=== PATIENT | male | born 1955 | race Caucasian/White ===

== ENCOUNTER → 2016-10-01 | Outpatient (CLI) | payer BC ==
[~2016-10-01] MED LIST: LOSA50TA6 PO; MELO7.5T5 PO; RIFA150C15 PO; SULF800T23 PO
[2016-10-01 13:28] LABS: BLOOD UREA NITROGEN 13 mg/dl (7-18); BUN/CREATININE RATIO 12.3 (10-20); CALCIUM 9.1 mg/dl (8.5-10.1); CARBON DIOXIDE 30 mmol/L (21-32); CHLORIDE 108 mmol/L (98-107); GLUCOSE 105 mg/dl (70-99); POTASSIUM 4.3 mmol/L (3.5-5.1); SODIUM 142 mmol/L (136-145)
[2016-10-01 13:29] LABS: RHEUMATOID FACTOR < 10.0 U/mL (0-15)
== END | disposition home or self-care (01) ==
LOC: C.LABMFLN 07:41
PROVIDERS: ATTEND Family Medicine
DX: N53.8 Other male sexual dysfunction (principal); G62.9 Polyneuropathy, unspecified; I10 Essential (primary) hypertension; M25.50 Pain in unspecified joint

== ENCOUNTER → 2016-10-20 | Outpatient (CLI) | payer BC ==
[~2016-10-20] VITALS: Ht 177.8 cm; Wt 95.5 kg
[2016-10-20 11:48] VITALS: BP 122/81; PULSE 66; Ht 177.8 cm; Wt 95.5 kg
== END | disposition home or self-care (01) ==
LOC: C.NEUR 11:24
PROVIDERS: ATTEND Family Medicine
DX: G62.9 Polyneuropathy, unspecified (principal); N53.19 Other ejaculatory dysfunction; N53.8 Other male sexual dysfunction; I10 Essential (primary) hypertension; M25.50 Pain in unspecified joint

== ENCOUNTER → 2016-12-27 | Outpatient (CLI) | payer BC | END | disposition home or self-care (01) | LOC: C.LABMFLN 10:41 | PROVIDERS: ATTEND Physician Assistant | DX: L03.811 Cellulitis of head [any part, except face] (principal) ==

== ENCOUNTER → 2017-01-04 | Outpatient (CLI) | payer BC ==
[~2017-01-04] MED LIST changes: -RIFA150C15 PO
== END | disposition home or self-care (01) ==
LOC: C.LABMFLN 08:46
PROVIDERS: ATTEND Family Medicine
DX: L03.811 Cellulitis of head [any part, except face] (principal)

== ENCOUNTER 2017-01-08 15:41 | Emergency (ER) | payer BC ==
[~2017-01-08] VITALS: Ht 177.8 cm; Wt 92.6 kg
[2017-01-08 15:44] VITALS: Ht 177.8 cm; Wt 92.6 kg
--- NOTE | 2017-01-08 16:15 | EMERGENCY ROOM VISIT NOTE ---
History First contact with patient: 15:49 Chief Complaint: WOUND RECHECK Stated Complaint: PACKING REPLACEMENT Nursing Triage Summary: Pt states he has MRSA in a posterior neck wound. States he is seen at the wound care clinic but the packing came out and he just needs that replaced. History of Present Illness The patient is a 61 year old male who presents to the Emergency Room via private vehicle with complaints of "packing replacement". The patient states that he follows with the wound care center for MRSA infections. Most recently, on the posterior aspect of his neck he had an abscess drained this past Tuesday. This was performed at the [facility] wound care center. He states that unfortunately the packing actually became removed therefore he is here today for repacking. He notes minimal pain, and has been taking Bactrim for the infection. He denies any fevers, chills and his tetanus is up-to-date. Review of Systems A complete 6-point Review of Systems was discussed with the patient, with pertinent positives and negatives listed in the History of Present Illness. All remaining Review of Systems questions can be considered negative unless otherwise specified. Past Medical/Surgical History MRSA infection. High blood pressure, skin problems Family History Diabetes, heart disease, high blood pressure, cancer. Social History Smoking Status: Never Smoker Marital Status: single Occupation Status: employed Current/Historical Medications Scheduled Losartan Potassium (Cozaar), 1 TAB PO DAILY Meloxicam (Mobic), 15 MG PO DAILY Sulfa/Trimethoprim (Bactrim Ds 800MG/160MG), 1 TAB PO BID Allergies Uncoded Allergies: blood pressure med (Adverse Reaction, Mild, cough, 01/07/17) Physical Exam Vital Signs Date Time Temp Pulse Resp B/P (MAP) Pulse Ox O2 Delivery O2 Flow Rate FiO2 01/08/17 15:44 36.7 85 16 118/73 95 Room Air Physical Exam VITAL SIGNS - Vital signs and nursing notes were reviewed. Patient is afebrile , normotensive, non-tachycardic and saturating well on room air 95%. GENERAL -61-year-old male appearing his stated age who is in no acute distress. Communicates well with provider and answers questions appropriately. SKIN - Without rashes. There is a healing infection on the posterior aspect with a linear incision of the transverse plane that is 1 cm in length. No pus drainage. Medical Decision & Procedures Medical Decision Patient was seen and evaluated as above. He is here for repacking of the wound that actually became unpacked. He is to follow-up with the wound care center this coming Tuesday. He requests repacking of the wound. After cleansing the region with Betadine, sterilely draping the region I irrigated the wound with normal saline, dried the region that packed with sterile packing gauze. Patient tolerated this well. This was secured in place with an adherent bandage. I initially had the area covered with Telfa and adherent gauze however it seemed to fall off the region. He was educated upon worrisome symptoms which to return, had questions prior to discharge, and was discharged home in good condition and is to follow-up on Tuesday with the wound care center. He is to return if worsening. In evaluation treatment this patient following differential diagnoses were entertained: Encounter for repacking of an abscess, among others. Impression Primary Impression: packing of incision Departure Information Dispostion Home / Self-Care Condition GOOD Referrals Anirudh Díaz M.D. (PCP) Patient Instructions My [facility] Additional Instructions You were seen in the emergency Department for packing of your previously drained abscess. Please watch for signs of worsening infection to include redness, swelling, drainage or any fevers or chills. If these are to develop please return immediately. Please continue your previously prescribed antibiotics. Please keep your follow-up appointment on Tuesday with the wound care center. Thank you for your time and have a great weekend!
[2017-01-08 16:26] VITALS: BP 115/71; PULSE 85; TEMP 36.7; O2SAT 97
[2017-01-14] MEDS ORDERED: RIFA150C15 PO (07:47)
== END 2017-01-08 16:28 | disposition home or self-care (01) ==
LOC: C.EDB 15:42 → C.EDD 16:28
DX: Z48.00 Encounter for change or removal of nonsurgical wound dressing (principal); A49.02 Methicillin resistant Staphylococcus aureus infection, unspecified site; I10 Essential (primary) hypertension; Z83.3 Family history of diabetes mellitus; Z80.9 Family history of malignant neoplasm, unspecified; Z82.49 Family history of ischemic heart disease and other diseases of the circulatory system; Z79.899 Other long term (current) drug therapy

== ENCOUNTER → 2017-02-03 | Outpatient (CLI) | payer BC ==
[~2017-02-03] VITALS: Ht 177.8 cm; Wt 90.7 kg
[~2017-02-03] MED LIST changes: +RIFA150C15 PO
[2017-02-03 10:36] VITALS: BP 120/75; PULSE 76; Ht 177.8 cm; Wt 90.7 kg
== END | disposition home or self-care (01) ==
LOC: C.NEUR 10:00
PROVIDERS: ATTEND Internal Medicine Pulmonary Disease
DX: G47.33 Obstructive sleep apnea (adult) (pediatric) (principal)

== ENCOUNTER → 2017-10-13 | Outpatient (CLI) | payer BC ==
[~2017-10-13] VITALS: Ht 177.8 cm; Wt 94.3 kg
[2017-10-13 13:41] VITALS: BP 119/88; PULSE 69; Ht 177.8 cm; Wt 94.3 kg
== END | disposition home or self-care (01) ==
LOC: C.NEUR 13:00
PROVIDERS: ATTEND Internal Medicine Pulmonary Disease
DX: G47.33 Obstructive sleep apnea (adult) (pediatric) (principal)

== ENCOUNTER 2019-05-20 23:56 | Observation (INO) ==
[2019-05-21] MEDS ORDERED: CHOLESTYRAMINE LIGHT 4 GM PKT PO STA (00:11)
[2019-05-21] MEDS: SODIUM CHLORIDE 0.9% 1000ML 1,000 ML IV SCH ×2 (00:37→01:16)
[2019-05-21 00:46] LABS: Basophils # (auto) 0.01 K/uL (0-0.2); Basophils % (auto) 0.2 %; Eosinophils # (auto) 0.02 K/uL (0-0.5); Eosinophils % (auto) 0.4 %; Hematocrit (blood only) 43.6 % (42-52); Hemoglobin 15.5 g/dL (14.0-18.0); Immature Granulocytes # (auto) 0.07 K/uL (0.00-0.02); Immature Granulocytes % (auto) 1.4 %; Lymphocytes # (auto) 1.07 K/uL (1.2-3.4); Lymphocytes % (auto) 20.8 %; Mean Corpuscular Hemoglobin 31.4 pg (25-34); Mean Corpuscular Hgb Conc 35.6 g/dL (32-36); Mean Corpuscular Volume 88.3 fL (80-100); Mean Platelet Volume 9.8 fL (7.4-10.4); Monocytes % (auto) 21.4 %; Neutrophils # (auto) 2.87 K/uL (1.4-6.5); Neutrophils % (auto) 55.8 %; Platelet Count 174 K/uL (130-400); RDW Standard Deviation 45.6 fL (36.4-46.3); Red Blood Count 4.94 M/uL (4.7-6.1); White Blood Count 5.14 K/uL (4.8-10.8)
[2019-05-21 01:09] LABS: Albumin Level 2.6 gm/dl (3.4-5.0); BUN Creatinine Ratio 20.3 (10-20); Calcium 8.4 mg/dl (8.5-10.1); Creatinine Clr Calc Pharmacy 61.2 ml/min; Est GFR (African American) 69.4; Est GFR (Non-African American) 59.9; Potassium 3.4 mmol/L (3.5-5.1)
[2019-05-21 01:11] LABS: Albumin Globulin Ratio 0.7 (0.9-2); Bilirubin,Total 0.4 mg/dl (0.2-1); Globulin 3.5 gm/dl (2.5-4.0); Total Protein 6.1 gm/dl (6.4-8.2)
[2019-05-21 04:17] LABS: Appearance Urine Clear (Clear); Bacteria Urine Automated Negative (Negative); Bilirubin Urine Negative (Negative); Blood Urine 2+ (Negative); Color Urine Yellow; Glucose Urine UA Negative (Negative); Ketones Urine 1+ (Negative); Leukocyte Esterase Urine Negative (Negative); Nitrite Urine Negative (Negative); Protein Urine 1+ (Negative); Specific Gravity Urine 1.027 (1.000-1.030); Urobilinogen Urine Negative (Negative); pH Urine 5.5 (4.5-7.5)
[2019-05-21] MEDS ORDERED: ACETAMINOPHEN 325 MG TAB PO PRN (04:56)
[2019-05-21] MEDS ORDERED: ONDANSETRON INJ 2 MG/ML 2 ML VIAL IV PRN (04:56)
--- NOTE | 2019-05-21 05:03 | Emergency Department Note ---
Entered by Elizabeth Griffith acting as a scribe for History of Present Illness General Chief complaint: Diarrhea Stated complaint: EXTREME DIARRHEA Time Seen by Provider: 05/21/19 00:06 Source: patient History of Present Illness Onset (ago): day(s) 3 Location: abdomen Pain Consistency: + other (worsening) Maximum Pain Intensity: 6 Quality: + other (diarrhea) Associated symptoms: + other (positive abdominal pain) The patient is a 64 year old male who presents to the Emergency Room with complaints of worsening diarrhea that began 3 days prior to arrival. The patient states that he has had abdominal pain during this time. The patient states that he did not eat anything out of the ordinary recently. The patient states that he has never had this before. The patient states that he was seen in the ED 2 days ago for these symptoms. He states that he has been taking the medications he was given in the ED since this time. The patient states that he gave a stool sample at this time. Home Medications Home Medications Medication Instructions Recorded Confirmed Type celecoxib 200 mg capsule 200 mg PO QAM #30 cap 02/19/19 05/21/19 Rx losartan 50 mg tablet 50 mg PO QAM #90 tab 03/21/19 05/21/19 Rx sildenafil 100 mg tablet 100 mg PO DAILY PRN #10 tab 04/12/19 05/21/19 Rx loperamide [Imodium A-D] 2 mg PO Q3H PRN 05/20/19 05/21/19 History aspirin 81 mg tablet,delayed 81 mg PO DAILY #90 tab 05/25/19 Rx release Allergies Allergy/AdvReac Type Severity Reaction Status Date / Time lisinopril AdvReac Mild cough Verified 05/21/19 00:42 Past Med/Surg History Medical History Acid reflux Hypertension Osteoarthritis Sleep apnea cpap Surgical History History of appendectomy History of cataract surgery LEFT History of colonoscopy History of tonsillectomy History of tooth extraction Family History Brother Family history of diabetes mellitus Hypertension Lymphoma Father Family history of diabetes mellitus Hypertension Mother Brain tumor Family/Other Cardiac disorder Grandfather Stroke Myocardial infarction Uncle Stroke Uncle Stroke Grandfather Myocardial infarction Social History Preferred Language: Omani Communication Ability: Effective Mac Developer Required: No Beliefs That Will Affect Care: None Current Living Situation: Alone Feels Safe at Home: No Is there a partner from a previous relationship who is making you feel unsafe now?: No Smoking Status: Never smoker Second Hand Exposure: No ; Hx Alcohol Use: No Hx Substance Use: No Review of Systems See HPI for pertinent positives & negatives. and A total of 10 systems reviewed and were otherwise negative Physical Exam Vital Signs Vital Signs - 24 hr 05/21/19 00:01 05/21/19 00:43 05/21/19 01:38 Temperature 36.4 C L Temperature Source Oral Sepsis Recent Fever Within 48 Hours No Sepsis Action Taken by Nursing No Action Required Pulse Rate 82 75 Pulse Rate [Finger] 75 75 Pulse Rhythm Regular Pulse Rhythm [Finger] Regular Regular Pulse Strength [Finger] Normal Normal Respiratory Rate 18 21 22 Respiratory Effort / Characteristics Non-Labored Spontaneous Non-Labored Spontaneous Non-Labored Spontaneous Respiratory Depth Normal Normal Normal Respiratory Pattern Regular Regular Regular Blood Pressure 151/89 H Blood Pressure [Left Arm] 131/76 143/76 H Blood Pressure Mean 109 Blood Pressure Mean [Left Arm] 94 98 Blood Pressure Position Sitting Blood Pressure Position [Left Arm] Lying Pulse Oximetry 99 97 96 Oxygen Delivery Method Room Air Room Air Room Air 05/21/19 03:04 Temperature Temperature Source Sepsis Recent Fever Within 48 Hours Sepsis Action Taken by Nursing Pulse Rate Pulse Rate [Finger] 86 Pulse Rhythm Pulse Rhythm [Finger] Regular Pulse Strength [Finger] Normal Respiratory Rate 24 Respiratory Effort / Characteristics Non-Labored Spontaneous Respiratory Depth Normal Respiratory Pattern Regular Blood Pressure Blood Pressure [Left Arm] 130/70 Blood Pressure Mean Blood Pressure Mean [Left Arm] 90 Blood Pressure Position Blood Pressure Position [Left Arm] Lying Pulse Oximetry 98 Oxygen Delivery Method Room Air GENERAL: Awake, alert, well-appearing, in no acute distress HENT: Normocephalic, atraumatic. Oropharynx unremarkable. EYES: Normal conjunctiva. Sclera non-icteric. NECK: Supple. No nuchal rigidity. FROM. No JVD. RESPIRATORY: Clear to auscultation. CARDIAC: Regular rate, normal rhythm. Extremities warm and well perfused. Pulses equal. ABDOMEN: Soft, non-distended. No tenderness to palpation. No rebound or guarding. No masses. RECTAL: Deferred. MUSCULOSKELETAL: Chest examination reveals no tenderness. The back is symmetrical on inspection without obvious abnormality. There is no CVA tenderness to palpation. No joint edema. LOWER EXTREMITIES: Calves are equal size bilaterally and non-tender. No edema. No discoloration. NEURO: Normal sensorium. No sensory or motor deficits noted. SKIN: No rash or jaundice noted. Course 0008: Past medical records reviewed. The patient was evaluated in room B6. A complete history and physical exam was performed. 0159: I checked on and updated the patient. 0233: [facility] Hospitalist was paged for further evaluation of the patient. 0256: [facility] for further evaluation. Administered Medications Discontinued Medications Acetaminophen (Tylenol) 650 mg PO Q4H PRN PRN Reason: mild pain or fever Stop: 06/20/19 04:55 Last Admin: 05/21/19 05:38 Dose: 650 mg Documented by: [id number] Celecoxib (Celebrex) 200 mg PO QAM BENOIT Stop: 06/20/19 08:59 Last Admin: 05/21/19 09:47 Dose: 200 mg Documented by: [id number] Cholestyramine Resin (Questran) 4 gm PO NOW STA Stop: 05/21/19 00:12 Last Admin: 05/21/19 00:36 Dose: 4 gm Documented by: [id number] Enoxaparin Sodium (Lovenox) 40 mg SQ Q24H BENOIT Stop: 06/20/19 08:59 Last Admin: 05/21/19 09:47 Dose: 40 mg Documented by: [id number] Famotidine (Pepcid) 20 mg PO BID BENOIT Stop: 06/20/19 08:59 Last Admin: 05/22/19 07:48 Dose: 20 mg Documented by: [id number] Admin: 05/21/19 20:02 Dose: 20 mg Documented by: [id number] Admin: 05/21/19 09:46 Dose: 20 mg Documented by: [id number] Sodium Chloride (Nss 1000ml) 1,000 mls @ 999 mls/hr IV .Q1H1M BENOIT Stop: 05/21/19 02:15 Last Infusion: 05/21/19 02:28 Dose: 0 mls/hr Documented by: [id number] Admin: 05/21/19 01:16 Dose: 999 mls/hr Documented by: [id number] Infusion: 05/21/19 01:16 Dose: 999 mls/hr Documented by: [id number] Admin: 05/21/19 00:37 Dose: 999 mls/hr Documented by: [id number] Potassium Chloride/Sodium Chloride (1/2 Nss + 20meq Kcl 1000ml) 20 meq in 1,000 mls @ 125 mls/hr IV .Q8H BENOIT Stop: 06/20/19 04:59 Last Infusion: 05/21/19 18:40 Dose: 0 mls/hr Documented by: [id number] Infusion: 05/21/19 18:40 Dose: 0 mls/hr Documented by: [id number] Admin: 05/21/19 14:01 Dose: 125 mls/hr Documented by: [id number] Infusion: 05/21/19 13:58 Dose: 125 mls/hr Documented by: [id number] Admin: 05/21/19 05:58 Dose: 125 mls/hr Documented by: [id number] Loperamide HCl (Imodium) 2 mg PO Q4H PRN PRN Reason: Diarrhea Stop: 06/20/19 17:41 Last Admin: 05/22/19 07:47 Dose: 2 mg Documented by: [id number] Losartan Potassium (Cozaar) 50 mg PO [facility] Stop: 06/20/19 08:59 Last Admin: 05/21/19 09:47 Dose: 50 mg Documented by: [id number] Losartan Potassium (Cozaar) [facility] [place] [facility] [place] Stop: 06/21/19 08:59 Last Admin: 05/22/19 07:48 Dose: 50 mg Documented by: [id number] Ondansetron HCl (Zofran) 4 mg IV Q6H PRN PRN Reason: nausea or vomiting Stop: 06/20/19 04:55 Last Admin: 05/21/19 05:38 Dose: 4 mg Documented by: [id number] Medical Decision Making Differential Diagnosis Differential: Viral, bacterial, parasitic, iatrogenic, C-Diff, malabsorption, irritable bowel disease, IBS, ischemic bowel, amongst other pathologies entertained. Medical Records Attestation: I reviewed the patient's medical records. Home Medications Current Medication List: was personally reviewed by me Laboratory Data Attestation: I reviewed the patient's lab results. Result diagrams: 05/22/19 05:49 05/22/19 05:49 Lab Results 05/21/19 05/21/19 05/21/19 Range/Units 00:16 00:16 00:56 WBC 5.14 (4.8-10.8) K/uL RBC 4.94 (4.7-6.1) M/uL Hgb 15.5 (14.0-18.0) g/dL Hct 43.6 (42-52) % MCV 88.3 (80-100) fL MCH 31.4 (25-34) pg MCHC 35.6 (32-36) g/dL RDW Std Deviation 45.6 (36.4-46.3) fL RDW Coeff of Ciro 14.0 (11.5-14.5) % Plt Count 174 (130-400) K/uL MPV 9.8 (7.4-10.4) fL Immature Gran % (Auto) 1.4 % Neut % (Auto) 55.8 % Lymph % (Auto) 20.8 % Wise % (Auto) 21.4 % Eos % (Auto) 0.4 % Baso % (Auto) 0.2 % Immature Gran # (Auto) 0.07 H (0.00-0.02) K/uL Neut # (Auto) 2.87 (1.4-6.5) K/uL Lymph # (Auto) 1.07 L (1.2-3.4) K/uL Wise # (Auto) 1.10 H (0.11-0.59) K/uL Eos # (Auto) 0.02 (0-0.5) K/uL Baso # (Auto) 0.01 (0-0.2) K/uL Sodium 140 (136-145) mmol/L Potassium 3.4 L (3.5-5.1) mmol/L Chloride 106 (98-107) mmol/L Carbon Dioxide 27 (21-32) mmol/L Anion Gap 7.0 (3-11) BUN 26 H (7-18) mg/dl Creatinine 1.26 (0.6-1.4) mg/dl Est Cr Clr Drug Dosing 61.2 ml/min Est GFR ( Amer) 69.4 Est GFR (Non-Af Amer) 59.9 BUN/Creatinine Ratio 20.3 H (10-20) Glucose 120 H (70-99) mg/dl Calcium 8.4 L (8.5-10.1) mg/dl Total Bilirubin 0.4 (0.2-1) mg/dl AST 24 (15-37) U/L ALT 26 (12-78) U/L Alkaline Phosphatase 45 (45-117) U/L Total Protein 6.1 L (6.4-8.2) gm/dl Albumin 2.6 L (3.4-5.0) gm/dl Globulin 3.5 (2.5-4.0) gm/dl Albumin/Globulin Ratio 0.7 L (0.9-2) Lipase 90 (73-393) U/L Stool Source Stl C. diff Tox B Gene (Neg) Stl Yersinia Inter OfSt Stl Yersinia Cult Final Stool Ova & Parasites Stool O & P Source Parasite Trichrome Stool Comments Giardia Antigen (NOT DETECTED) Norovirus RNA (PCR) NOT DETECTED Bacterial ID Micro Prelim Report 05/21/19 05/21/19 05/21/19 Range/Units 00:56 00:56 00:56 WBC (4.8-10.8) K/uL RBC (4.7-6.1) M/uL Hgb (14.0-18.0) g/dL Hct (42-52) % MCV (80-100) fL MCH (25-34) pg MCHC (32-36) g/dL RDW Std Deviation (36.4-46.3) fL RDW Coeff of Ciro (11.5-14.5) % Plt Count (130-400) K/uL MPV (7.4-10.4) fL Immature Gran % (Auto) % Neut % (Auto) % Lymph % (Auto) % Wise % (Auto) % Eos % (Auto) % Baso % (Auto) % Immature Gran # (Auto) (0.00-0.02) K/uL Neut # (Auto) (1.4-6.5) K/uL Lymph # (Auto) (1.2-3.4) K/uL Wise # (Auto) (0.11-0.59) K/uL Eos # (Auto) (0-0.5) K/uL Baso # (Auto) (0-0.2) K/uL Sodium (136-145) mmol/L Potassium (3.5-5.1) mmol/L Chloride (98-107) mmol/L Carbon Dioxide (21-32) mmol/L Anion Gap (3-11) BUN (7-18) mg/dl Creatinine (0.6-1.4) mg/dl Est Cr Clr Drug Dosing ml/min Est GFR ( Amer) Est GFR (Non-Af Amer) BUN/Creatinine Ratio (10-20) Glucose (70-99) mg/dl Calcium (8.5-10.1) mg/dl Total Bilirubin (0.2-1) mg/dl AST (15-37) U/L ALT (12-78) U/L Alkaline Phosphatase (45-117) U/L Total Protein (6.4-8.2) gm/dl Albumin (3.4-5.0) gm/dl Globulin (2.5-4.0) gm/dl Albumin/Globulin Ratio (0.9-2) Lipase (73-393) U/L Stool Source OTHER-STOOL Stl C. diff Tox B Gene Negative Cdiff Gene (Neg) Stl Yersinia Inter OfSt DNR Stl Yersinia Cult Final SEE NOTE Stool Ova & Parasites SEE NOTE Stool O & P Source OTHER-STOOL Parasite Trichrome SEE NOTE Stool Comments DNR DNR Giardia Antigen NOT DETECTED (NOT DETECTED) Norovirus RNA (PCR) Bacterial ID DNR Micro Prelim Report DNR Blood Pressure Blood Pressure Findings: Elevated blood pressure Blood Pressure Disposition: further management by hospitalist MDM Narrative This is a 64-year-old male who presents emergency department complaining of diarrhea. This is the patient's third visit in 3 days to the emergency department concerning his diarrhea. He did go 5 times while here in the emergency department. Based on the patient's previous stool cultures which are not growing anything out he was started on cholestyramine. I did discuss the case with the hospitalist service who did agree to admit the patient. Patient was in agreement with the treatment plan. Impression & Plan Hypertension, Diarrhea Discharge Plan Visit Data *Final* Discharge Date/Time: 05/21/19 04:12 Chief Complaint: Diarrhea Stated Complaint: EXTREME DIARRHEA ED Provider: Coy Benz Discharge Problem: Hypertension, Diarrhea Patient Disposition: Admitted As Inpatient Discharge Instructions Interventions: ED Discharge Assessment Last Done: 05/21/19 04:12 Discharge Problem: Hypertension Qualifiers: Hypertension type: unspecified Qualified Code(s): I10 - Essential (primary) hypertension Diarrhea Qualifiers: Diarrhea type: unspecified type Qualified Code(s): R19.7 - Diarrhea, unspecified The scribe's documentation has been prepared under my direction and personally reviewed by me in its entirety. I confirm that the note above accurately reflects all work, treatment, procedures, and medical decision making performed by me.
--- NOTE | 2019-05-21 05:24 | History & Physical Report ---
Date of Service May 21, 2019 Assessment & Plan (1) Diarrhea: OBS GMF IVF antiemetic Cholestyramine dose given in the ED Clear liquid diet GI consult (2) Colitis: I suspect this is viral cause, but have to consider bacterial and autoimmune. (3) Hypertension: Continue Losartan. History of Present Illness 64 y/o male presented to the ED with persistent, severe non-bloody diarrhea of 3 days duration. This is associated with diffuse abdominal pain. This is the third time he has been to the ED with these symptoms. Ed physician noted that the patient a 5 stools during time in the ED. He has had no travel outside the area. No drinking stream water or well water. Primary Care Provider: Capo Ashford DO Allergies Allergy/AdvReac Type Severity Reaction Status Date / Time lisinopril AdvReac Mild cough Verified 05/21/19 00:42 Home Medications Home Medications Medication Instructions Recorded Confirmed Type celecoxib 200 mg capsule 200 mg PO QAM #30 cap 02/19/19 05/21/19 Rx losartan 50 mg tablet 50 mg PO QAM #90 tab 03/21/19 05/21/19 Rx sildenafil 100 mg tablet 100 mg PO DAILY PRN #10 tab 04/12/19 05/21/19 Rx dicyclomine 20 mg PO TID PRN 3 Days #9 tab 05/20/19 05/21/19 Rx ibuprofen [Advil] 200 mg PO Q6H PRN 05/20/19 05/21/19 History loperamide [Imodium A-D] 2 mg PO Q3H PRN 05/20/19 05/21/19 History ondansetron HCl [Zofran] 4 mg PO TID PRN 5 Days #15 tab 05/20/19 05/21/19 Rx Past Med/Surg History Medical History Acid reflux Hypertension Osteoarthritis Sleep apnea cpap Surgical History History of appendectomy History of cataract surgery LEFT History of colonoscopy History of tonsillectomy History of tooth extraction Family History Brother Family history of diabetes mellitus Hypertension Lymphoma Father Family history of diabetes mellitus Hypertension Mother Brain tumor Family/Other Cardiac disorder Grandfather Stroke Myocardial infarction Uncle Stroke Uncle Stroke Grandfather Myocardial infarction Social History Preferred Language: Greenlandic Communication Ability: Effective Cutter Hot Knife Required: No Beliefs That Will Affect Care: None Current Living Situation: Alone Feels Safe at Home: Yes Smoking Status: Never smoker Second Hand Exposure: No ; Hx Alcohol Use: Yes Hx Substance Use: No Review of Systems Review of Systems: Constitutional- no fever; no weight loss Eyes- no acute visual changes ENT- no sinus drainage; no pharyngitis Pulmonary- no cough, no wheezing, no shortness of breath Cardiac- no chest pain, no palpitations, no orthopnea, no dependent edema GI- + nausea, + anorexia, see HPI - no dysuria, no hematuria Musculoskeletal- no arthralgias, no myalgias Derm- no rashes, no new skin lesions, no changing skin lesions Hematologic- no unusual bruising, no unusual bleeding Lymphatics- no adenopathy Endocrine- no polyuria or polydipsia; no heat or cold intolerance Neuro- no headaches, no focal neurologic symptoms Psych- no anxiety, no depression Physical Exam Physical Exam: General- adult male, NAD Head- atraumatic Eyes- PERRL, EOMI, anicteric ENT- oropharynx clear Neck- supple, no JVD, no adenopathy, no thyromegaly. Lungs- CTA b/l no R/R/W. Heart- regular rhythm; no murmur, no gallop, no rub appreciated Abdomen- normal bowel sounds, soft, nontender. Extremities- no pretibial edema, no calf tenderness; peripheral pulses intact Neuro- alert, oriented x 3; PERRL, EOMI; sewer contractor II-XII grossly intact, non-focal Skin- warm & dry Results & Data Vital Signs (Past 12 Hours) Vital Signs Temp Pulse Pulse Resp BP BP Pulse Ox 05/21/19 03:04 86 24 130/70 98 05/21/19 01:38 75 22 143/76 H 96 05/21/19 00:43 75 75 21 131/76 97 05/21/19 00:01 36.4 C L 82 18 151/89 H 99 Laboratory Results Laboratory Results WBC 5.14 K/uL (4.8-10.8) 05/21/19 00:16 RBC 4.94 M/uL (4.7-6.1) 05/21/19 00:16 Hgb 15.5 g/dL (14.0-18.0) 05/21/19 00:16 Hct 43.6 % (42-52) 05/21/19 00:16 MCV 88.3 fL (80-100) 05/21/19 00:16 MCH 31.4 pg (25-34) 05/21/19 00:16 MCHC 35.6 g/dL (32-36) 05/21/19 00:16 RDW Std Deviation 45.6 fL (36.4-46.3) 05/21/19 00:16 RDW Coeff of Ciro 14.0 % (11.5-14.5) 05/21/19 00:16 Plt Count 174 K/uL (130-400) 05/21/19 00:16 MPV 9.8 fL (7.4-10.4) 05/21/19 00:16 Immature Gran % (Auto) 1.4 % 05/21/19 00:16 Neut % (Auto) 55.8 % 05/21/19 00:16 Lymph % (Auto) 20.8 % 05/21/19 00:16 [place] % (Auto) 21.4 % 05/21/19 00:16 Eos % (Auto) 0.4 % 05/21/19 00:16 Baso % (Auto) 0.2 % 05/21/19 00:16 Immature Gran # (Auto) 0.07 K/uL (0.00-0.02) H 05/21/19 00:16 Neut # (Auto) 2.87 K/uL (1.4-6.5) 05/21/19 00:16 Lymph # (Auto) 1.07 K/uL (1.2-3.4) L 05/21/19 00:16 [place] # (Auto) 1.10 K/uL (0.11-0.59) H 05/21/19 00:16 Eos # (Auto) 0.02 K/uL (0-0.5) 05/21/19 00:16 Baso # (Auto) 0.01 K/uL (0-0.2) 05/21/19 00:16 Sodium 140 mmol/L (136-145) 05/21/19 00:16 Potassium 3.4 mmol/L (3.5-5.1) L 05/21/19 00:16 Chloride 106 mmol/L (98-107) 05/21/19 00:16 Carbon Dioxide 27 mmol/L (21-32) 05/21/19 00:16 Anion Gap 7.0 (3-11) 05/21/19 00:16 BUN 26 mg/dl (7-18) H 05/21/19 00:16 Creatinine 1.26 mg/dl (0.6-1.4) 05/21/19 00:16 Est Cr Clr Drug Dosing 61.2 ml/min 05/21/19 00:16 Est GFR ( Amer) 69.4 05/21/19 00:16 Est GFR (Non-Af Amer) 59.9 05/21/19 00:16 BUN/Creatinine Ratio 20.3 (10-20) H 05/21/19 00:16 Glucose 120 mg/dl (70-99) H 05/21/19 00:16 Calcium 8.4 mg/dl (8.5-10.1) L 05/21/19 00:16 Total Bilirubin 0.4 mg/dl (0.2-1) 05/21/19 00:16 AST 24 U/L (15-37) 05/21/19 00:16 ALT 26 U/L (12-78) 05/21/19 00:16 Alkaline Phosphatase 45 U/L (45-117) 05/21/19 00:16 Total Protein 6.1 gm/dl (6.4-8.2) L 05/21/19 00:16 Albumin 2.6 gm/dl (3.4-5.0) L 05/21/19 00:16 Globulin 3.5 gm/dl (2.5-4.0) 05/21/19 00:16 Albumin/Globulin Ratio 0.7 (0.9-2) L 05/21/19 00:16 Lipase 90 U/L (73-393) 05/21/19 00:16 Urine Color Yellow 05/21/19 04:00 Urine Appearance Clear (Clear) 05/21/19 04:00 Urine pH 5.5 (4.5-7.5) 05/21/19 04:00 Ur Specific [place] 1.027 (1.000-1.030) 05/21/19 04:00 Urine Protein 1+ (Negative) H 05/21/19 04:00 Urine Glucose (UA) Negative (Negative) 05/21/19 04:00 Urine Ketones 1+ (Negative) H 05/21/19 04:00 Urine Blood 2+ (Negative) H 05/21/19 04:00 Urine Nitrite Negative (Negative) 05/21/19 04:00 Urine Bilirubin Negative (Negative) 05/21/19 04:00 Urine Urobilinogen Negative (Negative) 05/21/19 04:00 Ur Leukocyte Esterase Negative (Negative) 05/21/19 04:00 Urine WBC (Auto) 1-5 /hpf (0-5) 05/21/19 04:00 Urine RBC (Auto) 10-30 /hpf (0-4) H 05/21/19 04:00 U Hyaline Cast (Auto) 1-5 /lpf (0-5) 05/21/19 04:00 U Epithel Cells (Auto) 10-20 /lpf (0-5) H 05/21/19 04:00 Urine Bacteria (Auto) Negative (Negative) 05/21/19 04:00 Stl C. diff Tox B Gene Negative Cdiff Gene (Neg) 05/21/19 00:56 Diagnostic Findings [place], [place] [phone] CT Scan Report Patient: DAVID ANAND EAdmit Date: 05/20/19 MR#: [id number] Acct ID:[id number]: Date: [address] [facility] Zip: [place] [address] Age: 64Location: ED Sex: M Room/Bed: Att Phy:Diagnosis: DIARRHEA, ABDOMINAL PAIN [place] Phy: Capo Ashford, DOService Date: 05/20/19 Fam Phy:Interpreting Phy: Deep Del Cid MD Admit Phy: Ordering Phy: Nato Swan M.D. cc: ~ CT abd pelvis IV con only CLINICAL HISTORY: 64 years-old Male presenting with nausea, vomiting, diarrhea, abdominal pain. TECHNIQUE: Multidetector CT of the abdomen and pelvis was performed after the administration of intravenous contrast. IV contrast: 93 mL of Optiray 320. One or more dose lowering techniques were used consistent with the principles of ALARA (as low as reasonably achievable), including automatic exposure control, mA or kV adjustment to individual patient size, and/or use of iterative reconstruction. COMPARISON: None. CT DOSE (mGy.cm): The estimated cumulative dose is 440.73 mGy.cm. FINDINGS: Maintenance Truck Driver topogram: Unremarkable. Lung bases: Normal heart size. No pericardial or pleural effusion. Minimal dependent changes likely atelectasis. Liver: Normal morphology. Subcentimeter well-defined hypodense lesion in the right hepatic lobe likely hepatic cyst. Patent hepatic vasculature. Biliary: No intrahepatic or extrahepatic biliary ductal dilatation. Normal gallbladder. Pancreas: Normal. Spleen: Normal. Adrenal glands: Normal. Kidneys and ureters: Few cysts. Otherwise normal renal parenchyma. No nephroli thiasis or hydronephrosis. Ureters nondistended. Bladder: Circumferential bladder wall thickening. Pelvic organs: Prostate enlargement likely secondary to benign prostatic hyperplasia. Bowel: Extensive wall thickening of the colon extending from the rectum proximally to the ascending colon and cecum. The appendix is not visualized. No bowel obstruction. Peritoneal cavity: Trace free fluid in the pelvis likely reactive. No free intraperitoneal gas. No pneumatosis. Lymph nodes: No enlarged lymph nodes in the abdomen or pelvis. Vasculature: Atherosclerosis of the normal caliber abdominal aorta. IVC patent. Abdominal wall: Small fat-containing left inguinal hernia. Musculoskeletal: Degenerative changes of the spine. IMPRESSION: 1. Evidence of pancolitis, which is mild to moderate and most likely infectious or inflammatory in etiology. 2. Chronic bladder outlet obstruction secondary to prostatomegaly. Electronically signed by: Deep Del Cid M.D. 05/20/2019 10:48 AM Dictated: 05/20/19 1043 Transcribed: 05/20/19 1043 Code Status & VTE Plan VTE Prophylaxis Plan VTE Prophylaxis will be ordered: Yes PG Care Time/CCT Total # of Minutes Spent Total Time Spent: 45 Total Time Spent with Patient: Total time spent is greater than 50% in coordination of care (as documented) at patient's floor/unit and/or counseling patient: (1) Diarrhea Diarrhea type: presumed infectious Qualified Code(s): R19.7 - Diarrhea, unspecified (2) Hypertension Hypertension type: unspecified Qualified Code(s): I10 - Essential (primary) hypertension
[2019-05-21] MEDS: SODIUM CHLOR 0.45% + 20MEQ KCL 20 MEQ/1,000 ML BAG IV SCH ×2 (05:58→14:01)
[2019-05-21] MEDS ORDERED: ENOXAPARIN INJ 40 MG/0.4 ML SYR SQ SCH (09:00)
[2019-05-21] MEDS ORDERED: CeleBREX 200 MG CAP PO SCH (09:00)
[2019-05-21] MEDS ORDERED: LOSARTAN POTASSIUM 50 MG TAB PO SCH (09:00)
[2019-05-21] MEDS: FAMOTIDINE 20 MG TAB PO SCH ×2 (09:46→20:02)
--- NOTE | 2019-05-21 14:36 | Gastrointestinal Consultation ---
Date of Consultation May 21, 2019 Assessment & Plan (1) Diarrhea: blood in stools, pancolitis on CT Suspect infectious etiology given pancolitis and abrupt onset. Crohns of UC less likely given abrupt onset and ischemic less likely given pancolitis. Stools for Cdiff neg, cx pending. Continue supportive care and if resolves then colo as outpt in 6 weeks. If cxs neg and does not improve of worsens then flex sig as inpt. At the moment seems to be improving. History of Present Illness Reason for Consultation: diarrrhea, pancolitis Requesting Physician: Dr Hitesh Munroe Attending Physician: Raymond Curtis MD History of Present Illness CC diarrhea HPI Pt while at a conference few days ago had abrupt onset of nausea and sweats/chills. Several hours later he developed diarrhea every 10 minutes associated with blood in the stools. He went to the ER 3 time and on third visit was admitted. CT a/p 05/20/19 showed liver cyst, bladder wall thickening, enlarged prostate., wall thickening from rectum to cecum. He has lower abd cramping. Today stools only every hour which is an improvement. Noted on review of [facility] records that he had a screening colonsocoopy 03/[address] Rollins which showed diverticulosis. His mother had crohns disease. He has not similar symptoms to these in the past. Allergies Allergy/AdvReac Type Severity Reaction Status Date / Time lisinopril AdvReac Mild cough Verified 05/21/19 00:42 Home Medications Home Medications Medication Instructions Recorded Confirmed Type celecoxib 200 mg capsule 200 mg PO QAM #30 cap 02/19/19 05/21/19 Rx losartan 50 mg tablet 50 mg PO QAM #90 tab 03/21/19 05/21/19 Rx sildenafil 100 mg tablet 100 mg PO DAILY PRN #10 tab 04/12/19 05/21/19 Rx dicyclomine 20 mg PO TID PRN 3 Days #9 tab 05/20/19 05/21/19 Rx ibuprofen [Advil] 200 mg PO Q6H PRN 05/20/19 05/21/19 History loperamide [Imodium A-D] 2 mg PO Q3H PRN 05/20/19 05/21/19 History ondansetron HCl [Zofran] 4 mg PO TID PRN 5 Days #15 tab 05/20/19 05/21/19 Rx Patient History Medical History Acid reflux Hypertension Osteoarthritis Sleep apnea cpap Surgical History History of appendectomy History of cataract surgery LEFT History of colonoscopy History of tonsillectomy History of tooth extraction Family History Brother Family history of diabetes mellitus Hypertension Lymphoma Father Family history of diabetes mellitus Hypertension Mother Brain tumor Family/Other Cardiac disorder Grandfather Stroke Myocardial infarction Uncle Stroke Uncle Stroke Grandfather Myocardial infarction Social History Preferred Language: Syriac Communication Ability: Effective Medical Transport Specialist Required: No Beliefs That Will Affect Care: None Current Living Situation: Alone Feels Safe at Home: No Is there a partner from a previous relationship who is making you feel unsafe now?: No Smoking Status: Never smoker Second Hand Exposure: No ; Hx Alcohol Use: No Hx Substance Use: No Review of Systems Review of Systems: All systems reviewed & are unremarkable except as noted in HPI & below Physical Exam Constitutional: WD/WN, vitals as above Eyes: PERRL, conjunctivae normal, anicteric sclerae ENMT: external ear and nose normal, oropharynx normal Neck: normal visual inspection and trachea midline Respiratory: normal respiratory effort, lungs clear to auscultation Cardiovascular: RRR, no murmur, no edema Gastrointestinal (Abdomen): normal bowel sounds, soft, nontender, no hepatosplenomegaly Musculoskeletal: no cyanosis or clubbing, extremities motor strength 5/5 Skin: normal turgor Neurologic: patellar DTR's 2+ bilat, sensation intact Psychiatric: A+Ox3, euthymic affect Results & Data Vital Signs (Past 12 Hours) Vital Signs Temp Pulse Resp BP Pulse Ox 05/21/19 07:13 37.0 C 72 18 134/82 97 05/21/19 05:00 36.8 C 78 18 141/84 H 98 05/21/19 03:04 86 24 130/70 98 (1) Diarrhea Diarrhea type: presumed infectious Qualified Code(s): R19.7 - Diarrhea, unspecified
--- NOTE | 2019-05-21 15:35 | Hospitalist Progress Note ---
Date of Service May 21, 2019 Assessment & Plan (1) Colitis: Pancolitis. Suspected viral. Appreciate gastroenterology review. Unusual history of his mother being diagnosed with Crohn's in her mid 60s but this remains much less likely. Appears to be improving although patient lives alone therefore we will keep overnight under observation with likely discharge tomorrow morning, since he is still not having adequate oral intake. Discontinue IV fluids at this time. (2) Diarrhea: Stool culture on this admission pending at this time. However culture taken on May 19 negative for Shiga toxin, Salmonella, Shigella or Campylobacter. Negative C. difficile on this admission. Giardia, norovirus, ova and parasites, Yersinia outstanding this time. Continue on clear liquid diet. Encourage p.o. intake. Imodium as needed Discontinue Celebrex due to bloody stool. (3) Hypertension: Continue Losartan. (4) Hematuria: PT/INR, PTT with a.m. labs PSA normal in December 2018 Recommend follow-up UA with micro in 4 to 6 weeks. (5) Fecal occult blood test positive: PT/INR, PTT with a.m. labs. Suspect due to pancolitis above. Follow-up colonoscopy recommended in 6 weeks. (6) DVT prophylaxis: Will discontinue Lovenox due to good mobility with bloody stools and microscopic hematuria. Subjective Confirmed history with the patient as per H&P. Review of Systems Review of Systems: All systems reviewed & are unremarkable except as noted in HPI & below Physical Exam Constitutional: WD/WN, vitals as above Eyes: PERRL, conjunctivae normal, anicteric sclerae Respiratory: normal respiratory effort, lungs clear to auscultation Cardiovascular: RRR, no murmur, no edema Gastrointestinal (Abdomen): Inspection/Auscultation: abdomen normal to inspection and + hyperactive bowel sounds Percussion/Palpation: + abdomen tender (generalized but worse in lower abdomen) and abdomen soft; no guarding and abdomen not rigid Musculoskeletal: no cyanosis or clubbing, extremities motor strength 5/5 Skin: no rashes, warm and dry Neurologic: moves all extremities and awake; no focal motor deficits and not confused Psychiatric: A+Ox3, euthymic affect Results & Data Vital Signs (Past 12 Hours) Vital Signs Temp Pulse Resp BP Pulse Ox 05/21/19 07:13 98.6 F 72 18 134/82 97 05/21/19 05:00 98.2 F 78 18 141/84 H 98 PG Care Time/CCT Total # of Minutes Spent Total Time Spent with Patient: Total time spent is greater than 50% in coordination of care (as documented) at patient's floor/unit and/or counseling patient: (1) Hematuria Hematuria type: asymptomatic microscopic Qualified Code(s): R31.21 - Asymptomatic microscopic hematuria (2) Diarrhea Diarrhea type: presumed infectious Qualified Code(s): R19.7 - Diarrhea, unspecified (3) Hypertension Hypertension type: unspecified Qualified Code(s): I10 - Essential (primary) hypertension
[2019-05-21] MEDS ORDERED: LOPERAMIDE HCL 2 MG CAP PO PRN (17:42)
[2019-05-22 06:03] LABS: Hematocrit (blood only) 42.7 % (42-52); Hemoglobin 15.3 g/dL (14.0-18.0); Mean Corpuscular Hemoglobin 31.6 pg (25-34); Mean Corpuscular Hgb Conc 35.8 g/dL (32-36); Mean Corpuscular Volume 88.2 fL (80-100); Mean Platelet Volume 9.3 fL (7.4-10.4); Platelet Count 169 K/uL (130-400); RDW Coefficient of Variation 14.2 % (11.5-14.5); RDW Standard Deviation 46.5 fL (36.4-46.3); Red Blood Count 4.84 M/uL (4.7-6.1); White Blood Count 5.41 K/uL (4.8-10.8)
[2019-05-22 06:41] LABS: Partial Thromboplastin Ratio 1.1; Partial Thromboplastin Time 28.8 Seconds (21.0-31.0); Prothrombin Time 10.6 Seconds (9.0-12.0)
[2019-05-22 06:48] LABS: Albumin Globulin Ratio 0.7 (0.9-2); Albumin Level 2.4 gm/dl (3.4-5.0); BUN Creatinine Ratio 14.5 (10-20); Bilirubin,Total 0.4 mg/dl (0.2-1); Calcium 8.7 mg/dl (8.5-10.1); Creatinine Clr Calc Pharmacy 82.9 ml/min; Est GFR (African American) 90.7; Est GFR (Non-African American) 78.2; Globulin 3.6 gm/dl (2.5-4.0)
[2019-05-22 07:00] LABS: ALC (manual) 2.16 K/uL (1.2-3.4); ANC (manual) 2.45 K/uL (1.4-6.5); Lymphocytes # (manual) 1.27 K/uL (1.2-3.4); Lymphocytes % (manual) 23.5 %; Monocytes % (manual) 14.8 %; Neutrophils # (manual) 2.45 K/uL (1.4-6.5); Neutrophils % (manual) 45.2 %; Reactive Lymphocytes # (manual) 0.89 K/uL; Reactive Lymphocytes % (manual) 16.5 %; Toxic Granulation 1+
--- NOTE | 2019-05-22 07:39 | Discharge Summary ---
Date of Service May 22, 2019 Discharge Data Allergies Allergy/AdvReac Type Severity Reaction Status Date / Time lisinopril AdvReac Mild cough Verified 05/21/19 00:42 Consultations 05/21/19 02:04 ED Decision to Admit Stat 05/21/19 04:56 Consult Gastroenterology Routine Hospital Course (1) Colitis: Pancolitis. Suspected viral. Appreciate gastroenterology review. Unusual history of his mother being diagnosed with Crohn's in her mid 60s but this remains much less likely. Appears to be improving although patient lives alone therefore we will keep overnight under observation with likely discharge tomorrow morning, since he is still not having adequate oral intake. Discontinue IV fluids at this time. (2) Diarrhea: Stool culture on this admission pending at this time. However culture taken on May 19 negative for Shiga toxin, Salmonella, Shigella or Campylobacter. Negative C. difficile on this admission. Giardia, norovirus, ova and parasites, Yersinia outstanding this time. Continue on clear liquid diet. Encourage p.o. intake. Imodium as needed Discontinue Celebrex due to bloody stool. (3) Hypertension: Continue Losartan. (4) Hematuria: PT/INR, PTT with a.m. labs PSA normal in December 2018 Recommend follow-up UA with micro in 4 to 6 weeks. (5) Fecal occult blood test positive: PT/INR, PTT with a.m. labs. Suspect due to pancolitis above. Follow-up colonoscopy recommended in 6 weeks. (6) DVT prophylaxis: Will discontinue Lovenox due to good mobility with bloody stools and microscopic hematuria. Discharge Plan Discharge Items Patient Disposition: Home - Self-Care Reason For Visit: PERSISTENT DIARRHEA Discharge Diagnosis: Infectious colitis Blood in stool Microscopic hematuria (blood in urine) Activity: Resume your previous activity Non-emergency contact: Primary Care Provider Call non-emergency contact if: you have any medication questions and your symptoms worsen Follow-up/Referrals: Capo Ashford, DO [Primary Care Provider] - 05/28/19 9:15 am (Please, follow up with Dr. Capo Ashford on TuesdayMay 28 at 9:15 am. *If you need to change this appointment, call the office at [phone].) Mc Naik [Physician] - (Colonoscopy in 6 weeks) Diet: Full liquid Ambulatory Orders: Urine rflx Microscopic (Routine) Timeframe: 4 Weeks Location: Determined by Patient Ordered By: Raymond Cleary Attending Provider Instructions: You were observed overnight at [facility] due to persistent diarrhea. Initial stool cultures (taken on May 19) and c. diff stool tests were negative for bacterial infection. Other tests for Yersinia, giardia, parasites and ova are pending at the time of discharge. Please follow up with your PCP regarding the results of these. You were diagnosed with infectious colitis (inflammation of your colon) which appears to be improving. Please continue to take loperamide as needed to help with the diarrhea and dicyclomine for abdominal cramping. Recommend advancing your diet every 24 hours from full liquid, to soft diet, to full diet as tolerated. Due to blood in stool recommend holding ibuprofen and Celebrex until follow up with your PCP. You were also reviewed by gastroenterology and recommend colonoscopy in approximately 6 weeks (please call the above number to arrange or follow up with PCP for referral if required). You also were incidentally noted to have red blood cells in your urine. I would recommend repeating this in approximately 4-6 weeks to check for resolution. Pending Studies at Discharge: Yes (Stool ova + parasites, Yersina, Giardia) Stand-Alone Forms: My [facility], Smoking Cessation Medications and DC Order Prescriptions: Continued celecoxib 200 mg capsule 200 mg PO QAM Qty: 30 RF: 5 losartan 50 mg tablet 50 mg PO QAM Qty: 90 RF: 1 sildenafil 100 mg tablet 100 mg PO DAILY PRN (Reason: sexual activity) Qty: 10 RF: 0 loperamide [Imodium A-D] 2 mg Tablet 2 mg PO Q3H PRN (Reason: Diarrhea) RF: 0 ondansetron HCl [Zofran] 4 mg tablet 4 mg PO TID PRN (Reason: nausea and vomiting) 5 Days Qty: 15 RF: 0 dicyclomine 20 mg tablet 20 mg PO TID PRN (Reason: abdominal pain) 3 Days Qty: 9 RF: 0 Discontinued ibuprofen [Advil] 200 mg Tablet 200 mg PO Q6H PRN (Reason: Pain) RF: 0 Admission Data Admit Date/Time: 05/21/19 03:41 Attending Provider: Raymond Curtis Admit Provider: Hitesh Munroe Primary Care Provider: Capo Ashford Other Providers: Hitesh Munroe ; Darien Rollins
[2019-05-22] MEDS: FAMOTIDINE 20 MG TAB PO SCH (07:48)
[2019-05-22] MEDS ORDERED: LOSARTAN POTASSIUM 50 MG TAB PO SCH (09:00)
[2019-05-24 13:50] LABS: Comment DNR; Organism #1 DNR; Source OTHER-STOOL
[2019-05-24 15:09] LABS: Giardia EIA NOT DETECTED (NOT DETECTED)
== END 2019-05-22 13:08 | disposition home or self-care (01) ==
LOC: 2W 23:56 → ED 23:56 → SUATTDRO 05-21 03:41 → 2W 05-21 04:12

== ENCOUNTER 2020-10-10 10:41 | Observation (INO) ==
--- NOTE | 2020-10-10 11:14 | Emergency Department Note ---
Impression & Plan Near syncope, HTN (hypertension), High serum chloride ED Provider Note NAME: DAVID ANAND AGE: 65 SEX: M : 1955 ARRIVES VIA: Walk-In INFORMANT: Patient ED PROVIDER(S): Terrell Herrmann DO CHIEF COMPLAINT: Near syncope HPI: Patient is a 65-year-old male who presents to the ER for near syncopal event. He was seen here yesterday and discharged following an unremarkable work-up including a CT angio of the chest as well as a negative CT head. He was working out and became lightheaded pale and weak. He notes he could not stand up. He could only hold on and was eventually assisted. He did not pass out. Today he went to work as he was feeling better. He was sitting in his chair with the same symptoms that occurred but not as bad. He denies any headache or change in vision. No chest pain or shortness of breath. No nausea, vomiting, or diarrhea. No dysuria, urgency, or frequency. No other exacerbating or remitting factors. He does have a history of hypertension and COPD. ROS: See above HPI for pertinent positives & negatives. A total of 10 systems reviewed and were otherwise negative. PAST MEDICAL HISTORY:See Below PAST SURGICAL HISTORY:See Below FAMILY HISTORY:See Below SOCIAL HISTORY:See Below HOME MEDICATIONS:See Below ALLERGIES:See Below VITALS:See Below PHYSICAL EXAMINATION: GENERAL: Sitting up in bed, alert, well appearing, well nourished, no distress, non-toxic EYE EXAM: normal conjunctiva. PERRL and EOM's intact. OROPHARYNX: no exudate, no erythema, lips, buccal mucosa, and tongue normal and mucous membranes are moist NECK: supple, no nuchal rigidity, no adenopathy, non-tender LUNGS: Clear to auscultation. Normal chest wall mechanics HEART: no murmurs, S1 normal and S2 normal ABDOMEN: abdomen soft, non-tender, normo-active bowel sounds, no masses, no rebound or guarding. BACK: Back is symmetrical on inspection and there is no deformity, no midline tenderness, no CVA tenderness. SKIN: no rashes and no bruising UPPER EXTREMITIES: upper extremities are grossly normal. LOWER EXTREMITIES: No pitting edema. NEURO EXAM: Normal sensorium, cranial nerves II-XII intact, normal speech, no weakness of arms, no weakness of legs. No drift. Finger to nose intact. Gross sensation intact. Reyg-wa-pogx intact. Rapid alternating movements of upper extremities intact. MEDICAL DECISION MAKING: Patient is a 65-year-old male who presents the ER for near syncopal episode yesterday. He had a CT head and CT angio of the chest which were unremarkable. He was eventually discharged. He presents today for the same symptoms. These were discussed with cardiology at the time and they were recommended close follow-up as an outpatient. He notes that these symptoms generally start with unsteadiness and otherwise has a difficulty describing them but notes that he becomes generally pale lightheaded and diffusely weak. IV was established blood work was obtained. Labs show no significant leukocytosis or anemia. BMP with a slightly elevated chloride. LFTs bilirubin troponin and lipase were negative. Covid was negative. Chest x-ray was unremarkable and EKG was nondiagnostic. Patient was updated bedside. He was given a dose of Antivert and discussed with hospitalist due to instructions to return to the hospital for worsening symptoms or recurrence. Triage Nursing notes reviewed. Limited review of prior medical records performed Vital Signs: reviewed and remarkable for no significant abnormalities Differential diagnosis: Differential diagnoses includes but is not limited to gastritis, peptic ulcer disease, GERD, gallbladder disease, pancreatitis, small bowel obstruction, acute coronary syndrome, pericarditis, ischemic bowel, irritable bowel disease, irritable bowel syndrome, appendicitis, diverticulitis, malignancy, hernia, urinary tract infection, torsion, /ectopic (if female), perforation, trauma, infectious. ER treatment provided: See below Diagnostics interpreted by me: ECG: Sinus bradycardia rate of 50 Normal axis First-degree AV block No PVCs QTC 408 Cardiac Monitoring: An order was placed for continuous cardiac monitoring. The monitor shows a rate of 65 with sinus rhythm. Laboratory studies: As stated above and show below. Imaging studies: Portable AP upright 1 view the chest shows no focal infiltrate or pneumothorax Consultation(s): Discussed with the hospitalist for further evaluation Procedures: none Critical Care: None Past Med/Surg History Medical History (Updated 10/10/20 @ 15:47 by Terrell Herrmann DO) Acid reflux Hypertension Infection, Shigella Sleep apnea cpap Surgical History History of appendectomy History of cataract surgery LEFT History of colonoscopy History of tonsillectomy History of tooth extraction S/P rotator cuff repair Family History Brother Family history of diabetes mellitus Hypertension Lymphoma Father Family history of diabetes mellitus Hypertension Mother Brain tumor Family/Other Cardiac disorder Grandfather (Paternal) Stroke Myocardial infarction Uncle Stroke Grandfather (Maternal) Myocardial infarction Denies family history of Ovarian cancer Prostate cancer Breast cancer Colorectal cancer Social History Smoking Status: Never smoker Second Hand Exposure: No; Hx Alcohol Use: No Hx Substance Use: No Preferred Language: Slovenian Communication Ability: Effective Javascript Software Engineer Required: No Beliefs That Will Affect Care: None marital status: Single Current Living Situation: Alone Feels Safe at Home: Yes Assistive Devices: None Allergies Allergies Allergy/AdvReac Type Severity Reaction Status Date / Time lisinopril AdvReac Mild cough Verified 10/10/20 12:13 Home Meds Home Medications Medication Instructions Recorded Confirmed aspirin [Adult Aspirin Regimen] 81 mg PO QAM 10/09/20 10/10/20 Previous Rx's Medication Instructions Recorded sildenafil 100 mg tablet 100 mg PO DAILY PRN #10 tab 02/13/20 CPAP Machine #1 ea 04/10/20 celecoxib 200 mg capsule 200 mg PO QAM #90 cap 06/27/20 losartan 50 mg tablet 50 mg PO QAM #90 tab 08/28/20 Results & Data (ED) Vital Signs Vital Signs - 24 hr 10/10/20 10:44 10/10/20 11:21 10/10/20 13:00 Temperature 36.7 C Temperature Source Temporal Artery Scan Pulse Rate 63 Pulse Rate [Right Finger] 68 59 L Pulse Rhythm Regular Pulse Rhythm [Right Finger] Regular Regular Pulse Strength Normal Pulse Strength [Right Finger] Normal Normal Respiratory Rate 18 20 18 Respiratory Effort / Characteristics Non-Labored Spontaneous Non-Labored Spontaneous Non-Labored Spontaneous Respiratory Depth Normal Normal Normal Respiratory Pattern Regular Regular Blood Pressure 180/87 H Blood Pressure [Right Arm] 160/89 H 137/79 Blood Pressure Mean 118 Blood Pressure Mean [Right Arm] 112 98 Blood Pressure Position Sitting Blood Pressure Position [Right Arm] Lying Semi-fowlers Pulse Oximetry 99 97 94 Oxygen Delivery Method Room Air Room Air Room Air Sepsis Recent Fever Within 48 Hours No Sepsis New/Unexplained Change in Mental Status N/A Sepsis Action Taken by Nursing No Action Required 10/10/20 15:00 Temperature Temperature Source Pulse Rate Pulse Rate [Right Finger] 67 Pulse Rhythm Pulse Rhythm [Right Finger] Regular Pulse Strength Pulse Strength [Right Finger] Normal Respiratory Rate 16 Respiratory Effort / Characteristics Non-Labored Respiratory Depth Normal Respiratory Pattern Blood Pressure Blood Pressure [Right Arm] 152/87 H Blood Pressure Mean Blood Pressure Mean [Right Arm] 108 Blood Pressure Position Blood Pressure Position [Right Arm] Pulse Oximetry 90 Oxygen Delivery Method Room Air Sepsis Recent Fever Within 48 Hours Sepsis New/Unexplained Change in Mental Status Sepsis Action Taken by Nursing Laboratory Data Result diagrams: 10/10/20 11:22 10/10/20 11:22 Lab Results 10/10/20 10/10/20 10/10/20 Range/Units 11:22 11:22 13:31 WBC 7.40 (4.8-10.8) K/uL RBC 5.01 (4.7-6.1) M/uL Hgb 15.8 (14.0-18.0) g/dL Hct 44.0 (42-52) % MCV 87.8 (80-100) fL MCH 31.5 (25-34) pg MCHC 35.9 (32-36) g/dL RDW Std Deviation 43.5 (36.4-46.3) fL RDW Coeff of Ciro 13.5 (11.5-14.5) % Plt Count 208 (130-400) K/uL MPV 9.4 (7.4-10.4) fL Immature Gran % (Auto) 0.3 % Neut % (Auto) 58.7 % Lymph % (Auto) 29.3 % [place] % (Auto) 9.6 % Eos % (Auto) 1.8 % Baso % (Auto) 0.3 % Neut # (Auto) 4.35 (1.4-6.5) K/uL Lymph # (Auto) 2.17 (1.2-3.4) K/uL [place] # (Auto) 0.71 H (0.11-0.59) K/uL Eos # (Auto) 0.13 (0-0.5) K/uL Baso # (Auto) 0.02 (0-0.2) K/uL Immature Gran # (Auto) 0.02 (0.00-0.02) K/uL Sodium 137 (136-145) mmol/L Potassium 4.3 (3.5-5.1) mmol/L Chloride 108 H (98-107) mmol/L Carbon Dioxide 29 (21-32) mmol/L Anion Gap 1.0 L (3-11) BUN 17 (7-18) mg/dl Creatinine 1.14 (0.6-1.4) mg/dl Est Cr Clr Drug Dosing 77.7 ml/min Est GFR ( Amer) 77.8 Est GFR (Non-Af Amer) 67.1 BUN/Creatinine Ratio 14.6 (10-20) Glucose 97 (70-99) mg/dl Calcium 8.8 (8.5-10.1) mg/dl Total Bilirubin 0.3 (0.2-1) mg/dl AST 19 (15-37) U/L ALT 30 (12-78) U/L Alkaline Phosphatase 67 (45-117) U/L Troponin I < 0.015 (0-0.045) ng/ml Total Protein 6.8 (6.4-8.2) gm/dl Albumin 3.5 (3.4-5.0) gm/dl Globulin 3.3 (2.5-4.0) gm/dl Albumin/Globulin Ratio 1.1 (0.9-2) Lipase 132 (73-393) U/L COVID-19 Eval [address] CovFluRsv at [facility] SARS-CoV-2 (PCR) (Negative) Influenza Type A (PCR) (Neg) Influenza Type B (PCR) (Neg) RSV (RT-PCR) (Neg) 10/10/20 Range/Units 13:31 WBC (4.8-10.8) K/uL RBC (4.7-6.1) M/uL Hgb (14.0-18.0) g/dL Hct (42-52) % MCV (80-100) fL MCH (25-34) pg MCHC (32-36) g/dL RDW Std Deviation (36.4-46.3) fL RDW Coeff of Ciro (11.5-14.5) % Plt Count (130-400) K/uL MPV (7.4-10.4) fL Immature Gran % (Auto) % Neut % (Auto) % Lymph % (Auto) % [place] % (Auto) % Eos % (Auto) % Baso % (Auto) % Neut # (Auto) (1.4-6.5) K/uL Lymph # (Auto) (1.2-3.4) K/uL [place] # (Auto) (0.11-0.59) K/uL Eos # (Auto) (0-0.5) K/uL Baso # (Auto) (0-0.2) K/uL Immature Gran # (Auto) (0.00-0.02) K/uL Sodium (136-145) mmol/L Potassium (3.5-5.1) mmol/L Chloride (98-107) mmol/L Carbon Dioxide (21-32) mmol/L Anion Gap (3-11) BUN (7-18) mg/dl Creatinine (0.6-1.4) mg/dl Est Cr Clr Drug Dosing ml/min Est GFR ( Amer) Est GFR (Non-Af Amer) BUN/Creatinine Ratio (10-20) Glucose (70-99) mg/dl Calcium (8.5-10.1) mg/dl Total Bilirubin (0.2-1) mg/dl AST (15-37) U/L ALT (12-78) U/L Alkaline Phosphatase (45-117) U/L Troponin I (0-0.045) ng/ml Total Protein (6.4-8.2) gm/dl Albumin (3.4-5.0) gm/dl Globulin (2.5-4.0) gm/dl Albumin/Globulin Ratio (0.9-2) Lipase (73-393) U/L COVID-19 Eval Order SARS-CoV-2 (PCR) NEGATIVE (Negative) Influenza Type A (PCR) Negative (Neg) Influenza Type B (PCR) Negative (Neg) RSV (RT-PCR) Negative (Neg) Administered Medications Discontinued Medications Meclizine HCl (Meclizine Hcl 25 Mg Tab) 25 mg PO NOW STA Stop: 10/10/20 13:20 Last Admin: 10/10/20 13:27 Dose: 25 mg Documented by: [id number] Imaging Data Radiologist's Impression: Chest X-Ray 10/10/20 11:10 XR chest 1V portable CLINICAL HISTORY: Atypical chest pain COMPARISON STUDY: CT scan dated 10/09/2020 FINDINGS: The cardiac and mediastinal contours are normal. There is no evidence of focal pulmonary consolidation. There is no evidence of failure. No pleural effusions are visualized.[ IMPRESSION: No active disease in the chest. ACT 112: Negative or not required by law. Electronically signed by: Basil Arizmendi M.D. 10/10/2020 11:39 AM Discharge Plan Visit Data Chief Complaint: Syncope Stated Complaint: FEELS LIKE HE IS GOING TO PASS OUT ED Provider: Terrell Herrmann Discharge Problem: Near syncope, HTN (hypertension), High serum chloride Patient Disposition: Admitted As Inpatient Forms Stand Alone Forms: [facility] Prescriptions Prescriptions: No Action sildenafil 100 mg tablet 100 mg PO DAILY PRN (Reason: sexual activity) Qty: 10 RF: 5 celecoxib 200 mg capsule 200 mg PO QAM Qty: 90 RF: 1 losartan 50 mg tablet 50 mg PO QAM Qty: 90 RF: 1 (DME) CPAP Machine Misc See Rx Instructions .ROUTE .MEDSUPPLY Qty: 1 RF: 0 aspirin [Adult Aspirin Regimen] 81 mg tablet,delayed release (DR/EC) 81 mg PO QAM RF: 0 Referrals Referrals: Capo Ashford DO [Primary Care Provider] - Discharge Problem: HTN (hypertension) Qualifiers: Hypertension type: unspecified Qualified Code(s): I10 - Essential (primary) hypertension
[2020-10-10 11:36] LABS: Basophils # (auto) 0.02 K/uL (0-0.2); Basophils % (auto) 0.3 %; Eosinophils # (auto) 0.13 K/uL (0-0.5); Eosinophils % (auto) 1.8 %; Hemoglobin 15.8 g/dL (14.0-18.0); Immature Granulocytes # (auto) 0.02 K/uL (0.00-0.02); Immature Granulocytes % (auto) 0.3 %; Lymphocytes # (auto) 2.17 K/uL (1.2-3.4); Lymphocytes % (auto) 29.3 %; Mean Corpuscular Hemoglobin 31.5 pg (25-34); Mean Corpuscular Hgb Conc 35.9 g/dL (32-36); Mean Corpuscular Volume 87.8 fL (80-100); Mean Platelet Volume 9.4 fL (7.4-10.4); Monocytes # (auto) 0.71 K/uL (0.11-0.59); Monocytes % (auto) 9.6 %; Neutrophils # (auto) 4.35 K/uL (1.4-6.5); Neutrophils % (auto) 58.7 %; Platelet Count 208 K/uL (130-400); RDW Coefficient of Variation 13.5 % (11.5-14.5); RDW Standard Deviation 43.5 fL (36.4-46.3); Red Blood Count 5.01 M/uL (4.7-6.1)
--- NOTE | 2020-10-10 11:40 | XRay Report ---
XR chest 1V portable CLINICAL HISTORY: Atypical chest pain COMPARISON STUDY: CT scan dated 10/09/2020 FINDINGS: The cardiac and mediastinal contours are normal. There is no evidence of focal pulmonary co nsolidation. There is no evidence of failure. No pleural effusions are visualized.[ IMPRESSION: No active disease in the chest. ACT 112: Negative or not required by law. Electronically signed by: Basil Arizmendi M.D. 10/10/2020 11:39 AM
[2020-10-10 11:56] LABS: Alanine Aminotransferase 30 U/L (12-78); Albumin Level 3.5 gm/dl (3.4-5.0); Aspartate Aminotransferase 19 U/L (15-37); BUN Creatinine Ratio 14.6 (10-20); Blood Urea Nitrogen 17 mg/dl (7-18); Calcium 8.8 mg/dl (8.5-10.1); Carbon Dioxide 29 mmol/L (21-32); Chloride 108 mmol/L (98-107); Creatinine Clr Calc Pharmacy 77.7 ml/min; Est GFR (African American) 77.8; Est GFR (Non-African American) 67.1; Glucose 97 mg/dl (70-99); Lipase 132 U/L (73-393); Potassium 4.3 mmol/L (3.5-5.1); Sodium 137 mmol/L (136-145)
[2020-10-10 12:01] LABS: Albumin Globulin Ratio 1.1 (0.9-2); Alkaline Phosphatase 67 U/L (45-117); Bilirubin,Total 0.3 mg/dl (0.2-1); Globulin 3.3 gm/dl (2.5-4.0); Total Protein 6.8 gm/dl (6.4-8.2); Troponin I < 0.015 ng/ml (0-0.045)
[2020-10-10] MEDS ORDERED: MECLIZINE HCL 25 MG TAB PO STA (13:19)
[2020-10-10 14:26] LABS: Influenza A virus by PCR Negative (Neg); Influenza B virus by PCR Negative (Neg); RSV by PCR Negative (Neg); SARS CoV2 RNA(COVID-19) InHosp NEGATIVE (Negative)
--- NOTE | 2020-10-10 15:09 | History & Physical Report ---
Date of Service October 10, 2020 Assessment & Plan (1) Near syncope: Second ER visit in 2 days with nearly identical symptoms Patient with heart rate of 62 No prior history of heart disease, migraines, neural issues Electrolytes within normal ranges, No leukocytosis, Afebrile No acute illness or recent sick contacts Second Covid vaccination with Pfizer yesterday at 1600 Check urine with reflex culture as needed CTA negative yesterday CT head negative Check orthostatic pressures every shift Check MRI of brain without contrast Check echocardiogram Monitor on telemetry (2) Hypertension: Continue losartan 50 mg p.o. daily Patient allergy to lisinopril with cough Currently systolic blood pressure is 140. Would not treat this on the inpatient setting secondary to near syncope Follow on telemetry to make sure there is no hypotensive events or arrhythmias (3) Obstructive sleep apnea of adult: Continue CPAP at 11 cm of water HS and as desired by patient Patient can bring his own CPAP machine and if he desires Follows with Dr. Sullivan in the outpatient clinic (4) Acid reflux: No complaints of epigastric pain or discomfort Patient is not on an H2 rebecca or PPI at home We will prescribe as needed Maalox No indication for PPI or H2 rebecca while inpatient (5) DVT prophylaxis: Monitor patient on telemetry and ambulate as tolerated Heparin 5000 units SQ every 12 hours Please refer to Dr. Curtis's addendum for further recommendations and corrections History of Present Illness Primary Care Provider: Capo Ashford DO Attending: Dr. Curtis This is a 65-year-old male that presented to the emergency department yesterday for evaluation for weakness and near syncope. At that time he felt as though he was going to collapse and had to sit down. He describes a sensation of being woozy as though he was moving while trying to stay balanced. He was at the gym at that time and was doing cable pulls when he began to feel weak. He looked in the mirror and said that he looked pale. He denies any symptoms of the room moving which be associated with vertigo. He was offered work-up from a cardiac standpoint yesterday and requested that he do that as an outpatient. He was discharged from the emergency department and at 4:00 yesterday afternoon had a second Covid vaccination. He tolerated that well. He slept well and got up this morning went about his usual routine without difficulty. He went to work as usual and midmorning he noted that he had the same sensation of wooziness and lightheadedness as he did yesterday. Due to similar feelings he reported back to the emergency department for further evaluation. Blood pressure is stable at 140 systolically. Heart rate is in the 60s. He denies any chest pain or tightness. He has no difficulty with breathing. He denies any fever, chills, sweats, rigors. He had no night sweats last night. He had no nausea or vomiting. No diarrhea. No abdominal pain. No back pain. He denies any acute change in vision. He has no blurred vision. He has no diplopia. He denies any headache. He does describe an aura where he felt as though his head was strange just before he felt like he was going to faint. He has no history of migraines. He had no color changes in his vision. He describes no rings or halos. He is a non-smoker. He does not consume alcohol. He uses no illicit substances. Aside from the near syncope, he has no acute complaints at this time. Patient is not and has no children. Decision-maker is his brother. He does request level I full resuscitation but does not want to be on prolonged life support. Allergies Allergy/AdvReac Type Severity Reaction Status Date / Time lisinopril AdvReac Mild cough Verified 10/10/20 12:13 Home Medications Medication Instructions Recorded Confirmed Type sildenafil 100 mg tablet 100 mg PO DAILY PRN #10 tab 02/13/20 10/10/20 Rx CPAP Machine #1 ea 04/10/20 07/30/20 Rx celecoxib 200 mg capsule 200 mg PO QAM #90 cap 06/27/20 10/10/20 Rx losartan 50 mg tablet 50 mg PO QAM #90 tab 08/28/20 10/10/20 Rx aspirin [Adult Aspirin Regimen] 81 mg PO QAM 10/09/20 10/10/20 History Past Med/Surg History Medical History (Updated 10/10/20 @ 15:47 by Terrell Herrmann DO) Acid reflux Hypertension Infection, Shigella Sleep apnea cpap Surgical History History of appendectomy History of cataract surgery LEFT History of colonoscopy History of tonsillectomy History of tooth extraction S/P rotator cuff repair Family History Brother Family history of diabetes mellitus Hypertension Lymphoma Father Family history of diabetes mellitus Hypertension Mother Brain tumor Family/Other Cardiac disorder Grandfather (Paternal) Stroke Myocardial infarction Uncle Stroke Grandfather (Maternal) Myocardial infarction Denies family history of Ovarian cancer Prostate cancer Breast cancer Colorectal cancer Social History Smoking Status: Never smoker Second Hand Exposure: No; Hx Alcohol Use: No Hx Substance Use: No Preferred Language: Welsh Communication Ability: Effective Tooth Clerk Required: No Beliefs That Will Affect Care: None marital status: Single Current Living Situation: Alone Feels Safe at Home: Yes Safety Concerns: Feels Safe At This Time Assistive Devices: None Immunizations: Second Covid vaccination on 10/09/2020 at 1600 Review of Systems Review of Systems: All systems reviewed & are unremarkable except as noted in HPI & below Physical Exam Physical Exam: GENERAL : No acute distress. Patient appears well-developed and well-nourished. EYES: No icterus, gaze conjugate. Pupils equal round and reactive to light. NOSE: No evidence of epistaxis MOUTH: No lesions or candidiasis. No deviation of tongue. Mucosa moist. NECK: Supple LUNGS: CTA B/L, no wheezes, rales or rhonchi HEART: Regular, rate controlled ABDOMEN: Soft, NT, ND, BS Present EXTREMITIES: No LE edema, pedal pulses intact NEURO: A&OX3. No pronator drift. Strength equal and appropriate upper and lower extremities 4/4. No slurred speech. No facial droop. Tongue is midline. Gaze is conjugate. No slurred speech. No aphasia. Gait and Romberg are deferred Results & Data Results & Data ([facility]) Vital Signs (Past 12 Hours) Vital Signs Temp Pulse Pulse Resp BP BP Pulse Ox 10/10/20 13:00 59 L 18 137/79 94 10/10/20 11:21 68 20 160/89 H 97 10/10/20 10:44 36.7 C 63 18 180/87 H 99 Laboratory Results 10/10/20 11:22 10/10/20 11:22 10/10/20 11:22 Troponin I < 0.[address] CT DOSE: 614.27 mGy.cm HISTORY: near syncope TECHNIQUE: Multiaxial CT images of the head were performed without the use of intravenous contrast. Automated exposure control was utilized for this study. A dose lowering technique was utilized adhering to the principles of ALARA. Comparison: None. Findings: The paranasal sinuses and mastoid air cells are clear. The calvarium and skull base are intact. The ventricles and sulci are within normal limits. There is no mass, hematoma, midline shift, or acute infarct. Patchy subcutaneous areas of increased density within the occipital scalp may represent an age- indeterminate scalp contusion. Impression: No acute intracranial abnormality. Age-indeterminate posterior scalp injury. ACT 112: Negative or not required by law. Electronically signed by: Grayson Rene M.D. 10/09/2020 7:23 AM Code Status & VTE Plan Code Status Full resuscitation: Level I VTE Prophylaxis Plan VTE Prophylaxis will be ordered: Yes Supervising Physician Co-Signing Physician Notes I personally saw and examined the patient. I verified all linares points and agree with JAVIER Livingston with the following exceptions and/or additions: 65 year old male admission for dizziness. History consistent with presyncope rather than vertigo with lightheadedness and near syncopal event. No previous occurrence before yesterday. O/E alert and oriented times, HS1+2, no murmurs, chest CTAB, abdomen soft nontender A/P Presyncope - no need for MRI brain, monitor for arrhythmia on telemetry especially with any recurrence of his symptoms (consider outpatient cardiac event monitor if does not reoccur while here), agree with echocardiogram, orthostatics prior to discharge, labs do not suggest acutely dehydrated. Continue on his usual antihypertensives. Previous notes, imaging, EKG, labs reviewed. PG Care Time/CCT Total # of Minutes Spent Total Time Spent with Patient: Total time spent is greater than 50% in coordination of care (as documented) at patient's floor/unit and/or counseling patient: 45 minutes Coding Level of Care Code 79314 Initial Inpt Care Lvl 3 Diagnoses Near syncope R55 Hypertension I10 Hypertension type: unspecified Obstructive sleep apnea of adult G47.33 Acid reflux K21.9 DVT prophylaxis Z29.9 Time Spent (min) 45 (1) Hypertension Hypertension type: unspecified Qualified Code(s): I10 - Essential (primary) hypertension
--- NOTE | 2020-10-10 16:17 | Electrocardiogram Report ---
Test Reason : Blood Pressure : / mmHG Vent. Rate : 058 BPM Atrial Rate : 058 BPM P-R Int : 214 ms QRS Dur : 116 ms QT Int : 416 ms P-R-T Axes : 030 244 018 degrees QTc Int : 408 ms Sinus bradycardia with 1st degree A-V block Right superior axis deviation Abnormal ECG When compared with ECG of 09-OCT-2020 04:56, No significant change was found Confirmed by Anthony Potter ([id number]) on 10/10/2020 4:16:33 PM Referred By: REFERRED SELF Confirmed By:Anthony Potter
[2020-10-10] MEDS ORDERED: ONDANSETRON INJ 2 MG/ML 2 ML VIAL IV PRN (16:40)
[2020-10-10] MEDS ORDERED: ACETAMINOPHEN 325 MG TAB PO PRN (16:40)
[2020-10-10] MEDS ORDERED: ALUMINUM/MAGNESIUM SUSP 30 ML UDC PO PRN (16:40)
[2020-10-10] MEDS ORDERED: NITROGLYCERIN SL 0.4 MG/TAB TAB SL PRN (16:40)
[2020-10-10] MEDS ORDERED: NON-FORMULARY MEDICATION (Sildenafil 100 mg tablet) PO PRN (16:40)
[2020-10-10] MEDS ORDERED: POLYETHYLENE (MIRALAX) 17 GM PACK PO PRN (16:40)
[2020-10-10] MEDS ORDERED: MAGNESIUM HYDROXIDE SUSP 30 ML UDC PO PRN (16:40)
[2020-10-10] MEDS: SODIUM CHLORIDE 0.9% 1000ML 1,000 ML IV SCH (17:43)
[2020-10-10] MEDS: HEPARIN SOD 5,000 UNIT/0.5 ML VIAL SQ SCH (20:29)
[2020-10-10 21:14] LABS: Appearance Urine Clear (Clear); Bilirubin Urine Negative (Negative); Blood Urine Negative (Negative); Color Urine Yellow; Glucose Urine UA Negative (Negative); Ketones Urine Negative (Negative); Leukocyte Esterase Urine Negative (Negative); Nitrite Urine Negative (Negative); Protein Urine Negative (Negative); Specific Gravity Urine 1.009 (1.000-1.030); Urobilinogen Urine Negative (Negative)
[2020-10-11] MEDS: SODIUM CHLORIDE 0.9% 1000ML 1,000 ML IV SCH (05:42)
[2020-10-11 07:15] LABS: Basophils # (auto) 0.02 K/uL (0-0.2); Basophils % (auto) 0.3 %; Eosinophils # (auto) 0.18 K/uL (0-0.5); Eosinophils % (auto) 2.9 %; Hematocrit (blood only) 43.6 % (42-52); Hemoglobin 15.6 g/dL (14.0-18.0); Immature Granulocytes # (auto) 0.02 K/uL (0.00-0.02); Immature Granulocytes % (auto) 0.3 %; Lymphocytes # (auto) 1.86 K/uL (1.2-3.4); Lymphocytes % (auto) 29.5 %; Mean Corpuscular Hemoglobin 31.6 pg (25-34); Mean Corpuscular Hgb Conc 35.8 g/dL (32-36); Mean Corpuscular Volume 88.4 fL (80-100); Mean Platelet Volume 9.2 fL (7.4-10.4); Monocytes # (auto) 0.56 K/uL (0.11-0.59); Monocytes % (auto) 8.9 %; Neutrophils # (auto) 3.67 K/uL (1.4-6.5); Neutrophils % (auto) 58.1 %; Platelet Count 196 K/uL (130-400); RDW Coefficient of Variation 13.6 % (11.5-14.5); RDW Standard Deviation 44.3 fL (36.4-46.3); Red Blood Count 4.93 M/uL (4.7-6.1); White Blood Count 6.31 K/uL (4.8-10.8)
[2020-10-11 07:43] LABS: BUN Creatinine Ratio 15.2 (10-20); Calcium 8.7 mg/dl (8.5-10.1); Creatinine Clr Calc Pharmacy 77.8 ml/min; Est GFR (African American) 79.5; Est GFR (Non-African American) 68.6; Potassium 4.2 mmol/L (3.5-5.1)
[2020-10-11] MEDS: HEPARIN SOD 5,000 UNIT/0.5 ML VIAL SQ SCH (07:51)
--- NOTE | 2020-10-11 08:50 | Electrocardiogram Report ---
Test Reason : Blood Pressure : / mmHG Vent. Rate : 055 BPM Atrial Rate : 055 BPM P-R Int : 216 ms QRS Dur : 110 ms QT Int : 430 ms P-R-T Axes : 053 256 041 degrees QTc Int : 411 ms Sinus bradycardia with 1st degree A-V block Right superior axis deviation Pulmonary disease pattern Incomplete right bundle branch block Abnormal ECG When compared with ECG of 10-OCT-2020 11:32, No significant change Confirmed by Elio Verdugo ([id number]) on 10/11/2020 8:50:19 AM Referred By: REFERRED SELF Confirmed By:Elio Verdugo
[2020-10-11] MEDS ORDERED: ASPIRIN 81 MG ECTAB PO SCH (09:00)
[2020-10-11] MEDS ORDERED: LOSARTAN POTASSIUM 50 MG TAB PO SCH (09:00)
[2020-10-11] MEDS ORDERED: CeleBREX 200 MG CAP PO SCH (09:00)
--- NOTE | 2020-10-11 10:31 | Ultrasound Report ---
ULTRASOUND OF THE CAROTID ARTERIES CLINICAL HISTORY: syncope COMPARISON STUDY: None. TECHNIQUE: Real-time, grayscale, and color Doppler sonography of the carotid arteries was performed. Imaging reviewed in the transverse and longitudinal planes. NASCET criteria was utilized for stenosis calcification. FINDINGS: There is also moderate atherosclerotic plaque present . The peak systolic velocity within the right internal carotid artery is 102 cm/sec. The systolic velocity ratio of right internal to common carotid artery is 1.1. The peak systolic velocity within the left internal carotid artery is 103 cm/sec. The systolic velocity ratio left internal to common carotid artery is 20. Antegrade flow is seen in the vertebral arteries. The external carotid arteries are patent. Blood pressure in the right arm measured 149 mm/Hg. Blood pressure in the left arm measured 132 mm/H g. IMPRESSION: No evidence of hemodynamically significant carotid stenosis. ACT 112: Negative or not required by law. Electronically signed by: Basil Arizmendi M.D. 10/11/2020 10:30 AM
--- NOTE | 2020-10-11 10:35 | XCELERA ---
[id number]
[2020-10-11] MEDS ORDERED: OPTIRAY 320 125ml IV ONE (15:31)
--- NOTE | 2020-10-11 15:53 | CT Scan Report ---
CT ANGIOGRAPHY OF THE CHEST WITHOUT AND WITH IV CONTRAST CLINICAL HISTORY: recent near-syncope during exercise; r/o dissection CHEST PAIN COMPARISON STUDY: 10/09/2020 TECHNIQUE: Unenhanced images were obtained through the thorax. Following the IV administration of 117 mL of Optiray-320, CT of the angiography thorax was performed from the thoracic inlet to the lung ba ses. MIP images were acquired Images are reviewed in the axial, sagittal, and coronal planes. IV cont rast was administered without complication. A dose lowering technique was utilized adhering to the p rinciples of ALARA. CT DOSE: 1167.12 mGy.cm FINDINGS: Thyroid: Imaged portions of the thyroid gland are normal in appearance. Thoracic aorta: There is no evidence of acute thoracic aortic hematoma. There is no evidence of thora cic aortic dissection or aneurysm. Pulmonary vasculature: The pulmonary trunk is normal in caliber. There are no central filling defects identified to suggest pulmonary embolus. Note that this examination was not protocoled for the evalu ation of pulmonary emboli. HEART: The heart is normal in size and configuration, without pericardial effusion. Lungs and pleural spaces: There are no pleural effusions. There is dependent atelectasis. There is mi ld lower lobe bronchial wall thickening. Mediastinum: There is no evidence of pathologic mediastinal lymphadenopathy. Daria: There is no evidence of pathologic hilar lymphadenopathy. Axilla: There is no evidence of pathologic axillary adenopathy. Upper abdomen: There is a 19 mm left renal cyst Skeletal structures: There are no lytic or blastic osseous lesions. IMPRESSION: 1. No evidence of thoracic aortic aneurysm or dissection 2. No evidence of acute pulmonary embolism 3. Dependent atelectasis 4. Mild lower lobe bronchial wall thickening, similar to the prior study ACT 112: Negative or not required by law. Electronically signed by: Basil Arizmendi M.D. 10/11/2020 3:51 PM
--- NOTE | 2020-10-11 16:46 | Discharge Summary ---
Date of Service date of admission - October 10, 2020 date of discharge - October 11, 2020 Admission HPI Per Admitting Provider Attending: Dr. Curtis This is a 65-year-old male that presented to the emergency department yesterday for evaluation for weakness and near syncope. At that time he felt as though he was going to collapse and had to sit down. He describes a sensation of being woozy as though he was moving while trying to stay balanced. He was at the gym at that time and was doing cable pulls when he began to feel weak. He looked in the mirror and said that he looked pale. He denies any symptoms of the room moving which be associated with vertigo. He was offered work-up from a cardiac standpoint yesterday and requested that he do that as an outpatient. He was discharged from the emergency department and at 4:00 yesterday afternoon had a second Covid vaccination. He tolerated that well. He slept well and got up this morning went about his usual routine without difficulty. He went to work as usual and midmorning he noted that he had the same sensation of wooziness and lightheadedness as he did yesterday. Due to similar feelings he reported back to the emergency department for further evaluation. Blood pressure is stable at 140 systolically. Heart rate is in the 60s. He denies any chest pain or tightness. He has no difficulty with breathing. He denies any fever, chills, sweats, rigors. He had no night sweats last night. He had no nausea or vomiting. No diarrhea. No abdominal pain. No back pain. He denies any acute change in vision. He has no blurred vision. He has no diplopia. He denies any headache. He does describe an aura where he felt as though his head was strange just before he felt like he was going to faint. He has no history of migraines. He had no color changes in his vision. He describes no rings or halos. He is a non-smoker. He does not consume alcohol. He uses no illicit substances. Aside from the near syncope, he has no acute complaints at this time. Patient is not and has no children. Decision-maker is his brother. He does request level I full resuscitation but does not want to be on prolonged life support. Principal Diagnosis Near-syncope Discharge Exam Constitutional well developed and well nourished; no acute distress and no altered mental status ENMT external ear and nose normal, oropharynx normal Respiratory normal respiratory effort, lungs clear to auscultation Cardiovascular Rate/Rhythm: regular rate and regular rhythm Heart Sounds: normal S1 and normal S2; no murmur Vessels: posterior tibial pulses present, dorsalis pedis pulses present and radial pulses present; no JVD Extremities: no edema Gastrointestinal (Abdomen) normal bowel sounds, soft, nontender, no hepatosplenomegaly Musculoskeletal no cyanosis or clubbing, extremities motor strength 5/5 Neurologic moves all extremities; no focal motor deficits Psychiatric A+Ox3, euthymic affect Discharge Data Allergies Allergy/AdvReac Type Severity Reaction Status Date / Time lisinopril AdvReac Mild cough Verified 10/14/20 09:24 Ordered Studies 10/11/20 08:33 US carotid doppler BI Routine - no internal carotid artery stenosis. Antegrade flow in the vertebrals. 10/11/20 14:52 CT angio chest dissec wo/w con Urgent - IMPRESSION: 1. No evidence of thoracic aortic aneurysm or dissection 2. No evidence of acute pulmonary embolism 3. Dependent atelectasis 4. Mild lower lobe bronchial wall thickening, similar to the prior study Echocardiogram - * EF 55-60% * mild LVH * grade 1 diastolic dysfunction * normal valve function * normal wall motion Hospital Course (1) Near syncope: No evidence of ACS - troponins negative x 3. Telemetry was normal during his brief stay. Echocardiogram was normal. Carotid duplex study was normal. CTA chest dissection protocol NEGATIVE for PE or dissection. Labs unremarkable. Orthostatic BPs were normal. Vitals were otherwise stable/normal during his stay. It is possible that the cause of his near-syncope was neurocardiogenic in etiology (vasovagal physiology). I cannot fully exclude underlying arrhythmia as the cause of his events, however. He has scheduled follow-up with Dr Ras Delgadillo, [facility], on 10/13/2020 and additional testing can be discussed at that time. Patient was discharged home in stable condition and asked to avoid strenuous activities until he sees Dr Delgadillo. (2) Hypertension: Controlled during the visit with losartan. (3) Obstructive sleep apnea of adult: Continue CPAP [id number] as previous. (4) Acid reflux: Total Time Total Time Spent Total Time Spent (In Minutes): 40 Total Time Includes: Examination of the Patient, Discharge Planning, Medication Reconciliation and Communication With Other Providers Discharge Plan Discharge Items Patient Disposition: Home - Self-Care Reason For Visit: NEAR SYNCOPE Discharge Diagnosis: Near-Syncope (feeling severely faint / almost passing out). Heart attack, blood clots in the lungs, abnormal heart rhythm, carotid artery stenosis (plaque build-up in the arteries of the neck), aortic dissection and aneurysm - all ruled out. Blood work normal. EKGs normal. Suspect "vasovagal" episodes - additional testing may be needed, however. Please follow-up with Dr Ras Delgadillo in the cardiology office as scheduled. Activity: As commented below Activity Comment: light activites this weekend; please skip the gym Lifting: No more than 10 pounds Sexual Activity: Wait until after follow-up appointment Exercise/Sports: Wait until after follow-up appointment Exercise Comment: Avoid use of viagra until cleared by cardiology Driving/Machine Use: Resume 1 day after discharge Non-emergency contact: Primary Care Provider and Behavioral Medical Director Call non-emergency contact if: you have any medication questions and your symptoms worsen Follow-up/Referrals: Capo Ashford DO [Primary Care Provider] - Rome Delgadillo MD [Physician] - (see Dr Delgadillo as scheduled ) Diet: Heart Healthy Addtl Attending Provider Instructions: Mr Clarke, You were seen for 2 episodes of feeling dizzy/lightheaded/faint. One of the episodes was during a work-out at the gym. You underwent extensive testing as noted above in "discharge diagnoses." Dissection of the aorta, blood clots of the lungs, congestive heart failure, and heart attack were all ruled out. We also did not see any abnormal heart rhythm during your stay. Your symptoms may have been due to a "vagovagal" episode which is one of the most common causes of feeling faint or actually passing out. Please follow-up with Dr Ras Delgadillo, [facility], this coming week as scheduled for this issue. Light activities are permissible until seen by Dr Delgadillo. Please avoid the gym and heavy exercise work-outs until cleared by Dr Delgadillo. Return to [facility] if - * you have recurrent episodes of passing out or feel like you may pass out * you have chest pain * any other concerns Pending Studies at Discharge: No Stand-Alone Forms: My [facility] [employer] (FIG), Smoking Cessation Medications and DC Order Prescriptions: Continued celecoxib 200 mg capsule 200 mg PO QAM Qty: 90 RF: 1 losartan 50 mg tablet 50 mg PO QAM Qty: 90 RF: 1 (DME) CPAP Machine Misc See Rx Instructions .ROUTE .MEDSUPPLY Qty: 1 RF: 0 aspirin [Adult Aspirin Regimen] 81 mg tablet,delayed release (DR/EC) 81 mg PO QAM RF: 0 Discontinued sildenafil 100 mg tablet 100 mg PO DAILY PRN (Reason: sexual activity) Qty: 10 RF: 5 Discharge Orders: Discharge Order (Routine); Ordered 10/11/20 Ordered By: Raymond Arzola Admission Data Admit Date/Time: 10/10/20 14:55 Attending Provider: Raymond Arzola Admit Provider: Raymond Curtis Primary Care Provider: Capo Ashford Other Interventions: Discharge Summary Assessment (RN) Last Done: 10/11/20 14:49 Coding Level of Care Code 22703 OBS Care - Discharge Diagnoses Near syncope R55 Hypertension I10 Hypertension type: unspecified Obstructive sleep apnea of adult G47.33 Acid reflux K21.9
== END 2020-10-11 16:58 | disposition home or self-care (01) ==
LOC: 2N 10:41 → ED 10:41 → SUATTDRO 14:55 → 2N 16:06
DX: Z79.899 Other long term (current) drug therapy; R55 Syncope and collapse; Z88.8 Allergy status to other drugs, medicaments and biological substances; Z79.82 Long term (current) use of aspirin; I10 Essential (primary) hypertension; R79.89 Other specified abnormal findings of blood chemistry; J44.9 Chronic obstructive pulmonary disease, unspecified; G47.33 Obstructive sleep apnea (adult) (pediatric)

== ENCOUNTER 2023-12-24 06:37 | Inpatient (IN) ==
--- NOTE | 2023-12-24 07:09 | Emergency Department Note ---
Impression & Plan Fever, Heart block AV second degree, Right bundle branch block, Elevated troponin I level, Diarrhea, LUIS (acute kidney injury), Salmonella infection, Shigella enteritis ED Provider Note NAME: DAVID ANAND AGE: 68 SEX: M : 1955 ARRIVES VIA: Walk-In INFORMANT: Patient, the patient's brother ED PROVIDER(S): Anthony Walter DO CHIEF COMPLAINT: Fever HPI: The patient is a 68-year-old male who presented to the emergency department for an evaluation of febrile illness. The patient's had symptoms over the course of the last 4 to 5 days. He is also noticed some loose stools. He is also noticed muscle aches. He denies having any headache or neck stiffness. He denies having any abdominal pain or chest pain. The patient denies having any rectal bleeding. His brother does give part of the history and states that the patient has had the symptoms in the past with food poisoning because of bad lettuce. The patient has not been seen by his family doctor but came the emergency department this morning for further evaluation. ROS: See above HPI for pertinent positives & negatives. A total of 10 systems reviewed and were otherwise negative. PAST MEDICAL HISTORY: See Below PAST SURGICAL HISTORY: See Below FAMILY HISTORY: See Below SOCIAL HISTORY: See Below HOME MEDICATIONS: See Below ALLERGIES: See Below VITALS: See Below PHYSICAL EXAMINATION: GENERAL: Patient is awake alert in no acute distress patient is resting comfortably and showing no signs of anxiety EYES: The conjunctivae are clear. The pupils are round and reactive. EARS, NOSE, MOUTH AND THROAT: The nose is without any evidence of any deformity. Mucous membranes are dry. NECK: The neck is nontender and supple. RESPIRATORY: Normal respiratory effort is noted there is no evidence of wheezing rhonchi or rales CARDIOVASCULAR: Regular rate and rhythm noted there no murmurs rubs or gallops normal S1 normal S2. GASTROINTESTINAL: The abdomen is soft. Abdomen is nontender. MUSCULOSKELETAL/EXTREMITIES: There is no evidence of gross deformity full range of motion is noted in the hips and shoulders. SKIN: There is no obvious evidence of any rash. There are no petechiae, pallor or cyanosis noted. NEUROLOGIC: Patient is awake alert and oriented x3 strength is symmetric patellar reflexes are 2+ bilaterally MEDICAL DECISION MAKING: The patient is a 68-year-old male who presented to the emergency department for generalized bodyaches fever and diarrhea. The patient was treated with IV fluids in the emergency department. Discussed patient's laboratory and radiographic studies with him. While he is in the emergency department he was found to have changes to his previous EKG and also had episodes of second-degree heart block type II. For this reason the patient was felt to be a better candidate for inpatient management. I did discuss his condition with the on- call [facility] hospitalist. They have agreed to evaluate the patient in the emergency department for further management and disposition. Tickborne illness as well as stool studies are still pending. There is no definite source found and the patient was not given an antibiotic in the emergency department. Triage Nursing notes reviewed. Prior medical records reviewed Vital Signs: reviewed and remarkable for fever. Differential diagnosis: Viral syndrome, otitis, pharyngitis, pneumonia, influenza, meningitis, urinary tract infection, sepsis, bacteremia, as well as other pathologies. ER treatment provided: See below Diagnostics interpreted by me: ECG: EKG was obtained in the emergency department. My interpretation is sinus rhythm at 67 bpm. Frequent PVCs were noted, right bundle-branch block pattern was noted, this was compared to a tracing from November 07, 2020. The ectopy as well as the bundle branch block are new compared to the previous tracing. Cardiac Monitoring: An order was placed for continuous cardiac monitoring. The monitor shows a rate of 84 bpm with mostly sinus rhythm. Laboratory studies: As stated above and show below. Imaging studies: See below. Radiographic imaging was reviewed by myself Consultation(s): I discussed this case with Dr. Enriquez who [facility] Past Med/Surg History Problem List (Updated 12/24/23 @ 11:35 by Anthony Walter DO) Shigella enteritis (Acute) Salmonella infection (Acute) LUIS (acute kidney injury) (Acute) Elevated troponin I level (Acute) Right bundle branch block (Acute) Heart block AV second degree (Acute) Fever (Acute) Syncope Seizure-like activity Right knee DJD Rotator cuff tendinitis Hip weakness Left knee DJD Wrist sprain Wrist pain Pain in both feet Ventral hernia High serum chloride (Acute) HTN (hypertension) (Acute) Near syncope (Acute) Microscopic hematuria Fecal occult blood test positive Hematuria Diarrhea (Acute) Obstructive sleep apnea of adult (Chronic) Hypertension (Chronic) Encounter for pre-operative examination Osteoarthritis Acid reflux Medical History Abscess or cellulitis of scalp History of- 2017 MRSA hx of- followed with ID Generalized osteoarthritis of hand Idiopathic peripheral neuropathy Palpitations Hx of - has since resolved Hypertension Sleep apnea cpap Surgical History Ventral hernia (01/15/21) Open Incarcerated Ventral Hernia Repair with Ventralex Mesh Dr. Herring 01/15/2021 S/P rotator cuff repair History of cataract surgery LEFT and right History of tooth extraction History of tonsillectomy History of appendectomy History of colonoscopy Family History Brother Family history of diabetes mellitus Hypertension Lymphoma Father Family history of diabetes mellitus Hypertension Diabetes Mother Brain tumor Cancer Family/Other Cardiac disorder Grandfather (Paternal) Stroke Myocardial infarction Uncle Stroke Grandfather (Maternal) Myocardial infarction Grandfather Heart disease Grandmother Stroke Denies family history of Ovarian cancer Prostate cancer Breast cancer Colorectal cancer Social History Smoking Status: Never smoker Second Hand Exposure: No; Do You Dip or Chew Tobacco: No; Hx Alcohol Use: No Hx Substance Use: No Preferred Language: Yakut Communication Ability: Effective Visual Impairment: No Limitations Hearing Ability: Normal Management Information Systems Director Required: No Beliefs That Will Affect Care: None marital status: Single Current Living Situation: Alone current occupational status: retired How many Children do You have: 0 Feels Safe at Home: Yes Childhood Exposure to Second-Hand Smoke: No Diet: regular Diet Comment: regular caffeine: Yes during the past year weight has: remained stable Dental Care, Regularly: Yes Physical Activity Frequency: Daily Seatbelt Use: always Sunscreen Use: Yes Assistive Devices: Glasses Allergies Allergies Allergy/AdvReac Type Severity Reaction Status Date / Time lisinopril AdvReac Mild cough Verified 12/24/23 09:31 Home Meds Home Medications Medication Instructions Recorded Confirmed aspirin 81 mg tablet,delayed 81 mg PO QAM 10/09/20 12/24/23 release (Adult Aspirin Regimen) [id number]-lc-[id number] 300 mcg-K 60 1 tab PO DAILY 01/05/21 12/24/23 mcg-lycop 600 mcg-lutein 300 mcg tablet (Centrum Silver Men) carboxymethylcellulose sodium 1 % 1 drp ophthalmic (eye) BID PRN Dry 12/24/23 12/24/23 eye liquid gel drops Eyes emtricitabine 200 mg-tenofovir 1 tab PO DAILY 12/24/23 12/24/23 disoproxil fumarate 300 mg tablet Previous Rx's Medication Instructions Recorded CPAP Machine #1 ea 04/10/20 CPAP Supplies #1 ea 11/25/21 diclofenac sodium 1 % topical gel 2 g topical QID PRN pain, moderate 06/10/22 #100 grams sildenafil 100 mg tablet 100 mg PO DAILY PRN sexual 09/28/22 activity #10 tabs losartan 50 mg tablet 50 mg PO QAM #90 tabs 06/09/23 celecoxib 200 mg capsule 200 mg PO QAM Osteoarthritis of 09/20/23 hand #90 caps Results & Data (ED) Vital Signs Vital Signs - 24 hr 12/24/23 06:49 12/24/23 07:26 12/24/23 07:30 Temperature 38.4 C H Temperature Source Oral Pulse Rate 100 H 76 76 Pulse Rate from SpO2 Sensor Pulse Rhythm Regular Respiratory Rate 18 18 Respiratory Effort / Characteristics Non-Labored Spontaneous Respiratory Depth Normal Respiratory Pattern Regular Blood Pressure 141/78 H Blood Pressure Mean 99 Blood Pressure Position Sitting Pulse Oximetry 96 96 Oxygen Delivery Method Room Air Sepsis Recent Fever Within 48 Hours Yes Sepsis New/Unexplained Change in Mental Status N/A Sepsis Action Taken by Nursing No Action Required 12/24/23 07:33 12/24/23 08:03 12/24/23 08:28 Temperature 37.5 C Temperature Source Oral Pulse Rate 70 66 Pulse Rate from SpO2 Sensor 71 Pulse Rhythm Respiratory Rate 17 27 H Respiratory Effort / Characteristics Respiratory Depth Respiratory Pattern Blood Pressure 157/80 H 117/70 Blood Pressure Mean 105 85 Blood Pressure Position Pulse Oximetry 96 Oxygen Delivery Method Sepsis Recent Fever Within 48 Hours Sepsis New/Unexplained Change in Mental Status Sepsis Action Taken by Nursing 12/24/23 08:30 12/24/23 09:00 12/24/23 10:03 Temperature Temperature Source Pulse Rate 81 84 91 H Pulse Rate from SpO2 Sensor 80 89 91 H Pulse Rhythm Respiratory Rate 27 H 20 16 Respiratory Effort / Characteristics Respiratory Depth Respiratory Pattern Blood Pressure 123/66 110/68 134/69 Blood Pressure Mean 85 82 90 Blood Pressure Position Pulse Oximetry 95 95 95 Oxygen Delivery Method Sepsis Recent Fever Within 48 Hours Sepsis New/Unexplained Change in Mental Status Sepsis Action Taken by Nursing 12/24/23 11:00 Temperature Temperature Source Pulse Rate 84 Pulse Rate from SpO2 Sensor 76 Pulse Rhythm Respiratory Rate 16 Respiratory Effort / Characteristics Respiratory Depth Respiratory Pattern Blood Pressure 130/69 Blood Pressure Mean 89 Blood Pressure Position Pulse Oximetry 94 Oxygen Delivery Method Sepsis Recent Fever Within 48 Hours Sepsis New/Unexplained Change in Mental Status Sepsis Action Taken by Jail Medications Current Medication List: was personally reviewed by me Laboratory Data Attestation: I reviewed the patient's lab results. 12/24/23 07:25 12/24/23 07:25 Lab Results 12/24/23 12/24/23 12/24/23 Range/Units 07:25 07:35 09:25 WBC 6.95 (4.8-10.8) K/ul RBC 5.90 (4.70-6.10) M/uL Hgb 18.8 H (14.0-18.0) g/dl Hct 53.9 H (42.0-52.0) % MCV 91.4 (80.0-100.0) fL MCH 31.9 (25.0-34.0) pg MCHC 34.9 (32.0-36.0) g/dL RDW Std Deviation 45.0 (36.4-46.3) fL RDW Coeff of Ciro 13.3 (11.5-14.5) % Plt Count 178 (130-400) K/uL MPV 9.2 L (9.4-12.4) fL Immature Gran % (Auto) 0.1 % Neut % (Auto) 81.5 % Lymph % (Auto) 10.2 % [place] % (Auto) 7.8 % Eos % (Auto) 0.0 % Baso % (Auto) 0.4 % Neut # (Auto) 5.66 (1.40-6.50) K/uL Lymph # (Auto) 0.71 L (1.20-3.40) K/uL [place] # (Auto) 0.54 (0.11-0.59) K/uL Eos # (Auto) 0.00 (0.00-0.50) K/uL Baso # (Auto) 0.03 (0.00-0.20) K/uL Immature Gran # (Auto) 0.01 (0.01-0.20) K/uL Toxic Vacuolation 1+ Sodium 135 L (136-145) mmol/L Potassium 3.8 (3.5-5.1) mmol/L Chloride 101 (98-107) mmol/L Carbon Dioxide 25 (21-32) mmol/L Anion Gap 9 (3-11) BUN 19 (6-23) mg/dl Creatinine 1.67 H (0.6-1.4) mg/dl Est Cr Clr Drug Dosing 43.7 ml/min Est GFR ( Amer) 48.0 ml/min Est GFR (Non-Af Amer) 41.4 ml/min BUN/Creatinine Ratio 11.4 (10-20) Glucose 137 H (70-99(Fasting)) mg/dl Lactate 1.8 (0.4-2.0) mmol/L Calcium 9.5 (8.6-10.3) mg/dl Magnesium 2.1 (1.7-2.4) mg/dl Total Bilirubin 0.7 (0.2-1.0) mg/dl Direct Bilirubin 0.1 (0-0.2) mg/dl AST 20 (13-39) U/L ALT 18 (7-52) U/L Alkaline Phosphatase 61 (34-104) U/L Total Creatine Kinase 141 (30-223) U/L Troponin I High Sens 21.4 H 23.1 H (0-20) pg/ml C-Reactive Protein 14.40 H (0-0.5) mg/dl Total Protein 7.9 (6.0-8.3) gm/dl Albumin 4.4 (3.4-5.0) gm/dl Procalcitonin 0.37 (0-0.5) ng/ml Urine Color Urine Appearance (Clear) Urine pH (4.5-7.5) Ur Specific [place] (1.000-1.030) Urine Protein (Negative) Urine Glucose (UA) (Negative) Urine Ketones (Negative) Urine Blood (Negative) Urine Nitrite (Negative) Urine Bilirubin (Negative) Urine Urobilinogen (Negative) Ur Leukocyte Esterase (Negative) Urine WBC (Auto) (0-5) /hpf Urine RBC (Auto) (0-2) /hpf U Hyaline Cast (Auto) (0-2) /lpf U Epithel Cells (Auto) (0-2) /hpf Urine Bacteria (Auto) (None Seen) Urine Mucus (None Prsent) Stl C. cayetanensis PCR (NotDetected) Stool Rotavirus A PCR (NotDetected) Stl Adenov F 40/41 PCR (NotDetected) Stool Astrovirus (PCR) (NotDetected) Stool Campylobacter PCR (NotDetected) Stl C. diff Tox B Gene (Neg) Stool Cryptosporidium PCR (NotDetected) Stl E.coli Shiga Tox PCR (NotDetected) Stl Enterotoxigenic E PCR (NotDetected) Stool EPEC (PCR) (NotDetected) Stool EAEC (PCR) (NotDetected) Stl E. histolytica PCR (NotDetected) Stool Giardia Lamblia PCR (NotDetected) Stool Salmonella PCR (NotDetected) Stool Sapovirus (PCR) (NotDetected) Stl P. shigelloides PCR (NotDetected) Stl Shigella/EIEC PCR (NotDetected) St Y.enterocolitica PCR (NotDetected) Stool Vibrio (PCR) (NotDetected) Stl Vibrio cholerae PCR (NotDetected) Stl Norovirus GI/GII PCR (NotDetected) Adenovirus (PCR) Not Detected (NotDetected) Anaplasma Smear See Comment Babesia Smear See Comment B. pertussis DNA (PCR) Not Detected (NotDetected) B.parapertussis DNA PCR Not Detected (NotDetected) Lyme Disease Screen Negative (Negative) C. pneumoniae DNA (PCR) Not Detected (NotDetected) Coronavirus OC43 (PCR) Not Detected (NotDetected) Coronavirus HKU1 (PCR) Not Detected (NotDetected) Coronavirus 229E (PCR) Not Detected (NotDetected) SARS-CoV-2 (PCR) Not Detected (NotDetected) Coronavirus NL63 (PCR) Not Detected (NotDetected) Human Metapneumovir PCR Not Detected (NotDetected) Influenza Type A (PCR) Not Detected (NotDetected) Influenza Type B (PCR) Not Detected (NotDetected) M. pneumoniae (PCR) Not Detected (NotDetected) Parainfluenza 1 (PCR) Not Detected (NotDetected) Parainfluenza 2 (PCR) Not Detected (NotDetected) Parainfluenza 3 (PCR) Not Detected (NotDetected) Parainfluenza 4 (PCR) Not Detected (NotDetected) RSV (PCR) Not Detected (NotDetected) Entero/Rhino (PCR) Not Detected (NotDetected) 12/24/23 Range/Units 09:30 WBC (4.8-10.8) K/ul RBC (4.70-6.10) M/uL Hgb (14.0-18.0) g/dl Hct (42.0-52.0) % MCV (80.0-100.0) fL MCH (25.0-34.0) pg MCHC (32.0-36.0) g/dL RDW Std Deviation (36.4-46.3) fL RDW Coeff of Ciro (11.5-14.5) % Plt Count (130-400) K/uL MPV (9.4-12.4) fL Immature Gran % (Auto) % Neut % (Auto) % Lymph % (Auto) % [place] % (Auto) % Eos % (Auto) % Baso % (Auto) % Neut # (Auto) (1.40-6.50) K/uL Lymph # (Auto) (1.20-3.40) K/uL [place] # (Auto) (0.11-0.59) K/uL Eos # (Auto) (0.00-0.50) K/uL Baso # (Auto) (0.00-0.20) K/uL Immature Gran # (Auto) (0.01-0.20) K/uL Toxic Vacuolation Sodium (136-145) mmol/L Potassium (3.5-5.1) mmol/L Chloride (98-107) mmol/L Carbon Dioxide (21-32) mmol/L Anion Gap (3-11) BUN (6-23) mg/dl Creatinine (0.6-1.4) mg/dl Est Cr Clr Drug Dosing ml/min Est GFR ( Amer) ml/min Est GFR (Non-Af Amer) ml/min BUN/Creatinine Ratio (10-20) Glucose (70-99(Fasting)) mg/dl Lactate (0.4-2.0) mmol/L Calcium (8.6-10.3) mg/dl Magnesium (1.7-2.4) mg/dl Total Bilirubin (0.2-1.0) mg/dl Direct Bilirubin (0-0.2) mg/dl AST (13-39) U/L ALT (7-52) U/L Alkaline Phosphatase (34-104) U/L Total Creatine Kinase (30-223) U/L Troponin I High Sens (0-20) pg/ml C-Reactive Protein (0-0.5) mg/dl Total Protein (6.0-8.3) gm/dl Albumin (3.4-5.0) gm/dl Procalcitonin (0-0.5) ng/ml Urine Color Dark Yellow Urine Appearance Clear (Clear) Urine pH 5.5 (4.5-7.5) Ur Specific [place] 1.028 (1.000-1.030) Urine Protein 2+ H (Negative) Urine Glucose (UA) Negative (Negative) Urine Ketones Trace H (Negative) Urine Blood 1+ H (Negative) Urine Nitrite Negative (Negative) Urine Bilirubin Negative (Negative) Urine Urobilinogen Negative (Negative) Ur Leukocyte Esterase Negative (Negative) Urine WBC (Auto) 0-5 (0-5) /hpf Urine RBC (Auto) 3-5 H (0-2) /hpf U Hyaline Cast (Auto) 0-2 (0-2) /lpf U Epithel Cells (Auto) 0-2 (0-2) /hpf Urine Bacteria (Auto) None Seen (None Seen) Urine Mucus Present A (None Prsent) Stl C. cayetanensis PCR Not Detected (NotDetected) Stool Rotavirus A PCR Not Detected (NotDetected) Stl Adenov F 40/41 PCR Not Detected (NotDetected) Stool Astrovirus (PCR) Not Detected (NotDetected) Stool Campylobacter PCR Not Detected (NotDetected) Stl C. diff Tox B Gene Negative Cdiff Gene (Neg) Stool Cryptosporidium PCR Not Detected (NotDetected) Stl E.coli Shiga Tox PCR Not Detected (NotDetected) Stl Enterotoxigenic E PCR Not Detected (NotDetected) Stool EPEC (PCR) Not Detected (NotDetected) Stool EAEC (PCR) Not Detected (NotDetected) Stl E. histolytica PCR Not Detected (NotDetected) Stool Giardia Lamblia PCR Not Detected (NotDetected) Stool Salmonella PCR DETECTED A* (NotDetected) Stool Sapovirus (PCR) Not Detected (NotDetected) Stl P. shigelloides PCR Not Detected (NotDetected) Stl Shigella/EIEC PCR DETECTED A* (NotDetected) St Y.enterocolitica PCR Not Detected (NotDetected) Stool Vibrio (PCR) Not Detected (NotDetected) Stl Vibrio cholerae PCR Not Detected (NotDetected) Stl Norovirus GI/GII PCR Not Detected (NotDetected) Adenovirus (PCR) (NotDetected) Anaplasma Smear Babesia Smear B. pertussis DNA (PCR) (NotDetected) B.parapertussis DNA PCR (NotDetected) Lyme Disease Screen (Negative) C. pneumoniae DNA (PCR) (NotDetected) Coronavirus OC43 (PCR) (NotDetected) Coronavirus HKU1 (PCR) (NotDetected) Coronavirus 229E (PCR) (NotDetected) SARS-CoV-2 (PCR) (NotDetected) Coronavirus NL63 (PCR) (NotDetected) Human Metapneumovir PCR (NotDetected) Influenza Type A (PCR) (NotDetected) Influenza Type B (PCR) (NotDetected) M. pneumoniae (PCR) (NotDetected) Parainfluenza 1 (PCR) (NotDetected) Parainfluenza 2 (PCR) (NotDetected) Parainfluenza 3 (PCR) (NotDetected) Parainfluenza 4 (PCR) (NotDetected) RSV (PCR) (NotDetected) Entero/Rhino (PCR) (NotDetected) Administered Medications Discontinued Medications Acetaminophen (Acetaminophen 500 Mg Tab) 1,000 mg PO NOW STA Stop: 12/24/23 07:07 Last Admin: 12/24/23 07:32 Dose: 1,000 mg Documented By: GURU Sodium Chloride (Nss) 1,000 mls @ 999 mls/hr IV .Q1H1M ONE Stop: 12/24/23 08:06 Last Infusion: 12/24/23 08:29 Dose: Infused Documented By: Admin: 12/24/23 07:32 Dose: 999 mls/hr Documented By: GURU Imaging Data Attestation: I personally reviewed and interpreted this imaging study as follows: My Impression: 1 view chest x-ray was obtained in the emergency department. My interpretation is no free air or definite infiltrate, final report below Radiologist's Impression: Chest X-Ray 12/24/23 07:06 XR chest 1V portable HISTORY: 68 years-old Male Sepsis acute sepsis COMPARISON: 10/10/2020 TECHNIQUE: AP view of the chest FINDINGS: Cardiomediastinal and hilar silhouettes are within normal limits. The lungs are clear. No pneumothorax or pleural effusion. IMPRESSION: No acute process. ACT 112: Negative or not required by law. The above report was generated using voice recognition software. It may contain grammatical, syntax or spelling errors. Electronically signed by: John Montes M.D. 12/24/2023 8:05 AM Discharge Plan Visit Data Chief Complaint: Illness ED Provider: Anthony Walter Discharge Problem: Fever, Heart block AV second degree, Right bundle branch block, Elevated troponin I level, Diarrhea, LUIS (acute kidney injury), Salmonella infection, Shigella enteritis Patient Disposition: Being Evaluated by Hospitalist Forms Stand Alone Forms: My [facility] Prescriptions Prescriptions: No Action sildenafil 100 mg tablet 100 mg PO DAILY PRN (Reason: sexual activity) Qty: 10 5RF Rx Instructions: administer 30 minutes to 4 hours before activity losartan 50 mg tablet 50 mg PO QAM Qty: 90 1RF Hold Instructions: surplus celecoxib 200 mg capsule 200 mg PO QAM Qty: 90 1RF Hold Instructions: excess supply at home Centrum Silver Men 300-600-300 mcg tablet 1 tab PO DAILY (DME) CPAP Supplies Misc .Route Qty: 1 0RF Rx Instructions: CPAP supplies including tubing, mask, filters, and hoses, lifetime need, [facility] (DME) CPAP Machine Misc See Rx Instructions .ROUTE .MEDSUPPLY Qty: 1 0RF Rx Instructions: 10 cmH2O diclofenac sodium 1 % gel 2 g topical QID PRN (Reason: pain, moderate) Qty: 100 2RF aspirin [Adult Aspirin Regimen] 81 mg tablet,delayed release (DR/EC) 81 mg PO QAM carboxymethylcellulose sodium [Refresh] 1 % Drops, Liquid Gel 1 drp OPHTHALMIC (EYE) BID PRN (Reason: Dry Eyes) emtricitabine-tenofovir (TDF) 200-300 mg tablet 1 tab PO DAILY Referrals Referrals: Capo Ashford DO [Physician] - Discharge Problem: Fever Qualifiers: Fever type: unspecified Qualified Code(s): R50.9 - Fever, unspecified Diarrhea Qualifiers: Diarrhea type: unspecified type Qualified Code(s): R19.7 - Diarrhea, unspecified
[2023-12-24] MEDS: ACETAMINOPHEN 500 MG TAB PO STA (07:32)
[2023-12-24] MEDS: SODIUM CHLORIDE 0.9% 1,000 ML IV ONE (07:32)
[2023-12-24 07:45] LABS: Hematocrit (blood only) 53.9 % (42.0-52.0); Hemoglobin 18.8 g/dl (14.0-18.0); Mean Corpuscular Hemoglobin 31.9 pg (25.0-34.0); Mean Corpuscular Hgb Conc 34.9 g/dL (32.0-36.0); Mean Corpuscular Volume 91.4 fL (80.0-100.0); Mean Platelet Volume 9.2 fL (9.4-12.4); Platelet Count 178 K/uL (130-400); RDW Coefficient of Variation 13.3 % (11.5-14.5); White Blood Count 6.95 K/ul (4.8-10.8)
[2023-12-24 08:03] LABS: Basophils # (auto) 0.03 K/uL (0.00-0.20); Basophils % (auto) 0.4 %; Immature Granulocytes # (auto) 0.01 K/uL (0.01-0.20); Immature Granulocytes % (auto) 0.1 %; Lymphocytes # (auto) 0.71 K/uL (1.20-3.40); Lymphocytes % (auto) 10.2 %; Monocytes # (auto) 0.54 K/uL (0.11-0.59); Monocytes % (auto) 7.8 %; Neutrophils # (auto) 5.66 K/uL (1.40-6.50); Neutrophils % (auto) 81.5 %; Toxic Vacuolation 1+
--- NOTE | 2023-12-24 08:07 | XRay Report ---
XR chest 1V portable HISTORY: 68 years-old Male Sepsis acute sepsis COMPARISON: 10/10/2020 TECHNIQUE: AP view of the chest FINDINGS: Cardiomediastinal and hilar silhouettes are within normal limits. The lungs are clear. No pneumothora x or pleural effusion. IMPRESSION: No acute process. ACT 112: Negative or not required by law. The above report was generated using voice recognition software. It may contain grammatical, syntax o r spelling errors. Electronically signed by: John Montes M.D. 12/24/2023 8:05 AM
[2023-12-24 08:24] LABS: Albumin Level 4.4 gm/dl (3.4-5.0); BUN Creatinine Ratio 11.4 (10-20); Bilirubin Direct 0.1 mg/dl (0-0.2); Bilirubin,Total 0.7 mg/dl (0.2-1.0); Calcium 9.5 mg/dl (8.6-10.3); Creatinine Clr Calc Pharmacy 43.7 ml/min; Est GFR (Non-African American) 41.4 ml/min; Magnesium 2.1 mg/dl (1.7-2.4); Potassium 3.8 mmol/L (3.5-5.1); Total Protein 7.9 gm/dl (6.0-8.3)
[2023-12-24 08:31] LABS: Troponin I High Sensitivity 21.4 pg/ml (0-20)
[2023-12-24 08:54] LABS: Adenovirus PCR Not Detected (NotDetected); Bordetella parapertussis PCR Not Detected (NotDetected); Bordetella pertussis PCR Not Detected (NotDetected); Chlamydia pneumoniae PCR Not Detected (NotDetected); Coronavirus 229E PCR Not Detected (NotDetected); Coronavirus CoV-2 (COVID19)PCR Not Detected (NotDetected); Coronavirus HKU1 PCR Not Detected (NotDetected); Coronavirus NL63 PCR Not Detected (NotDetected); Coronavirus OC43PCR Not Detected (NotDetected); Human Metapneumovirus PCR Not Detected (NotDetected); Influenza A PCR Not Detected (NotDetected); Influenza B PCR Not Detected (NotDetected); Mycoplasma pneumoniae PCR Not Detected (NotDetected); Parainfluenza Virus 1 PCR Not Detected (NotDetected); Parainfluenza Virus 2 PCR Not Detected (NotDetected); Parainfluenza Virus 3 PCR Not Detected (NotDetected); Parainfluenza Virus 4 PCR Not Detected (NotDetected); Respiratory Syncytial VirusPCR Not Detected (NotDetected); Rhinovirus/Enterovirus PCR Not Detected (NotDetected)
[2023-12-24 09:55] LABS: Appearance Urine Clear (Clear); Bacteria Urine Automated None Seen (None Seen); Bilirubin Urine Negative (Negative); Blood Urine 1+ (Negative); Cast Urine Automated 0-2 /lpf (0-2); Color Urine Dark Yellow; Epithelial Cell Urine Auto 0-2 /hpf (0-2); Glucose Urine UA Negative (Negative); Ketones Urine Trace (Negative); Leukocyte Esterase Urine Negative (Negative); Mucus Urine Present (None Prsent); Nitrite Urine Negative (Negative); Protein Urine 2+ (Negative); Specific Gravity Urine 1.028 (1.000-1.030); Urobilinogen Urine Negative (Negative); WBC Urine Automated 0-5 /hpf (0-5); pH Urine 5.5 (4.5-7.5)
[2023-12-24] MEDS ORDERED: ALUMINUM/MAGNESIUM SUSP 30 ML UDC PO PRN (10:00)
[2023-12-24] MEDS ORDERED: NITROGLYCERIN SL 0.4 MG/TAB TAB SL PRN (10:00)
--- NOTE | 2023-12-24 10:21 | History & Physical Report ---
Date of Service December 24, 2023 Assessment & Plan (1) LUIS (acute kidney injury): Plan 68-year-old gentleman is admitted and is being managed for the following: Likely viral illness Sepsis POA: Likely secondary to above, heart rate and temperature elevated at presentation. Patient reports having generalized bodyaches and weakness followed by sore throat and diarrhea since last few days. Respiratory pathogen panel negative, WBC WNL, procalcitonin WNL, patient febrile at 38.4 C at presentation with heart rate of 100 Of note, patient denies nausea, vomiting, abdominal pain. Patient reports diarrhea and poor appetite. Admitting CXR with no acute finding. Stool studies pending, follow admitting blood culture, labs in AM. Rule out tickborne etiology versus bacterial. Tickborne serology sent, follow. Monitor off antibiotic, Tylenol as needed for fever, IV fluids. Acute kidney injury: Baseline creatinine of 1.2, admitting creatinine of 1.67, likely prerenal secondary to dehydration from acute illness/poor appetite, status post IV fluid in the ED, continue with maintenance IV fluid, labs in AM. US renal to rule out obstructive pathology. Likely demand ischemia [secondary to acute illness]/ Mobitz type II heart block: Noted in telemetry, patient with no complaint of chest pain/palpitation/lightheadedness/syncope.Get TSH, follow tickborne serology. patient denies any new skin rash/recent tick bite. Telemetry monitoring. New diagnosis/not noted in outpatient chart review. Get echo, avoid CCB and beta- blockers, cardiology consult. Monitor replete electrolytes. Trend troponin. Other chronic medical conditions: RICHARD on CPAP/HTN/preventative therapy with Truvada-continue with/resume home meds as and when able. DVT prophylaxis: Heparin subcu DNI/DNI. History of Present Illness Chief Complaint: Generalized weakness, diarrhea Primary Care Provider: Keerthi Cano DO 68-year-old male with PMH of RICHARD on CPAP, Truvada as preventative therapy, HTN, migraine on prn meclizine per pt, open-angle glaucoma presented to the ED with complaint of feeling not well/generalized body aches/intermittent fever [ patient states moderate fever], progressive weakness/had hard time moving around, could not sleep since Tuesday. Patient reports having sore throat and diarrhea starting from . Reports headache on and off. Denies nausea and vomiting, reports decreased appetite. Patient denies cough/chest pa in/palpitation/belly pain. Patient denies pain or burning while passing urine. Patient declines smoking/alcohol/recreational drug use. Medications were reviewed with the patient Plan of care was discussed with the patient in detail. He was understanding and was agreeable. DNR/DNI as per my discussion with the patient. Allergies Allergy/AdvReac Type Severity Reaction Status Date / Time lisinopril AdvReac Mild cough Verified 12/24/23 09:31 Home Medications Medication Instructions Recorded Confirmed Type CPAP Machine #1 ea 04/10/20 07/18/23 Rx aspirin 81 mg tablet,delayed 81 mg PO QAM 10/09/20 12/24/23 History release (Adult Aspirin Regimen) iokglrpz-df-ylerq 300 mcg-K 60 1 tab PO DAILY 01/05/21 12/24/23 History mcg-lycop 600 mcg-lutein 300 mcg tablet (Centrum Silver Men) CPAP Supplies #1 ea 11/25/21 07/18/23 Rx diclofenac sodium 1 % topical gel 2 g topical QID PRN pain, moderate 06/10/22 12/24/23 Rx #100 grams sildenafil 100 mg tablet 100 mg PO DAILY PRN sexual 09/28/22 12/24/23 Rx activity #10 tabs losartan 50 mg tablet 50 mg PO QAM #90 tabs 06/09/23 12/24/23 Rx celecoxib 200 mg capsule 200 mg PO QAM Osteoarthritis of 09/20/23 12/24/23 Rx hand #90 caps carboxymethylcellulose sodium 1 % 1 drp ophthalmic (eye) BID PRN Dry 12/24/23 12/24/23 History eye liquid gel drops Eyes emtricitabine 200 mg-tenofovir 1 tab PO DAILY 12/24/23 12/24/23 History disoproxil fumarate 300 mg tablet Past Med/Surg History Problem List (Updated 12/24/23 @ 09:20 by Anthony Walter DO) LUIS (acute kidney injury) (Acute) Elevated troponin I level (Acute) Right bundle branch block (Acute) Heart block AV second degree (Acute) Fever (Acute) Syncope Seizure-like activity Right knee DJD Rotator cuff tendinitis Hip weakness Left knee DJD Wrist sprain Wrist pain Pain in both feet Ventral hernia High serum chloride (Acute) HTN (hypertension) (Acute) Near syncope (Acute) Microscopic hematuria Fecal occult blood test positive Hematuria Diarrhea (Acute) Obstructive sleep apnea of adult (Chronic) Hypertension (Chronic) Encounter for pre-operative examination Osteoarthritis Acid reflux Medical History Abscess or cellulitis of scalp History of- 2017 MRSA hx of- followed with ID Generalized osteoarthritis of hand Idiopathic peripheral neuropathy Palpitations Hx of - has since resolved Hypertension Sleep apnea cpap Surgical History Ventral hernia (01/15/21) Open Incarcerated Ventral Hernia Repair with Ventralex Mesh Dr. Herring 01/15/2021 S/P rotator cuff repair History of cataract surgery LEFT and right History of tooth extraction History of tonsillectomy History of appendectomy History of colonoscopy Family History Brother Family history of diabetes mellitus Hypertension Lymphoma Father Family history of diabetes mellitus Hypertension Diabetes Mother Brain tumor Cancer Family/Other Cardiac disorder Grandfather (Paternal) Stroke Myocardial infarction Uncle Stroke Grandfather (Maternal) Myocardial infarction Grandfather Heart disease Grandmother Stroke Denies family history of Ovarian cancer Prostate cancer Breast cancer Colorectal cancer Social History Smoking Status: Never smoker Second Hand Exposure: No; Do You Dip or Chew Tobacco: No; Hx Alcohol Use: No Hx Substance Use: No Preferred Language: Citizen Of [place] Communication Ability: Effective Visual Impairment: No Limitations Hearing Ability: Normal Hydrometeorology Teacher Required: No Beliefs That Will Affect Care: None marital status: Single Current Living Situation: Alone current occupational status: retired How many Children do You have: 0 Feels Safe at Home: Yes Childhood Exposure to Second-Hand Smoke: No Diet: regular Diet Comment: regular caffeine: Yes during the past year weight has: remained stable Dental Care, Regularly: Yes Physical Activity Frequency: Daily Seatbelt Use: always Sunscreen Use: Yes Assistive Devices: Glasses Review of Systems Review of Systems: Negative otherwise mentioned in HPI. Physical Exam Physical Exam: GENERAL: Alert and oriented x3. NAD, on RA. HEENT: No pallor, no icterus. Pupils equal, round and reactive to light. Oral mucosa moist. NECK: No JVD, no neck masses. HEART: S1 and S2 heard. Regular rate and rhythm. No murmur, no gallop. RESPIRATORY SYSTEM: Normal AP diameter. No accessory muscle use. No wheezing, no crackles. ABDOMEN: Soft, bowel sounds present, nontender, no distention. CENTRAL NERVOUS SYSTEM: No facial droop. Speech is clear. Obeys simple commands. Moves extremities. EXTREMITIES: No edema, no erythema seen. Results & Data Results & Data Vital Signs (Past 12 Hours) Vital Signs Temp Pulse Resp BP Pulse Ox O2 Del Method 12/24/23 09:00 84 20 110/68 95 12/24/23 08:30 81 27 H 123/66 95 12/24/23 08:28 37.5 C 12/24/23 08:03 66 27 H 117/70 96 12/24/23 07:33 70 17 157/80 H 12/24/23 07:30 76 18 96 Room Air 12/24/23 07:26 76 12/24/23 06:49 38.4 C H 100 H 18 141/78 H 96
[2023-12-24 11:05] LABS: Adenovirus F 40/41 PCR Not Detected (NotDetected); Astrovirus PCR Not Detected (NotDetected); Campylobacter PCR Not Detected (NotDetected); Cryptosporidium PCR Not Detected (NotDetected); Cyclospora cayetanensis PCR Not Detected (NotDetected); Entamoeba histolytica PCR Not Detected (NotDetected); Enteroaggregative E.coli(EAEC) Not Detected (NotDetected); Enteropathogenic E.coli (EPEC) Not Detected (NotDetected); Enterotoxigenic E.coli (ETEC) Not Detected (NotDetected); Giardia lamblia PCR Not Detected (NotDetected); Norovirus GI/GII PCR Not Detected (NotDetected); Plesiomonas shigelloides PCR Not Detected (NotDetected); Rotavirus A PCR Not Detected (NotDetected); Sapovirus PCR Not Detected (NotDetected); Shiga-like Toxin E.coli (STEC) Not Detected (NotDetected); Vibrio cholerae PCR Not Detected (NotDetected); Vibrio species PCR Not Detected (NotDetected); Yersinia enterocolitica PCR Not Detected (NotDetected)
[2023-12-24 11:24] LABS: Salmonella PCR DETECTED (NotDetected); Shigella/Enteroinvasive E.coli DETECTED (NotDetected)
[2023-12-24 11:48] LABS: Thyroid Stimulating Hormone 0.226 uIu/ml (0.300-4.500)
[2023-12-24] MEDS: CIPROFLOXACIN 500 MG TAB PO STA (11:48)
[2023-12-24] MEDS: ACETAMINOPHEN 325 MG TAB PO PRN (11:48)
--- NOTE | 2023-12-24 12:28 | Ultrasound Report ---
RENAL ULTRASOUND HISTORY: Acute kidney injury w/u mary anne COMPARISON: CT abdomen and pelvis 05/20/2019. FINDINGS: Right kidney: 11.8 cm. Exophytic cyst of the inferior pole measures 2.8 x 2.3 x 3.0 cm, 2.5 cm on the prior exam. No solid renal mass lesion is identified. No hydronephrosis. Normal corticomedullary dif ferentiation and cortical thickness. Left kidney: 12.9 cm. 2.0 x 1.6 x 2.4 cm cyst of the superior pole, previously 1.6 cm. No solid renal mass lesion is identified. No hydronephrosis. Normal corticomedullary differentiation and cortical t hickness. Bladder: No bladder wall thickening. The bilateral ureteral jets were identified. Prostatomegaly. IMPRESSION: No renal calculi or hydronephrosis identified by ultrasound. ACT 112: Negative or not required by law. Electronically signed by: John Montes M.D. 12/24/2023 12:26 PM
[2023-12-24 12:30] LABS: T4 Free Thyroxine 0.82 ng/dl (0.61-1.60)
[2023-12-24] MEDS ORDERED: CIPROFLOXACIN 500 MG TAB PO SCH (12:30)
[2023-12-24] MEDS: SODIUM CHLORIDE 0.9% 1,000 ML IV SCH (13:25)
--- OUTSIDE RECORDS SUMMARY | 2023-12-24 15:55 | External Medical Summary | Summary of Care ---
Author Name Unknown Organization [facility] Address [address] [place] [address] Phone [phone] Care Team Providers Care Office Bookkeeper Name Role Phone Keerthi Cano DO Primary Care Provider Reason for Visit * Reason Comments Mohs Surgery Pt presents today fo r Mohs surgery on right nose. Pt denies discomfort at this time * Evaluate & Treat - Unlimited Visits (Within 30 days (routine)) - Closed Specialty Diagnoses / Procedures Referred By Francisco t Referred To Contact Dermatology Diagnoses Basal cell carcinoma of skin of nose Teagan Jaramlilo PA-C [address] [place] [address] Referral ID Status Reason Start Date Expiration Date V isits Requested Visits Authorized [id number] Closed Specialty Services Required 08/10/2023 1 1 Encounter Details Date Type Department Care Team (Late st Contact Info) Description 11/09/2023 8:00 AM EDT Office Visit MOHS Surgery [facility] [address] [place] [address] Lillie Solitario MD [address] [place] [address] Basal cell carcinoma of skin of nose [C44.311]* Allergies Active Allergy Reactions Criticality Noted Date Comments Lisinopril Cough 05/23/2019 documented as of this encounter (statuses as of 11/22/2023) Medications Medication Sig Dispensed Refills Start Date End Date Status Aspirin 81 MG Tablet Take 1 Tablet by mouth in the morning. 0 Active Respiratory Therapy Supplies ERIC Use as directed at bedtime. BiPAP 0 Active Ammonium Lactate 12 % External Cream (Lac-Hydrin) apply to the bottoms of feet daily 280 g 3 01/19/2023 Active Losartan Potassium 50 MG Oral Tablet (Cozaar) take 1 tablet by mouth daily in the morning 90 Tablet 1 06/09/2023 Active Emtricitabine-Ten ofovir DF 200-300 MG Oral Tablet (Truvada) Take 1 Tablet by mouth in the morning. 0 07/02/2023 Active Centrum Silver 50+Men Oral Tablet Take 1 Tablet by mouth in the morning. 0 Active Systane 0.4-0.3 % Ophthalmic Solution (Artificial Tears) Instill 1 Drop into both eyes 2 times a day as needed for Dry eyes. 0 Active Sildenafil Citrate 100 MG Oral Tablet Take 1 Tablet by mouth as needed for Erectile Dysfunction. 10 Tablet 1 08/15/2023 Active Meclizine HCl 25 MG Oral Tablet (Antivert)Indicat ions:Vestibular migraine Take 1 Tablet by mouth 3 times a day as needed for Other (vestibular migraine). 30 Tablet 0 09/02/2023 Active Celecoxib 200 MG Oral Capsule (CeleBREX) TAKE 1 CAP (200 mg) BY MOUTH daily in the morning for Osteoarthritis of hand 90 Capsule 1 09/20/2023 Active documented as of this encounter (statuses as of 11/22/2023) Active Problems Problem Noted Date Diagnosed Date Open-angle glaucoma 08/01/2023 Open-angle glaucoma 08/01/2023 Shigella infection 05/24/2019 Essential hypertension with goal blood pressure less than 140/90 05/23/2019 Disorder of ejaculation 05/23/2019 Obstructive sleep apnea syndrome 05/23/2019 Herpes labialis 05/23/2019 Colitis, acute 05/23/2019 documented as of this encounter (statuses as of 11/22/2023) Immunizations Name Administration Dates Next Due COVID-19 mRNA, LNP-s, No Pre serve, 2-Dose Series (ServiceTitan) 10/09/2020,09/18/2020 Pneumococcal Conjugate Vaccine, 20-valent (Prevn ar20) 09/02/2023 Seasonal Influenza, PF, 6 M & above, IM , (FluLaval or Fluzone) 05/24/2019 TDAP (age 11 and older)(Adacel) 11/23/2021 Zoster Vaccine Recombinant (Shingrix) 03/18/2020 ,01/09/2020 documented as of this encounter Social History Tobacco Use Types Packs/Day Years Used Date Smoking Tobacco: Never Smokeless Tobacco: Never Alcohol Use Standard Drinks/Week Comments Not Currently 0 (1 standard drink = 0.6 oz pur e alcohol) Hunger Vital Sign Answer Date Recorded Within the past 12 months, y ou worried that your food would run out before you got the money to buy more. Never true 07/29/19 24 Within the past 12 months, t he food you bought just didn't last and you didn't have money to get more. Never true 07/29/2023 Sex and Gender Information Value Date Recorded Sex Assigned at Male 08/05/2023 7:10 AM EST Gender Identity Male 08/05/2023 7:10 AM EST Sexual Orientation [place] 08/05/2023 7: 10 AM EST Job Start Date Occupation Industry Not on file Not on file Not on file documented as of this encounter Last Filed Vital Signs Vital Sign Reading Time Taken Comments Blood Pressure - - Pulse - - Temperature 36.7 C (98.1 F) 11/09/2023 7:56 AM ED T Respiratory Rate - - Oxygen Saturation - - Inhaled Oxygen Concentration - - Weight 89.8 kg (198 lb) 11/09/2023 7:56 AM EDT Height - - Body Mass Index 28.41 09/02/2023 3:59 PM EST documented in this encounter Functional Status Functional Status Response Date of Assess ment Are you deaf or do you have serious difficulty h earing? No 05/23/2019 Are you blind or do you have serious difficulty seeing, even when wearing glasses? No 05/23/2019 Do you have serious difficul ty walking or climbing stairs? (5 years old or older) No 05/23/2019 Do you have difficulty dress ing or bathing? (5 years old or older) No 05/23/2019 Because of a physical, menta l, or emotional condition, do you have difficulty doing errands alone such as visiting a doctor s office or shopping? (15 years old or older) No 05/23/20 19 Cognitive Status Response Date of Assessm ent Because of a physical, menta l, or emotional condition, do you have serious difficulty concentrating, remembering, or making decisions? (5 years old or older) No 05/23/2019 documented as of this encounter Progress Notes * Lillie Solitario MD - 11/09/2023 8:00 AM EDT August Mohs Surgery Note (See separate transcribed operative note for further detail) History: Abdi Clarke is a 68 year old patient seen at the request of Teagan Jaramillo PA-C forevaluation and management of the following lesion: B. Skin, right nose, shave: Basal cell carcinoma, at least nodular type Patient problem list reviewed. Patient medication/allergy lists reviewed. Examination: Abdi Clarke is alert, oriented and appears well and in no distress. The patient's skin is remarkable for: Right nose (right alar crease): 5 mm x 5 mm pink thin papule Impression/Plan: Basal cell carcinoma - right nose (right alar crease) MMS Standard Mohs micrographic technique was utilized to treat this tumor. Microscopic examination of the specimen allowed the Mohs surgeon, whose dual role is to function as both surgeon and pathologist, to precisely identify the location of any remaining tumor or ascertain that the tissue margins were free of tumor. This process of excision of remaining tumor, mapping, and histologic exam was repeated until the tumor was excised completely. Patient identified, procedure verified, site identified and verified with the patient. Time out completed. Surgical removal of the lesion discussed with the patient (risks and benefits, including possibility of scarring, infection, bleeding, recurrence or potential for further treatment). I have specifically identified the site with the patient. I have discussed the fact that the patient will have a scar after the procedure regardless of granulation or repair with sutures. I have discussed that the repair options can range from granulation in some cases to linear or curvilinear closures to larger flaps or grafts. There is a risk of injury to nerves causing temporary or permanent numbness. Questions answered and verbal and written consent was obtained. 2 stage(s) Anesthetic: 0.05% lidocaine with 1:100,000 epinephrine. Repair: Purse-string (see separate operative report for details) Absorbable sutures Wound care was discussed verbally, demonstrated and printed wound instructions given as well as wound care supplies. Patient instructed to call with questions or concerns. Personal contact information provided. Follow-up: 2 months Lillie Solitario MD Associate, Mohs Micrographic Surgery & Dermatologic Surgery documented in this encounter Procedure Notes * Lillie Solitario MD - 11/14/2023 2:00 PM EDT CLINIC NOTES [facility] [place] [address] MOHS MICROGRAPHIC SURGERY Abdi Clarke [facility] [place]# [id number] 11/09/2023 MOHS NUMBER: [id number] BIOPSY: [id number] OPERATION: SURGICAL EXCISION OF CUTANEOUS MALIGNANCY USING CONTINUOUS MICROSCOPIC CONTROL(MOHS MICROGRAPHIC SURGERY) DIAGNOSIS: nodular basal cell carcinoma LOCATION: right nose INDICATION FOR MOHS SURGERY: Location SURGEON: Lillie Solitario M.D. TOWER ERECTOR HELPER SURGEON: NONE TOWER ERECTOR HELPER SURGEON: NONE ANESTHETIC: Buffered lidocaine 0.5% with epinephrine 1:200,000 SEWING MACHINE ATTACHMENT TESTER: Lillie Solitario M.D. PREOPERATIVE SIZE OF LESION: 0.5 x 0.5 cm POSTOPERATIVE SIZE OF DEFECT: 0.9 x 0.8 cm ESTIMATED BLOOD LOSS: 5CC PROCEDURE: Time out called. Patient identified. Procedure matches verbalized consent. Site identified and verified and confirmed immediately prior to the procedure. Site marked. Thin layers of tumor-containing tissue were excised at each stage of surgery. These were cut into smaller tissue sections which were examined microscopically in a systematic fashion. Examination of the entire base and superficial peripheral margin allowed microscopic tumor extensions to be located and mapped. In accordance with the Mohs technique, this procedure enabled the maximum amount of normal tissue to be preserved while achieving the highest cure rate for cutaneous malignancy. At each surgical stage, the patient was prepped, the proposed excision outlined on the skin, and the area was reanesthetized as needed. STAGE I: The patient was prepped and the area of surgery was outlined. The operative site was anesthetized with a local injection of buffered lidocaine 0.5% with epinephrine 1:200,000. Following this the clinically apparent portion of the tumor was surgically removed. Hemostasis was achieved with an electrosurgical device. A thin layer of tissue was surgically excised and hemostasis was obtained. A reference map was drawn and the excised tissue was cut into 4 sections for examination in the micrographic laboratory. Edges of each section were dyed in order to achieve precise orientation. Horizontal sectioning of the base and continuous peripheral margins were then carried out and the prepared microscopic sections were examined by Lillie Solitario M.D.. Any areas of residual nodular basal cell carcinoma were indicated on the reference map, pinpointing the location in which further tissue excision was necessary. STAGE II: The patient was returned to the surgery room and prepped in the manner described above. Surgery was directed to the areas of the epidermis and dermis having residual nodular basal cell carcinoma with thin layers of tissue being excised from these regions. Hemostasis was achieved and excised tissue was prepared, as described above, for microscopic analysis. 2 sections were prepared and indicated on a new reference map in order to maintain precise orientation. The microscopic sections were then examined by Lillie Solitario M.D.. Any areas of residual nodular basal cell carcinoma were indicated on the reference map, pinpointing the location in which further tissue excision was necessary. At this point, no further tumor cells were identified and the tumor eradication was considered to be complete for a total of 2 stages of surgery in which multiple microscopic slices of 6 tissue sections had been examined. WOUND MANAGEMENT: This wound was repaired with a purse-string suture. After sterilely preparing, anesthetizing and draping the surgical site, the wound was closed partially with a deep dermal-subcutaneous suture. This technique was chosen to decrease sizeof the surgical defect, provide a more desirable cosmetic result and decrease time to epithelialization. Total volume of Buffered lidocaine 0.5% with epinephrine 1:200,000, for Mohs Surgery and reconstruction was 8 ml. The final closure was 0.9 cm. in length. Subcutaneous closure material: Purse string 4-0 Vicryl Cutaneous closure material: None Lillie Solitario M.D. Associate Department of Dermatology documented in this encounter Nursing Notes * Kandis PascualAMY - 11/09/2023 8:11 AM EDT Chief Complaint Patient presents with Mohs Surgery Pt presents today for Mohs surgery on right nose. Pt denies discomfort at this time Referral Doctor: EDGAR Jaramillo Hypertension History: Yes, refer to medication information for treatment. Diabetes History: No Thyroid History: No Bleeding Tendency: No Artificial Valve or Joint: No Pacemaker: no Defibrillator: no Hepatitis/HIV Exposure: No Smoking: no Consent signed yes documented in this encounter Miscellaneous Notes * Letters - Lillie Solitario MD - 11/14/2023 2:00 PM EDT Department of Dermatology [address] [place], [place] [address] [place] [address] Lillie Solitario M.D. Associate Dermatologic Surgery November 14, 2023 Teagan Jaramillo PA-C [address] [place] [address] Abdi Clarke [id number] MOHS CASE: [id number] DX: nodular basal cell carcinoma Dear Referring Provider, Thank you for referring Abdi Clarek for treatment of nodular basal cell carcinoma of the right nose. The lesion was treated with Mohs micrographic surgery, and required 2 stages for complete removal. The surgical defect was repaired with combination of purse-string and directional guiding sutures. Yours trulyLillie M.D. documented in this encounter Plan of Treatment Upcoming Encounters Date Type Department Care Team (Latest Contact Info) Description 01/05/2024 2:20 PM EDT Office Visit Family Practice [address] [place] [address], [place] 293 [place] [address] Keerthi Cano DO [facility] [address] 01/17/2024 1:15 PM EDT Office Visit [facility] [place] [address] [facility] [address] Lillie Solitario MD 200 [facility] [place] [address] 02/10/2024 9:00 AM EDT Office Visit Dermatology, [place] [address] [place] [address] Teagan Jaramillo PA-C [address] [place] [address] 03/06/2024 9:30 AM EDT Hospital Encounter [facility]O [facility], Endoscopy Room [facility] [address] [place] [id number] Kirsten Schwartz DO [address] [place] [address] 03/06/2024 9:30 AM EDT - 03/06/2024 10:00 AM EDT Surgery ENDO [facility], Endoscopy Room [facility] [address] [place] [phone] Kirsten Schwartz DO [address] [place] [address] COLONOSCOPY FLEXIBLE PROXIMAL DIAGNOSTIC Scheduled Procedures Name Priority Associated Diagnoses Date/Ti me COLONOSCOPY FLEXIBLE PROXIMAL DIAGNOSTIC Special screening for malignant neoplasms, colon 03/06/2024 9:30 AM EDT Scheduled Referrals Name Type Priority Associated Diagnoses Orde r Schedule MOHS SURGERY REFERRAL OP Referral Within 30 days (routine) Basal cell carcinoma of skin of nose Ordered: 08/10/2023 Health Maintenance Due Date Last Done Comments Depression Screening 1967 Albumin/Creatinine Ratio 1973 Cologuard 2000 Colonoscopy 2000 Colorectal Cancer Screening 2000 Fecal Occult Blood Test 2000 Sigmoidoscopy 2000 GFR 02/03/2023 02/03/2022, 05/24/2019, 05/23/2019 COVID-19 Vaccine (2022- 4 season) 2023 10/09/2020, 09/18/2020 Influenza Vaccine (FLU shot) (Season Ended) 2024 05/24/2019 Diabetes Screening 02/03/2025 02/03/2022, 05/24/2019, 05/23/2019 Lipid Panel 02/03/2027 02/03/2022 DTaP,Tdap,and Td Vaccines (2 - Td or Tdap) 11/24/2031 11/23/2021 Zoster Vaccines Completed 03/18/2020, 01/09/2020 Pneumococcal Vaccine: 65+ Years Completed 09/02/2023 GARDASIL-HPV IMMUNIZATION SERIES Aged Out No longer eligible b ased on patient's age to complete this topic Hepatitis B Aged Out No longer eligi ble based on patient's age to complete this topic MENINGOCOCCAL (MENACTRA/MENVEO) Aged Out No longer eligible b ased on patient's age to complete this topic documented as of this encounter Medical Devices Not on filedocumented as of this encounter Visit Diagnoses Diagnosis Basal cell carcinoma of skin of nose [C44.311]- Primary Basal cell carcinoma of skin of other and unspecified parts of face Special screening for malignant neoplasms, colon documented in this encounter Advance Directives Latest Code Status on File Code Status Date Activated Date Inactivated Comments No Code 05/23/2019 5:16 PM 05/24/2019 9:25 PM Thi s order reflects the patients wishes and were consensually agreed upon. Care Teams Office Bookkeeper Relationship Specialty Start Date End Date Keerthi Cano DO [address] [place] [address] PCP - General Family Medicine 07/29/23 documented as of this encounter
--- OUTSIDE RECORDS SUMMARY | 2023-12-24 15:55 | External Medical Summary | Summary of Care ---
Author Name Unknown Organization [facility] Address [address] [place] [address] Phone [phone] Care Team Providers Care Public Health Assistant Name Role Phone Keerthi Cano DO Primary Care Provider Reason for Referral * Evaluate & Treat - Unlimited Visits (Within 10 days (routine)) - Authorized Specialty Diagnoses / Procedures Referred By Contact Referred To Contact Cardiovascular Medicine / Cardiology Diagnoses Near syncope Keerthi Cano DO [address] [place] [address] Referral ID Status Reason Start Date Expiration Date Visits Requested Visits Authorized [id number] Authorized Specialty Services Required 08/23/[phone] Question Answer Referral Priority Within 10 days (routine) Where should this appointment be scheduled? August To which of the following clinics are you referring your patient? General Cardiology Clinic Reason for Visit * Reason Onset Date Comments Test Results 08/23/202308/23 Encounter Details Date Type Department Care Team (Late st Contact Info) Description 08/23/2023 Telephone Family Practice [address], [place] [address] [place] [phone] Keerthi Cano DO [address] [place] [address] Test Results (08/23) Allergies Active Allergy Reactions Criticality Noted Date Comments Lisinopril Cough 05/23/2019 documented as of this encounter (statuses as of 08/23/2023) Medications Medication Sig Dispensed Refills Start Date End Date Status Aspirin 81 MG Tablet Take 1 Tablet by mouth in the morning. 0 Active Respiratory Therapy Supplies ERIC Use as directed at bedtime. BiPAP 0 Active Ammonium Lactate 12 % External Cream (Lac-Hydrin) apply to the bottoms of feet daily 280 g 3 01/19/2023 Active Celecoxib 200 MG Oral Capsule (CeleBREX) 200 mg orally daily in the morning for Osteoarthritis of hand 90 Capsule 1 02/08/2023 Active Losartan Potassium 50 MG Oral Tablet (Cozaar) take 1 tablet by mouth daily in the morning 90 Tablet 1 06/09/2023 Active Emtricitabine-Ten ofovir DF 200-300 MG Oral Tablet (Truvada) Take 1 Tablet by mouth in the morning. 0 07/02/2023 Active Diclofenac Sodium 1 % External Gel (Voltaren) Apply topically to affected area. Apply to knees as needed 0 Active Centrum Silver 50+Men Oral Tablet Take 1 Tablet by mouth in the morning. 0 Active Systane 0.4-0.3 % Ophthalmic Solution (Artificial Tears) Instill 1 Drop into both eyes 2 times a day as needed for Dry eyes. 0 Active Sildenafil Citrate 100 MG Oral Tablet Take 1 Tablet by mouth as needed for Erectile Dysfunction. 10 Tablet 1 08/15/2023 Active documented as of this encounter (statuses as of 08/23/2023) Active Problems Problem Noted Date Diagnosed Date Open-angle glaucoma 08/01/2023 Open-angle glaucoma 08/01/2023 Shigella infection 05/24/2019 Essential hypertension with goal blood pressure less than 140/90 05/23/2019 Disorder of ejaculation 05/23/2019 Obstructive sleep apnea syndrome 05/23/2019 Herpes labialis 05/23/2019 Colitis, acute 05/23/2019 documented as of this encounter (statuses as of 08/23/2023) Immunizations Name Administration Dates Next Due COVID-19 mRNA, LNP-s, No Pre serve, 2-Dose Series (Spacious) 10/09/2020,09/18/2020 Seasonal Influenza, PF, 6 M & above, [...] on file documented as of this encounter Functional Status Functional Status Response [...] No 05/23/2019 documented as of this encounter Miscellaneous Notes * Telephone Encounter - Ashlee Duran OSA - 08/23/2023 9:46 AM EST Left message on machine to call and schedule appt with Cardiology * Telephone Encounter - Vale Berman LPN - 08/23/2023 9:34 AM EST Patient is aware and will comply. Please call and schedule Thank you * Telephone Encounter - Keerthi Cano DO - 08/23/2023 9:21 AM EST Please let pt know: His monitor showed some conduction delay in his heart. I am doubtful with the type that it is, it is a contributor to his symptoms. The times he triggered the ZIO were related to a sinus rhythm or normal heart rate. I will have him get a second opinion from our project facilitator but I do not think that there is anything that is an overall contributor to his symptoms. Keep appt for MRI. documented in this encounter Plan of Treatment Upcoming Encounters Date Type Department Care Team (Late st Contact Info) Description 08/26/2023 11:15 AM EST Imaging Radiology [facility] [address] [place] [address] 08/30/2023 11:30 AM EST Office Visit [facility] [address] [facility] [address] Josefina Casey PA-C [address] [place] [address] [place] [address] 09/02/2023 4:00 PM EST Office Visit Family Practice [address] [facility], [place] 293 [facility], [place] [phone] Keerthi Cano DO 293 [facility], [place] [address] 11/09/2023 8:00 AM EDT Office Visit MOHS Surgery [facility] [address] [place] [address] Lillie Solitario MD 200 [place] [address] 02/10/2024 9:00 AM EDT Office Visit Dermatology, [place] [address] [place] [address] Teagan Jaramillo PA-C [address] [place] [address] Scheduled Referrals Name Type Priority Associated Diagnoses Orde r Schedule CARDIOLOGY REFERRAL OP Referral Within 10 days (routine) Near syncope Ordered: 08/23/2023 Health Maintenance Due Date Last Done Comments Depression Screening 1967 Albumin/Creatinine Ratio 1973 Cologuard 2000 Colonoscopy 2000 Colorectal Cancer Screening 2000 Fecal Occult Blood Test 2000 Sigmoidoscopy 2000 Pneumococcal Vaccine: 65+ Years (1 - PCV) 2020 GFR 02/03/2023 02/03/2022, 05/24/2019, 05/23/2019 COVID-19 Vaccine (3 - 2022-2 4 season) 2023 10/09/2020, 09/18/2020 Influenza Vaccine (FLU shot) (#1) 2023 05/24/2019 Diabetes Screening 02/03/2025 02/03/2022, 05/24/2019, 05/23/2019 Lipid Panel 02/03/2027 02/03/2022 DTaP,Tdap,and Td Vaccines (2 - Td or Tdap) 11/24/2031 11/23/2021 Zoster Vaccines Completed 03/18/2020, 01/09/2020 GARDASIL-HPV IMMUNIZATION SERIES Aged Out No longer [...] as of this encounter Visit Diagnoses Diagnosis Near syncope- Primary Syncope and collapse documented in this encounter Advance Directives Latest Code Status on File Code Status Date Activated Date Inactivated Comments No Code 05/23/2019 5:16 PM 05/24/2019 9:25 PM Thi s order reflects the patients wishes and were consensually agreed upon. Care Teams Public Health Assistant Relationship Specialty Start Date End Date Keerthi aCno DO [address] [place] [address] PCP - General Family Medicine 07/29/23 documented as of this encounter
--- OUTSIDE RECORDS SUMMARY | 2023-12-24 15:55 | External Medical Summary | Summary of Care ---
Author Name Unknown Organization [facility] Address [address] [place] [address] Phone [phone] Care Team Providers Care Farmer Vegetable Name Role Phone Keerthi Cano DO Primary Care Provider Reason for Referral * Ancillary Services (Within 30 days (routine)) - Authorized Specialty Diagnoses / Procedures Referred By Contac t Referred To Contact Gastroenterology Diagnoses Special screening for malignant neoplasms, colon Keerthi Cano DO [address] [place] [address] Referral ID Status Reason Start Date Expiration Date Visits Requested Visits Authorized [id number] Authorized Ancillary Services Required 09/02/[phone] Question Answer Referral Priority Within 30 days (routine) Where should this appointment be scheduled? [facility] ALERT: Do not order for pediatric patients (18 years or younger). Cancel off screen and order PEDS GASTROENTEROLOGY CONSULT (Type: 1 visit only-Evaluate and Treat) The following Pt. Instructions are available: - Gastro Colonoscopy Prep Instructions [[id number]] - Gastro Colonoscopy Prep Instructions (Romanian Version) [[id number]] Go to the Pt. Instructions section within the Visit Navigator to access. Colonoscopy ASGE Guidelines: Average risk screening (begin at age 50, 10 year intervals) ADDITIONAL INFORMATION 1. Is the patient on Coumadin? No 2. Is the patient on Pradaxa? No Reason for Visit * Reason Comments Follow Up Encounter Details Date Type Department Care Team ([facility] st Contact Info) Description 09/02/2023 4:00 PM EST Office Visit Family Practice [address], [place] [address] [place] [phone] Keerthi Cano DO [address] [place] [address] Vestibular migraine*; Need for pneumococcal vaccination; Special screening for malignant neoplasms, colon Allergies Active Allergy Reactions Criticality Noted Date Comments Lisinopril Cough 05/23/2019 documented as of this encounter (statuses as of 09/05/2023) Medications Medication Sig Dispensed Refills Start Date [...] (vestibular migraine). 30 Tablet 0 09/02/2023 Active documented as of this encounter (statuses as of 09/05/2023) Active Problems Problem Noted Date Diagnosed Date Open-angle glaucoma 08/01/2023 Open-angle glaucoma 08/01/2023 Shigella infection 05/24/2019 Essential hypertension with goal blood pressure less than 140/90 05/23/2019 Disorder of ejaculation 05/23/2019 Obstructive sleep apnea syndrome 05/23/2019 Herpes labialis 05/23/2019 Colitis, acute 05/23/2019 documented as of this encounter (statuses as of 09/05/2023) Immunizations Name Administration Dates Next Due COVID-19 mRNA, LNP-s, No Pre serve, 2-Dose Series (Pfizer) 10/09/2020,09/18/2020 Pneumococcal Conjugate Vaccine, 20-valent (Prevn ar20) 09/02/2023 Seasonal Influenza, PF, 6 M & above, IM , (FluLaval or Fluzone) 05/24/2019 TDAP (age 11 and older)(Adacel) 11/23/2021 Zoster Vaccine Recombinant (Shingrix) 03/18/2020 ,01/09/2020 documented as of this encounter Social History Tobacco Use Types Packs/Day Years Used Date Smoking Tobacco: Never Smokeless Tobacco: Never Tobacco Cessation:Counseling Given: Yes Alcohol Use Standard Drinks/Week Comments Not Currently [...] Sign Reading Time Taken Comments Blood Pressure 114/64 09/02/2023 3:59 PM EST Pulse 76 09/02/2023 3:59 PM EST Temperature 36.4 C (97.5 F) 09/02/2023 3:59 PM ES T Respiratory Rate 12 09/02/2023 3:59 PM EST Oxygen Saturation 97% 09/02/2023 3:59 PM EST Inhaled Oxygen Concentration - - Weight 89.9 kg (198 lb 4.8 oz) 09/02/2023 3:59 P M EST Height 177.8 cm (5' 10") 09/02/2023 3:59 PM EST Body Mass Index 28.45 09/02/2023 3:59 PM EST documented in this [...] No 05/23/2019 documented as of this encounter Patient Instructions * Patient Instructions* Yu Arora LPN - 09/02/2023 3:57 PM EST Images from the original note were not included. Colorectal Cancer Screening Colorectal cancer (cancer in the colon or rectum) is a leading cause of cancer deaths in the [place] But it doesnt have to be. When this cancer is found and removed early, the chances of a full recovery are very good. Because colorectal cancer rarely causes symptoms in its early stages, screening for the disease is important. Its even more crucial if you have risk factors for the disease. Learn more about colorectal cancer and its risk factors. Then talk to your healthcare provider about being screened. You could be saving your own life. Risk factors for colorectal cancer Your risk of having colorectal cancer increases if you: Are 50 years of age or older Have a family history or personal history of colorectal cancer or polyps Have a personal history of type 2 diabetes, Crohns disease, or ulcerative colitis Have an inherited genetic syndrome like Oquendo syndrome (also known as HNPCC) or familial adenomatous polyposis (FAP) Are very overweight Are not physically active Smoke Drink a lot of alcohol Eat a lot of red or processed meat The colon and rectum Waste from food you eat enters the colon from the small intestine. As it travels through the colon,the waste (stool) loses water and becomes more solid. Intestinal muscles push it toward the sigmoid--the last section of the colon. Stool then moves into the rectum, where its stored until its ready to leave the body during a bowel movement. How cancer develops Polyps are growths that form on the inner lining of the colon or rectum. Most are benign, which means they arent cancerous. But over time, some polyps can become cancer (malignant). This happens when cells in these polyps begin growing abnormally. In time, malignant cells invade more and more ofthe colon and rectum. The cancer may also spread to nearby organs or lymph nodes or to other parts of the body. Finding and removing polyps can help prevent cancer from ever forming. Your screening Screening means looking for a health problem before you have symptoms. During screening for colorectal cancer, your healthcare provider will ask about your health history, examine you, and do one or more tests. History and exam The history and exam involve the following: Health history. Your healthcare provider will ask about your health history. Mention if a family member has had colon cancer or polyps. Also mention any health problems you have had in the past. Digital rectal exam (GEM). During a GEM, the healthcare provider inserts a lubricated gloved fingerinto the rectum. The test is painless and takes less than a minute. Healthcare providers agree thatthis test alone is not enough to screen for colorectal cancer. Screening test choices: Fecal occult blood test (FOBT) or fecal immunochemical test (FIT) These tests check for occult blood in stool (blood you cant see). Hidden blood may be a sign of colon polyps or cancer. A small sample of stool is tested for blood in a laboratory. Most often, youcollect this sample at home using a kit your healthcare provider gives you. Follow the instructionscarefully for using this kit. You might need to avoid certain foods and medicines before the test, as directed. Barium enema with contrast (double-contrast barium enema) This test uses X-rays to provide images of the entire colon and rectum. The day before this test, you will need to do a bowel prep to clean out the colon and rectum. A bowel prep is a liquid diet plus strong laxatives or enemas. You will be awake for the test, but you may be given medicine to help you relax. At the start of the test, a radiologist (a healthcare provider who specializes in imagingtests) places a soft tube into the rectum. The tube is used to fill the colon with a contrast liquid (barium) and air. This can be uncomfortable for some people. The liquid helps the colon show up clearly on the X-rays. Because the test uses X-rays, it exposes you to a small amount of radiation. Virtual colonoscopy This exam is also called a CT colonography. It uses a series of X-ray photographs to create a 3-D view of the colon and rectum. The day before the test, you will need to do a bowel prep to clean out your colon. Your healthcare provider will give you instructions on how to do this. During the procedure, you will lie on a table that is part of a special X-ray machine called a CT scanner. A small tube will be placed into your rectum to fill the colon and rectum with air. This can be uncomfortable for some people. Then, the table will move into the machine and pictures will be taken of your colonand rectum. A computer will combine these photos to create a 3-D picture. Because the test uses X-rays, it exposes you to a small amount of radiation. Cologuard Cologuard is an easy to use, noninvasive colon cancer screening test that you can use in the privacy of your own home. It identifies altered DNA and/or blood in stool, which are associated with the possibility of colon cancer or precancer. DNA is continuously shed from cells in the intestinal lining, where it is passed into the stool. Ifcancer or precancer is present, abnormal cells will shed into the colon and stool along with normalcells. A molecular biology process is used to capture specific pieces of DNA for further analysis. Scope exams Here are two types of scope exams: Colonoscopy. This test can be used to find and remove polyps anywhere in the colon or rectum. The day before the test, you will do a bowel prep. This is a liquid diet plus a strong laxative solution or an enema. The bowel prep will cleanse your colon. You will be given instructions for this. Just before the test, you are given a medicine to make you sleepy. Then, a long, flexible, lighted tube called a colonoscope is gently inserted into the rectum and guided through the entire colon. Images ofthe colon are viewed on a video screen. Any polyps that are found are removed and sent to a lab fortesting. If a polyp cant be removed, a sample of tissue is taken and the polyp might be removed l ater during surgery. You will need to bring someone with you to drive you home after this test. Sigmoidoscopy. This test is similar to colonoscopy, but focuses only on the sigmoid colon and rectum. As with colonoscopy, bowel prep must be done the day before this test. It might not need to be ascomplete as the bowel prep for a colonoscopy. You are awake during the procedure, but you may be given medicine to help you relax. During the test, the healthcare provider guides a thin, flexible, lighted tube called a sigmoidoscope through your rectum and lower colon. The images are displayed on avideo screen. Polyps are removed, if possible, and sent to a lab for testing. Colonoscopy is the only screening test that lets your healthcare provider see the entire colon and rectum. This test also lets your healthcare provider remove any pieces of tissue that need to be looked at by a lab. If something suspicious is found using any other tests, you will likely need a colonoscopy. When to call your healthcare provider after a test Call your healthcare provider if you have any of the following after any screening test: Bleeding Fever of 100.4F (38C) or higher, or as directed by your healthcare provider Abdominal pain Vomiting Date Last Reviewed: 05/14/201519997798-9406 The [employer]. [address] [place] [address]. All rights reserved. This information is not intended as a substitute for professional medical care. Always follow your healthcare professional's instructions. ~~PATIENT INSTRUCTIONS FOR PNEUMOCOCCAL VACCINE~~ Possible side effects of pneumococcal vaccine, (pneumonia shot), are usually mild and can include: 1. Soreness or redness at injection site 2. Low grade fever 3. Body aches You may use Tylenol/Acetaminophen as needed for these symptoms. LET YOUR DOCTOR KNOW IMMEDIATELY IF YOU HAVE DIFFICULTY BREATHING OR SWALLOWING, EXPERIENCE ITCHINGOF FEET OR HANDS, HAVE SWELLING OF EYES, FACE OR INSIDE OF NOSE. documented in this encounter Progress Notes * Vale Cooper RN - 09/05/2023 1:55 PM EST RN Lead:Vale Cooper RN Date: 09/05/2023 Patient seen for ASC: vestibular migraines Pt. seen: 09/02/2023 Treatment plan: Meclizine HCl 25 MG Oral Tablet (Antivert) Pt's symptoms seem consistent with vestibular migraine. He will keep meclizine on hand to start as soon as he feels that symptoms are comingon. He will then let us know how this works for him. Keep symptom and frequency diary. To call withany issues Call to pt-no answer-message left to call back at [phone] * Yu Arora LPN - 09/02/2023 4:30 PM EST Immunization Administration Documentation Time Out Procedure Performed: Yes Patient Identified (Ask Name/Date of ): Yes Does the patient have a fever greater than 101 degrees today? No Patient allergic to latex? No VFC Stock: No Immunization(s) verified: Yes, Immunization Name: Prevnar 20 (PCV20), VIS Sheet(s) given: Yes Verified Side and Site: Yes Verified Shot(s) with Parent(s)/Patient: Yes * Keerthi Cano DO - 09/02/2023 4:07 PM EST SUBJECTIVE: Chief Complaint Patient presents with Follow Up HPI: Abdi Clarke is a 68 year old male who presents today for regular return. Pt notes that heis doing well. He notes no further episodes since he was last seen. Cardiology did not feel this was cardiac in nature. MRI with no significant issues. Pt feels that he is doing well. PHM: Patient Active Problem List Diagnosis Code Essential hypertension with goal blood pressure less than 140/90 I10 Disorder of ejaculation N53.19 Obstructive sleep apnea syndrome G47.33 Herpes labialis B00.1 Colitis, acute K52.9 Shigella infection A03.9 Open-angle glaucoma H40.10X0 Open-angle glaucoma H40.10X0 Current Outpatient Medications Medication Sig Dispense Refill Aspirin 81 MG Tablet Take 1 Tablet by mouth in the morning. Respiratory Therapy Supplies ERIC Use as directed at bedtime. BiPAP Ammonium Lactate 12 % External Cream (Lac-Hydrin) apply to the bottoms of feet daily 280 g 3 Celecoxib 200 MG Oral Capsule (CeleBREX) 200 mg orally daily in the morning for Osteoarthritis of hand 90 Capsule 1 Losartan Potassium 50 MG Oral Tablet (Cozaar) take 1 tablet by mouth daily in the morning 90 Tablet1 Emtricitabine-Tenofovir DF 200-300 MG Oral Tablet (Truvada) Take 1 Tablet by mouth in the morning. Centrum Silver 50+Men Oral Tablet Take 1 Tablet by mouth in the morning. Systane 0.4-0.3 % Ophthalmic Solution (Artificial Tears) Instill 1 Drop into both eyes 2 times a day as needed for Dry eyes. Sildenafil Citrate 100 MG Oral Tablet Take 1 Tablet by mouth as needed for Erectile Dysfunction. 10Tablet 1 No current facility-administered medications for this visit. Past Medical History: Diagnosis Date Hypertension Neuropathy Osteoarthritis Past Surgical History: Procedure Laterality Date INFORMATION Bilateral cataract DC APPENDECTOMY DC OPEN REPAIR OF ROTATOR CUFF ACUTE DC RPR UMBILICAL HRNA 5 YRSOR MORE REDUCIBLE REMOVAL OF TONSILS, UNDER AGE 12 Review of patient's allergies indicates: Allergen Reactions Lisinopril Cough Family History Problem Relation Age of Onset Gastro-intestinal disorder Mother Crohn's Cancer Mother Brain Lung Disorder Father Cancer Brother Lymphoma Other (Other) Brother Fall? Family Status Relation Status Mo Fa Alive Bro (Not Specified) Bro Social History Tobacco Use Smoking status: Never Smokeless tobacco: Never Substance Use Topics Alcohol use: Not Currently Vaping/E-Cigarette Use Vaping/E-Cigarette Use Never User Vaping/E-Cigarette Substances Vaping/E-Cigarette Devices REVIEW OF SYSTEMS: Review of Systems Constitutional: Negative for chills, fatigue, fever and unexpected weight change. Respiratory: Negative for cough, chest tightness, shortness of breath and wheezing. Cardiovascular: Negative for chest pain, palpitations and leg swelling. Gastrointestinal: Negative for abdominal pain, constipation, diarrhea, nausea and vomiting. Musculoskeletal: Negative for arthralgias, gait problem and joint swelling. Skin: Negative for color change, pallor and rash. OBJECTIVE: BP 114/64 (BP Site: Left Arm, BP Position: Sitting, BP Cuff Size: Regular) | Pulse 76 | Temp 36.4 C (97.5 F) (Tympanic) | Resp 12 | Ht 1.778 m (5' 10") | Wt 89.9 kg (198 lb 4.8 oz) | SpO2 97% | BMI 28.45 kg/m | BSA 2.11 m PHYSICAL EXAM: Physical Exam Constitutional: General: He is not in acute distress. Appearance: He is well-developed. Cardiovascular: Rate and Rhythm: Normal rate and regular rhythm. Heart sounds: Normal heart sounds. No murmur heard. No friction rub. No gallop. Pulmonary: Effort: Pulmonary effort is normal. No respiratory distress. Breath sounds: Normal breath sounds. No wheezing or rales. Abdominal: General: Bowel sounds are normal. There is no distension. Palpations: Abdomen is soft. Tenderness: There is no abdominal tenderness. There is no guarding. Musculoskeletal: General: No tenderness or deformity. Normal range of motion. Skin: General: Skin is warm and dry. Coloration: Skin is not pale. Findings: No erythema or rash. Neurological: Mental Status: He is alert and oriented to person, place, and time. ASSESSMENT/PLAN: (G43.809) Vestibular migraine (primary encounter diagnosis) Plan: Meclizine HCl 25 MG Oral Tablet (Antivert) Pt's symptoms seem consistent with vestibular migraine. He will keep meclizine on hand to start as soon as he feels that symptoms are coming on. He will then let us know how this works for him. Keep symptom and frequency diary. To call with any issues. (Z23) Need for pneumococcal vaccination Plan: PNEUMOCOCCAL VACC, PCV20, IM ([id number]) Vaccine given. See admin record. (Z12.11) Special screening for malignant neoplasms, colon Plan: COLONOSCOPY, GI REFERRAL OP Pt will schedule colonoscopy. Follow-up: 4 months Total time today including reviewing chart before the visit, pertinent labs, imaging reports, face to face time, and documentation time was 33 minutes. Keerthi Cano DO documented in this encounter Nursing Notes * Yu Arora LPN - 09/02/2023 3:56 PM EST Patient here for routine follow up visit today. documented in this encounter Plan of Treatment Upcoming Encounters Date Type Department Care Team (Late st Contact Info) Description 11/09/2023 8:00 AM EDT Office Visit [facility] [address] [place] [address] Lillie Solitario MD [address] [facility] [place] [address] 01/05/2024 2:20 PM EDT Office Visit Family Practice [address], [place] [address] [place] [phone] Keerthi Cano DO [address] [place] [address] 02/10/2024 9:00 AM EDT Office Visit Dermatology, [facility] Carmen [address] [place] [address] Teagan Jaramillo PA-C [address] [place] [id number] Scheduled Referrals Name Type Priority Associated Diagnoses Orde r Schedule COLONOSCOPY, GI REFERRAL OP Referral Within 30 days (routine) Special screening for malignant neoplasms, colon Ordered: 09/02/2023 Health Maintenance Due Date Last Done Comments [...] as of this encounter Visit Diagnoses Diagnosis Vestibular migraine- Primary Need for pneumococcal vaccination Need for prophylactic vaccination against streptococcus pneumoniae (pneumococcus) Special screening for malignant neoplasms, colon documented in this encounter Advance Directives Latest Code Status on File Code Status Date Activated Date Inactivated Comments No Code 05/23/2019 5:16 PM 05/24/2019 9:25 PM Th is order reflects the patients wishes and were consensually agreed upon. Care Teams Farmer Vegetable Relationship Specialty Start Date End Date Keerthi Cano DO [address] [place] [address] PCP - General Family Medicine 07/29/23 documented as of this encounter
--- OUTSIDE RECORDS SUMMARY | 2023-12-24 15:55 | External Medical Summary | Summary of Care ---
Author Name Unknown Organization [facility] Address [address] [facility] [place] [address] Phone [phone] Care Team Providers Care Social Work Lecturer Name Role Phone Keerthi Cano DO Primary Care Provider [phone] Reason for Visit * Reason Comments NEW PATIENT Episodes of near syn cope; peripheral vision changes; feelings of instability; feeling lousy, "off". States during worse episodes, feels like he is on a raft in the ocean. Began in 2020, more recently has flared up. * Evaluate & Treat - Unlimited Visits (Within 10 days (routine)) - Authorized Specialty Diagnoses / Procedures Referred By Contact Referred To Contact Cardiovascular Medicine / Cardiology Diagnoses Near syncope Keerthi Cano, [address] [place] [address] Referral ID Status Reason Start Date Expiration Date Visits Requested Visits Authorized [id number] Authorized Specialty Services Required 08/23/[phone] Encounter Details Date Type Department Care Team (Late st Contact Info) Description 08/30/2023 11:30 AM EST Office Visit Cardiology, [facility] [address] [place] [address] Josefina Casey PA-C [address] [place] [address] [place] [address] Near syncope*; Lightheadedness; HTN, goal below 130/80 Allergies Active Allergy Reactions Criticality Noted Date Comments Lisinopril Cough 05/23/2019 documented as of this encounter (statuses as of 08/30/2023) Medications Medication Sig Dispensed Refills Start Date [...] the morning 90 Tablet 1 06/09/2023 Active Emtricitabine-T enofovir DF 200-300 MG Oral Tablet (Truvada) Take [...] Erectile Dysfunction. 10 Tablet 1 08/15/2023 Active Diclofenac Sodium 1 % External Gel (Voltaren) Apply topically to affected area. Apply to knees as needed 0 4 Discontinue d(Patient preference/ discontinua tion) documented as of this encounter (statuses as of 08/30/2023) Active Problems Problem Noted Date Diagnosed Date Open-angle glaucoma 08/01/2023 Open-angle glaucoma 08/01/2023 Shigella infection 05/24/2019 Essential hypertension with goal blood pressure less than 140/90 05/23/2019 Disorder of ejaculation 05/23/2019 Obstructive sleep apnea syndrome 05/23/2019 Herpes labialis 05/23/2019 Colitis, acute 05/23/2019 documented as of this encounter (statuses as of 08/30/2023) Immunizations Name Administration Dates Next Due COVID-19 mRNA, LNP-s, No Pre serve, 2-Dose Series (LegCyte) 10/09/2020,09/18/2020 Seasonal Influenza, PF, 6 M & above, IM , (FluLaval or Fluzone) 05/24/2019 TDAP (age 11 and older)(Adacel) 11/23/2021 Zoster Vaccine Recombinant (Shingrix) 03/18/2020 ,01/09/2020 documented as of this encounter Social History Tobacco Use Types Packs/Day Years Used Date Smoking Tobacco: Never Smokeless Tobacco: Never Tobacco Cessation:Counseling Given: Not Answered Alcohol Use Standard Drinks/Week Comments Not Currently [...] Sign Reading Time Taken Comments Blood Pressure 120/74 08/30/2023 11:31 AM EST Pulse 72 08/30/2023 11:31 AM EST Temperature - - Respiratory Rate 20 08/30/2023 11:31 AM EST Oxygen Saturation - - Inhaled Oxygen Concentration - - Weight 89 kg (196 lb 4 oz) 08/30/2023 11:[address] Height - - Body Mass Index 28.16 07/29/2023 10:18 AM EST documented in this encounter Functional Status [...] as of this encounter Progress Notes * Josefina Casey PA-C - 08/30/2023 11:30 AM EST [facility], [facility] New Cardiology Patient 08/30/2023 CC: near syncope History of Present Illness: Abdi Clarke is a 68 year old male with past medical history of HTN, arthritis, who presents asnew patient, referred by PCP Dr. Cano. States since October 2020 he has had episodes of peripheral vision loss, then feeling unsteady, brainfog. When it is really bad he feels like he is on a raft in the water. Can last as long as 4 days. He is still able to drive during these episodes. Occur infrequently, as long as 6 months between episodes. He was previously evaluated at [facility] cardiology and neurology. Had echo and EEG in past which were unremarkable. Also had CT head, carotid duplex, recently had MRI brain. He is very active, goes to gym regularly. Denies chest pain, shortness of breath, edema. Denies smoking, alcohol, drug use. Plays the piano. Family history: Maternal grandfather with [place] Mother of aggressive form of brain cancer Father had stroke REVIEW OF SYSTEMS: See HPI for pertinent positives. All others negative other than those noted in the HPI. CONSTITUTIONAL: No change in weight, No weakness, No fatigue and No fevers, No sweats or chills. PULMONARY: No cough, sputum, or hemoptysis, No wheezing, No shortness or breath and No recent change in breathing. CARDIOVASCULAR: No chest pain, No dyspnea on exertion, No edema, No palpitations and No syncope. GASTROINTESTINAL: No abdominal pain, No change in bowel habits, No significant heartburn, No nausea, No vomiting, No diarrhea, No constipation, No blood in stools or black tarry stools. No dysphagia. HEMATOLOGIC: No abnormal bleeding and No bruising. NEUROLOGICAL: No headaches and No weakness. Past Medical History: Patient Active Problem List Diagnosis Code Essential hypertension with goal blood pressure less than 140/90 I10 Disorder of ejaculation N53.19 Obstructive sleep apnea syndrome G47.33 Herpes labialis B00.1 Colitis, acute K52.9 Shigella infection A03.9 Open-angle glaucoma H40.10X0 Open-angle glaucoma H40.10X0 Past Surgical History: Procedure Laterality Date INFORMATION Bilateral cataract [place] APPENDECTOMY [place] OPEN REPAIR OF ROTATOR CUFF ACUTE TN RPR UMBILICAL HRNA 5 YRSOR MORE REDUCIBLE REMOVAL OF TONSILS, UNDER AGE 12 Family History: Family History Problem Relation Age of Onset Gastro-intestinal disorder Mother Crohn's Cancer Mother Brain Lung Disorder Father Cancer Brother Lymphoma Other (Other) Brother Fall? Social History: Social History Socioeconomic History Marital status: Single Spouse name: Not on file Number of children: Not on file Years of education: Not on file Highest education level: Not on file Occupational History Not on file Tobacco Use Smoking status: Never Smokeless tobacco: Never Vaping Use Vaping Use: Never used Substance and Sexual Activity Alcohol use: Not Currently Drug use: Never Sexual activity: Not on file Other Topics Concern Not on file Social History Narrative Not on file Social Determinants of Health Financial Resource Strain: Not on file Food Insecurity: No Food Insecurity (07/29/2023) Hunger Vital Sign Worried About Running Out of Food in the Last Year: Never true Ran Out of Food in the Last Year: Never true Transportation Needs: Not on file Physical Activity: Not on file Stress: Not on file Social Connections: Not on file Intimate Partner Violence: Not on file Housing Stability: Not on file Allergies: Lisinopril Medications: Current Outpatient Medications Medication Sig Dispense Refill [...] No current facility-administered medications for this visit. PHYSICAL EXAMINATION: BP 120/74 (BP Site: Left Arm, BP Position: Sitting, BP Cuff Size: Large) | Pulse 72 | Resp 20 | Wt 89 kg (196 lb 4 oz) | BMI 28.16 kg/m | BSA 2.1 m General: No acute distress. A+Ox3. HEENT: Normocephalic. Atraumatic. PERRL. EOMI. Conjunctiva and sclera clear. NECK: No carotid bruits. No JVD. Carotid upstrokes are brisk. Heart: RRR. S1 and S2 noted. No murmur. No rubs or gallops. PMI non displaced. Lungs: Clear to auscultation. No wheezes.No rhonchi. No rales. Abdomen: Normal bowel sounds. Soft. Nontender. No masses or organomegaly. No abdominal bruits. Extremities: No edema. No clubbing or cyanosis. Pulses: radial=2/4, posterior tibial=2/4, dorsalis pedis = 2/4. NEURO: No focal deficits. PSYCH: Appropriate affect and insight. DATA Labs & Imaging Reviewed Below: EKG 08/30/23 NSR, 61 bpm Zio 07/2023 Patient had a min HR of 48 bpm, max HR of 153 bpm, and avg HR of 80 bpm. Predominant underlying rhythm was Sinus Rhythm. Bundle Branch Block/IVCD was present. 1 run of Ventricular Tachycardia occurred lasting 6 beats with a max rate of 103 bpm (avg 103 bpm). 2 Supraventricular Tachycardia runs occurred, the run with the fastest interval lasting 7 beats with a max rate of 114 bpm (avg 109 bpm); the run with the fastest interval was also the longest. Isolated SVEs were rare (<1.0%), SVE Couplets were rare (<1.0%), and SVE Triplets were rare (<1.0%). Isolated VEs were rare (<1.0%, 5291), VE Couplets were rare (<1.0%, 101), and VE Triplets were rare (<1.0%, 1). Ventricular Bigeminy and Trigeminy were present. Agree with Preliminary Findings The patient's triggered events and diary entries correlated mostly to sinus rhythm. Echo 10/11/20 ([facility]) EF 55-60% Mild concentric left ventricular hypertrophy Grade I diastolic dysfunction No significant valvular disease IMPRESSION: 68 year old male Near syncope, dizziness HTN RECOMMENDATIONS/PLAN: - he has infrequent episodes of bilateral peripheral vision loss, lightheadedness, feels like he ute a boat, can last for 4 days, no specific triggers - reviewed Zio, states he had 2 minor episodes while wearing, symptoms correlated with sinus rhythm - previous echo unremarkable, discussed could repeat echo to evaluate for structural disease, he would like to hold off at this time - low suspicion events are cardiac related, possible atypical migraines vs vestibular dysfunction, offered further testing, but he states he would like to monitor symptoms and hold on further testingat this time - records from [facility] reviewed, including testing and lab work - no medication changes - continue to stay well hydrated, exercise as tolerated Disposition: F/u PRN The patient agrees to the above plan and will call with additional questions or concerns. All questions were answered to the patients satisfaction. ER with all emergencies advised. Josefina Casey PA-C Cardiology, [address] [place] [address] I spent a total of 55 minutes on the date of service in preparation, delivery, and documentation ofthe care provided to Abdi Clarke excluding any time spent in the performance of separately billed services. This chart was completed in part utilizing [employer] Speech Voice Recognition Software. Grammatical errors, random word insertions, prounoun errors, and incomplete sentences are an occasional consequence of this system due to software limitations, ambient noise, and hardware issues. Any formal questions or concerns about the content, text, or information contained within the body of this dictation should be directly addressed to the provider for clarification. documented in this encounter Nursing Notes * Beverly Sosa CMA - 08/30/2023 11:28 AM EST Chief Complaint Patient presents with NEW PATIENT Episodes of near syncope; peripheral vision changes; feelings of instability; feeling lousy, "off".States during worse episodes, feels like he is on a raft in the ocean. Began in 2020, more recentlyhas flared up. Examination Room: 6 Name: Abdi Clarke Date of : (1955). Reason for Visit: New patient Interim Hospitalization(s): none Problems/Concerns: see chief complaint Chest Pain/SOB: denies [facility] Discussed: No [facility] is a way you can talk to your provider online through e-mail. Would you like to sign up? I can activate it for you? ALREADY ACTIVE Patient was instructed to not get up on the exam table until directed and assisted by their provider; patient is to remain seated in the chair/ wheelchair/ exam table for fall prevention and safety reasons. Patient is aware to have assistance to step down off exam table with personnel. Patient voiced full comprehension of instructions. documented in this encounter Plan of Treatment Upcoming Encounters Date Type Department Care Team (Late st Contact Info) Description 09/02/2023 4:00 PM EST Office Visit Family Practice [address] [place] [address] [address] [place] [address] Keerthi Cano DO [address] [place] [address] 11/09/2023 8:00 AM EDT Office Visit [facility] [address] [place] [address] Lillie Solitario MD [address] [place] [address] 02/10/2024 9:00 AM EDT Office Visit Dermatology, [place] [address] [place] [address] [place] [address] Teagan Jaramillo PA-C [address] [place] [address] [place] [address] Scheduled Orders Name Type Priority Associated Diagnoses Orde r Schedule EKG EKG Routine Near syncope Ordered: 08/30/2023 Health Maintenance Due Date Last Done Comments Depression Screening 1967 Albumin/Creatinine Ratio 1973 Cologuard 2000 Colonoscopy 2000 Colorectal Cancer Screening 2000 Fecal Occult Blood Test 2000 Sigmoidoscopy 2000 Pneumococcal Vaccine: 65+ Years (1 of 1 - PCV) 2020 GFR 02/03/2023 02/03/2022, 05/24/2019, [...] Diagnosis Near syncope- Primary Syncope and collapse Lightheadedness Dizziness and giddiness HTN, goal below 130/80 Unspecified essential hypertension documented in this encounter Advance Directives Latest Code Status on File Code Status Date Activated Date Inactivated Comments No Code 05/23/2019 5:16 PM 05/24/2019 9:25 PM Thi s order reflects the patients wishes and were consensually agreed upon. Care Teams Social Work Lecturer Relationship Specialty Start Date End Date Keerthi Cano DO [address] [place] [address] PCP - General Family Medicine 07/29/23 documented as of this encounter
--- OUTSIDE RECORDS SUMMARY | 2023-12-24 15:55 | External Medical Summary | Summary of Care ---
Author Name Unknown Organization [facility] Address [address] [place] [address] Phone [phone] Care Team Providers Care Network Development Coordinator Name Role Phone Keerthi Cano DO Primary Care Provider Reason for Visit * Reason Onset Date Comments Med Request 08/15/2023 Encounter Details Date Type Department Care Team (Late st Contact Info) Description 08/15/2023 Telephone Family Practice [address] [place] [address] [place] [phone] Keerthi Cano DO [address] [place], [place] [id number] Med Request Allergies Active Allergy Reactions Criticality Noted Date Comments Lisinopril Cough 05/23/2019 documented as of this encounter (statuses as of 11/14/2023) Medications Medication Sig Dispensed Refills Start Date [...] Erectile Dysfunction. 10 Tablet 1 08/15/2023 Active Celecoxib 200 MG Oral Capsule (CeleBREX) 200 mg orally daily in the morning for Osteoarthritis of hand 90 Capsule 1 02/08/2023 4 Discontinue d(Refill) Sildenafil Citrate 100 MG Oral Tablet Take 1 Tablet by mouth as needed. 0 06/15/2023 4 Discontinue d(Refill) Diclofenac Sodium 1 % External Gel (Voltaren) Apply topically to affected area. Apply to knees as needed 0 4 Discontinue d(Patient preference/ discontinua tion) documented as of this encounter (statuses as of 11/14/2023) Active Problems Problem Noted Date Diagnosed Date Open-angle glaucoma 08/01/2023 Open-angle glaucoma 08/01/2023 Shigella infection 05/24/2019 Essential hypertension with goal blood pressure less than 140/90 05/23/2019 Disorder of ejaculation 05/23/2019 Obstructive sleep apnea syndrome 05/23/2019 Herpes labialis 05/23/2019 Colitis, acute 05/23/2019 documented as of this encounter (statuses as of 11/14/2023) Immunizations Name Administration Dates Next Due COVID-19 mRNA, LNP-s, No Pre serve, 2-Dose Series (Ikonopedia) 10/09/2020,09/18/2020 Seasonal Influenza, PF, 6 M & [...] encounter Miscellaneous Notes * Telephone Encounter - Keerthi Cano DO - 08/15/2023 9:55 AM EST Rx sent. * Telephone Encounter - Zehra Robertson CPhT - 08/15/2023 8:45 AM EST Patient calling requesting the following medication below that is listed as "Historical". The following information was provided: Medication Name: Sildenafil Strength: 100 MG Directions: take 1 tab by mouth as needed Preferred Quantity: 30 day Previous Prescriber: Preferred Pharmacy: [id number] Please review and approve if appropriate. Thank you, Zehra Robertson, Operations Logistics Analyst [facility]) 08/15/2023, 8:46 AM documented in this encounter Plan of Treatment Upcoming Encounters Date Type Department Care Team (Latest Contact Info) Description 01/05/2024 2:20 PM EDT Office Visit Family Practice [address] [place] [address] [place] [address] Keerthi Cano, DO [address] [facility] [place] [address] 01/17/2024 1:15 PM EDT Office Visit [facility] [address] [place] [address] Lillie Solitario MD [address] [place] [address] 02/10/2024 9:00 AM EDT Office Visit Dermatology, [place] [address] [place] [address] [place] [address] Teagan Jaramillo PA-C [address] [place] [place] [address] 03/06/2024 9:30 AM EDT Hospital Encounter ENDO [facility], Endoscopy Room [facility] [address] [place] [phone] Kirsten Schwartz DO [address] [place] [address] 03/06/2024 9:30 AM EDT - 03/06/2024 10:00 AM EDT Surgery ENDO [facility], Endoscopy Room [facility] [address] [place] [phone] Kirsten Schwartz DO [address] [place] [address] COLONOSCOPY FLEXIBLE PROXIMAL DIAGNOSTIC Scheduled Procedures Name Priority Associated Diagnoses Date/Ti me COLONOSCOPY FLEXIBLE PROXIMAL DIAGNOSTIC Special screening for malignant neoplasms, colon 03/06/2024 9:30 AM EDT Health Maintenance Due Date Last Done Comments [...] Not on filedocumented as of this encounter Advance Directives Latest Code Status on File Code Status Date Activated Date Inactivated Comments No Code 05/23/2019 5:16 PM 05/24/2019 9:25 PM Thi s order reflects the patients wishes and were consensually agreed upon. Care Teams Network Development Coordinator Relationship Specialty Start Date End Date Keerthi Cano DO [address] [place] [address] PCP - General Family Medicine 07/29/23 documented as of this encounter
--- OUTSIDE RECORDS SUMMARY | 2023-12-24 15:55 | External Medical Summary | Summary of Care ---
Author Name Unknown Organization [facility] Address [address] [place] [address] Phone [phone] Care Team Providers Care Compressor Battery Pellets Name Role Phone Keerthi Cano DO Primary Care Provider [phone] Reason for Referral * Ancillary Services (Within 30 days (routine)) - Authorized Specialty Diagnoses / Procedures Referred By Contac t Referred To Contact Gastroenterology Diagnoses Special screening for malignant neoplasms, colon Keerthi Cano DO [address] [place] [address] Referral ID Status Reason Start Date Expiration Date Visits Requested Visits Authorized [id number] Authorized Ancillary Services Required 09/02/[phone] Question Answer Referral Priority Within 30 days (routine) Where should this appointment be scheduled? [facility] ALERT: Do not order for pediatric patients (18 years or younger). Cancel off screen and order PEDS GASTROENTEROLOGY CONSULT (Type: 1 visit only-Evaluate and Treat) The following Pt. Instructions are available: - Gastro Colonoscopy Prep Instructions [[id number]] - Gastro Colonoscopy Prep Instructions (Czech Version) [[id number]] Go to the Pt. Instructions section within the Visit Navigator to access. Colonoscopy ASGE Guidelines: Average risk screening (begin at age 50, 10 year intervals) ADDITIONAL INFORMATION 1. Is the patient on Coumadin? No 2. Is the patient on Pradaxa? No Reason for Visit * Reason Comments Follow Up Encounter Details Date Type Department Care Team ([facility] st Contact Info) Description 09/02/2023 4:00 PM EST Office Visit Family Practice [address], [place] [address] [place] [phone] Keerthi Cano DO [address] [place] [address] Vestibular migraine*; Need for pneumococcal vaccination; Special screening for malignant neoplasms, colon Allergies Active Allergy Reactions Criticality Noted Date Comments Lisinopril Cough 05/23/2019 documented as of this encounter (statuses as of 09/06/2023) Medications Medication Sig Dispensed Refills Start Date [...] as of this encounter (statuses as of 09/06/2023) Active Problems Problem Noted Date Diagnosed Date Open-angle glaucoma 08/01/2023 Open-angle glaucoma 08/01/2023 Shigella infection 05/24/2019 Essential hypertension with goal blood pressure less than 140/90 05/23/2019 Disorder of ejaculation 05/23/2019 Obstructive sleep apnea syndrome 05/23/2019 Herpes labialis 05/23/2019 Colitis, acute 05/23/2019 documented as of this encounter (statuses as of 09/06/2023) Immunizations Name Administration Dates Next Due COVID-19 [...] provider Abdominal pain Vomiting Date Last Reviewed: 05/14/201519995120-9878 [employer]. [address] [place] [address]. All rights reserved. This information is not [...] Progress Notes * Vale Cooper RN - 09/06/2023 1:30 PM EST RN Lead:Vale Cooper RN Date: 09/06/23 Patient seen for ASC: vestibular migraines Connected with patient via phone. Verified patient name/. Assessment: Pt. seen: 09/02/23 Treatment plan: Meclizine HCl 25 MG Oral Tablet (Antivert) Pt's symptoms seem consistent with vestibular migraine. He will keep meclizine on hand to start as soon as he feels that symptoms are comingon. He will then let us know how this works for him. Keep symptom and frequency diary. To call withany issues Status update: pt states he is doing well-has not had any episodes so hasn't needed to try the antivert but he does have it there. States he knows he can take tid as needed. Aware he is to keep a logof symptoms and frequencies. He is to call with any problems or concerns. Medication Reconciliation: Medication Reconciliation completed: Yes Careteam: Order Processor: No Please let patient know you will be sharing with the CM and they may contact patient for future follow up. If patient is case managed, please route note to CM. If patient requires further follow-up for this ASC episode, please reach out directly to the complex case manager via Teams or [employer]. Plan for Future Contacts: Plan to follow up Keep scheduled appointment Advancement/Closure Plan: Patient provided contact information and encouraged to call CM or clinic directly with any changes in condition. * Vale Cooper RN - 09/05/2023 1:55 [...] pt-no answer-message left to call back at [phone] * Yu Arora LPN - 09/02/2023 4:30 [...] History: Procedure Laterality Date INFORMATION Bilateral cataract ID APPENDECTOMY ID OPEN REPAIR OF ROTATOR CUFF ACUTE ID RPR UMBILICAL HRNA 5 YRSOR MORE REDUCIBLE [...] pneumococcal vaccination Plan: PNEUMOCOCCAL VACC, PCV20, IM ([id number]) Vaccine given. See admin record. (Z12.11) Special [...] Description 11/09/2023 8:00 AM EDT Office Visit [facility] Surgery [facility] [address] [place] [address] Lillie Solitario MD [address] [facility] [place] [address] 01/05/2024 2:20 PM EDT Office Visit Family Practice [address] [place] [address] [place] [phone] Keerthi Cano DO [address] [facility] [address] 02/10/2024 9:00 AM EDT Office Visit Dermatology, [place] [address] [place] [address] [place] [address] Teagan Jaramillo PA-C [address] [place] [address] [place] [address] Scheduled Referrals Name Type Priority Associated Diagnoses [...] and were consensually agreed upon. Care Teams Compressor Battery Pellets Relationship Specialty Start Date End Date Keerthi Cano DO [address] [place] [address] PCP - General Family Medicine 07/29/23 documented as of this encounter
--- OUTSIDE RECORDS SUMMARY | 2023-12-24 15:55 | External Medical Summary | Summary of Care ---
Author Name Unknown Organization [facility] Address [address] [place] [address] Phone [phone] Care Team Providers Care Pumper Gauger Name Role Phone Keerthi Cano DO Primary Care Provider [phone] Reason for Visit * Reason Onset Date Comments Appointment 09/02/2023 Colonoscopy Encounter Details Date Type Department Care Team (Late st Contact Info) Description 09/02/2023 Telephone Family Practice [address], [place] [address] [place] [phone] Keerthi Cano DO 293 [place] [address] Appointment (Colonoscopy) Allergies Active Allergy Reactions Criticality Noted Date [...] mRNA, LNP-s, No Pre serve, 2-Dose Series ([employer]) 10/09/2020,09/18/2020 Pneumococcal Conjugate Vaccine, 20-valent (Prevn ar20) [...] (15 years old or older) No 05/23/20 Cognitive Status Response Date of Assessm ent Because of a physical, menta l, or emotional condition, do you have serious difficulty concentrating, remembering, or making decisions? (5 years old or older) No 05/23/2019 documented as of this encounter Miscellaneous Notes * Telephone Encounter - Julieth Poole OSA - 09/06/2023 3:00 PM EST lmm * Telephone Encounter - Ashlee Neves OSA - 09/02/2023 5:19 PM EST Please contact pt to set up colonoscopy at the [facility] location. Pt states no pref on doc or day. Pt all no's however; did have MRSA approx 5 years ago. documented in this encounter Plan of Treatment Upcoming Encounters Date Type Department Care Team (Late st Contact Info) Description 11/09/2023 8:00 AM EDT Office Visit [facility] Surgery [facility] 200 [place] [address] Lillie Solitario MD 200 [place] [address] 01/05/2024 2:20 PM EDT Office Visit Family Practice [address], [place] [address] [place] [address] Keerthi Cano DO 293 [place] [address] 02/10/2024 9:00 AM EDT Office Visit Dermatology, [place] Carmen [address] [place] [address] [place] [address] Teagan Jaramillo PA-C [address] [place] [address] [place] [address] Health Maintenance Due Date Last Done Comments [...] and were consensually agreed upon. Care Teams Pumper Gauger Relationship Specialty Start Date End Date Keerthi Cano DO [address] [place] [address] PCP - General Family Medicine 07/29/23 documented as of this encounter
--- OUTSIDE RECORDS SUMMARY | 2023-12-24 15:55 | External Medical Summary | Summary of Care ---
Author Name Unknown Organization [facility] Address [address] [place] [address] Phone [phone] Care Team Providers Care Punch Press Operator Helper Name Role Phone Keerthi Cano DO Primary Care Provider Reason for Visit * Reason Onset Date Comments Returning Call 09/05/202309/05 Encounter Details Date Type Department Care Team (Late st Contact Info) Description 09/05/2023 Telephone Family Practice [address], [place] 293 [place] [phone] Keerthi Cano DO [address] [place] [address] Returning Call (09/05) Allergies Active Allergy Reactions Criticality Noted Date [...] mRNA, LNP-s, No Pre serve, 2-Dose Series ([employer] ([employer])) 10/09/2020,09/18/2020 Pneumococcal Conjugate Vaccine, 20-valent (Prevn ar20) [...] encounter Miscellaneous Notes * Telephone Encounter - Vale Cooper RN - 09/06/2023 3:38 PM EST Spoke with pt-see addendum to office note from 09/02/23 * Telephone Encounter - Ashlee Duran OSA - 09/05/2023 2:57 PM EST Patient called in, returning MJ call documented in this encounter Plan of Treatment Upcoming Encounters Date Type Department Care Team (Latest Contact Info) Description 11/09/2023 8:00 AM EDT Office Visit [facility] [address] Lillie Solitario MD [address] [facility] [place] [address] 01/05/2024 2:20 PM EDT Office Visit Family Practice [address], [place] [address] [place] [address] Keerthi Cano DO 293 [place] [address] 02/10/2024 9:00 AM EDT Office Visit Dermatology, [place] [address] [place] [address] [place] [address] Teagan Jaramillo PA-C [address] [place] [address] [place] [address] 03/06/2024 9:30 AM EDT Hospital Encounter ENDO [facility], Endoscopy Room [facility] [address] [place] [address] Kirsten Schwartz DO [address] [place] [address] 03/06/2024 9:30 AM EDT - 03/06/2024 10:00 AM EDT Surgery ENDO [facility], Endoscopy Room [facility] [address] [place] [phone] Kirsten Schwartz DO [address] [place] [address] COLONOSCOPY FLEXIBLE PROXIMAL DIAGNOSTIC Scheduled Procedures Name [...] and were consensually agreed upon. Care Teams Punch Press Operator Helper Relationship Specialty Start Date End Date Keerthi Cano DO [address] [place] [address] PCP - General Family Medicine 07/29/23 documented as of this encounter
--- OUTSIDE RECORDS SUMMARY | 2023-12-24 15:55 | External Medical Summary | Summary of Care ---
Author Name Unknown Organization [facility] Address [address] [place] [address] Phone [phone] Care Team Providers Care High School Agriculture Teacher Name Role Phone Keerthi Cano DO Primary Care Provider Reason for Referral * Evaluate & Treat - Unlimited Visits (Within 10 days (routine)) - Authorized Specialty Diagnoses / Procedures Referred By Contact Referred To Contact Cardiovascular Medicine / Cardiology Diagnoses Near syncope Keerthi Cano DO [address] [place] [address] Referral ID Status Reason Start Date Expiration Date Visits Requested Visits Authorized [id number] Authorized Specialty Services Required 08/23/2023 999 999 [...] Description 08/23/2023 Telephone Family Practice [address], [place] 293 [place] [phone] Keerthi Cano DO [address] [place] [address] Test Results (08/23) Allergies Active Allergy Reactions [...] mRNA, LNP-s, No Pre serve, 2-Dose Series ([employer]) 10/09/2020,09/18/2020 Seasonal Influenza, PF, 6 M & [...] Miscellaneous Notes * Telephone Encounter - Ashlee Neves OSA - 08/23/2023 10:02 AM EST Appt scheduled, pt aware * Telephone Encounter - Ashlee Duran OSA [...] him get a second opinion from our dip stand loader but I do not think that there is anything that is an overall contributor to his symptoms. Keep appt for MRI. documented in this encounter Plan of Treatment Upcoming Encounters Date Type Department Care Team (Late st Contact Info) Description 08/26/2023 11:15 AM EST Imaging Radiology [address] [facility] [place] [address] 08/30/2023 11:30 AM EST Office Visit Cardiology, [facility] 132 [facility] [place] [address] Josefina Casey PA-C [address] [place] [address] [place] [address] 09/02/2023 4:00 PM EST Office Visit Family Practice 65 [facility] [address] Keerthi Cano DO 293 [facility], [place] [address] 11/09/2023 8:00 AM EDT Office Visit [facility] [address] [place], [place] [address] Lillie Solitario MD [address] [place] [address] 02/10/2024 9:00 AM EDT Office Visit Dermatology, [place] Carmen [address] [place] [address] [place] [address] Teagan Jaramillo PA-C [address] [place] [address] [place] [address] Scheduled Referrals Name Type Priority Associated Diagnoses [...] and were consensually agreed upon. Care Teams High School Agriculture Teacher Relationship Specialty Start Date End Date Keerthi Cano DO [address] [place] [address] PCP - General Family Medicine 07/29/23 documented as of this encounter
--- OUTSIDE RECORDS SUMMARY | 2023-12-24 15:55 | External Medical Summary | Summary of Care ---
Author Name Unknown Organization [facility] Address [address] [place] [address] Phone [phone] Care Team Providers Care Special Education Preschool Teacher Name Role Phone Keerthi Cano DO Primary Care Provider Reason for Visit * Reason Onset Date Comments Appointment 09/02/2023 Colonoscopy Encounter Details Date Type Department Care Team (Late st Contact Info) Description 09/02/2023 Telephone Family Practice [address], [place] 293 [place] [phone] Keerthi Cano DO 293 [place] [address] Appointment (Colonoscopy) Allergies Active Allergy Reactions Criticality [...] mRNA, LNP-s, No Pre serve, 2-Dose Series ([employer]) 10/09/2020,09/18/2020 Pneumococcal Conjugate Vaccine, 20-valent (Prevn ar20) [...] Encounter - Julieth Poole OSA - 09/06/2023 3:39 PM EST Colon 03/06 * Telephone Encounter - Julieth Poole OSA - 09/06/2023 3:00 PM EST lmm * Telephone Encounter - Ashlee Neves OSA - 09/02/2023 5:19 PM EST Please contact pt to set up colonoscopy at the [facility] location. Pt states no pref on doc or day. Pt all no's however; did have MRSA approx 5 years ago. documented in this encounter Plan of Treatment Upcoming Encounters Date Type Department Care Team (Latest Contact Info) Description 11/09/2023 8:00 AM EDT Office Visit [facility] Surgery [facility] [address] [place] [address] Lillie Solitario MD 200 [place] [address] 01/05/2024 2:20 PM EDT Office Visit Family Practice [address], [place] 293 [place] [address] Keerthi Cano DO 293 [facility] [place] [address] 02/10/2024 9:00 AM EDT Office Visit Dermatology, [place] Carmen [address] [place] [address] [place] [address] Teagan Jaramillo PA-C [address] [place] [address] [place] [address] 03/06/2024 9:30 AM EDT Hospital Encounter ENDO [facility], Endoscopy Room [facility] [address] [place] [address] Kirsten Schwartz DO [address] [place] [address] 03/06/2024 9:30 AM EDT - 03/06/2024 10:00 AM EDT Surgery ENDO [facility], Endoscopy Room [facility] [address] [place] [phone] Kirsten Schwartz DO [address] [place] [address] COLONOSCOPY FLEXIBLE PROXIMAL DIAGNOSTIC Scheduled Procedures Name [...] and were consensually agreed upon. Care Teams Special Education Preschool Teacher Relationship Specialty Start Date End Date Keerthi Cano DO [address] [place] [facility] [place] [address] PCP - General Family Medicine 07/29/23 documented as of this encounter
--- OUTSIDE RECORDS SUMMARY | 2023-12-24 15:55 | External Medical Summary | Summary of Care ---
Author Name Unknown Organization [facility] Address [address] [place] [address] Phone [phone] Care Team Providers Care Architectural Project Manager Name Role Phone Keerthi Cano DO Primary Care Provider [phone] Reason for Referral * Ancillary Services (Within 30 days (routine)) - Authorized Specialty Diagnoses / Procedures Referred By Contac t Referred To Contact Gastroenterology Diagnoses Special screening for malignant neoplasms, colon Keerthi Cano DO [address] [place] [address] Referral ID Status Reason Start Date Expiration Date Visits Requested Visits Authorized [id number] Authorized Ancillary Services Required 09/02/2023 999 999 Question Answer Referral Priority Within 30 days (routine) Where should this appointment be scheduled? [facility] ALERT: Do not order for pediatric patients (18 years or younger). Cancel off screen and order PEDS GASTROENTEROLOGY CONSULT (Type: 1 visit only-Evaluate and Treat) The following Pt. Instructions are available: - Gastro Colonoscopy Prep Instructions [38380] - Gastro Colonoscopy Prep Instructions (Italian Version) [36622] Go to the Pt. Instructions section within the Visit Navigator to access. Colonoscopy ASGE Guidelines: Average risk screening (begin at age 50, 10 year intervals) ADDITIONAL INFORMATION 1. Is the patient on Coumadin? No 2. Is the patient on Pradaxa? No Reason for Visit * Reason Comments Follow Up Encounter Details Date Type Department Care Team ([facility] st Contact Info) Description 09/02/2023 4:00 PM EST Office Visit Family Practice [address], [place] 293 [place] [phone] Keerthi Cano DO [address] [place] [address] Vestibular migraine*; Need for pneumococcal vaccination; Special [...] provider Abdominal pain Vomiting Date Last Reviewed: 05/14/201519993262-7350 The [employer]. [address] [place] [address]. All rights reserved. This information is not [...] documented in this encounter Progress Notes * Yu Arora LPN - 09/02/2023 4:30 [...] History: Procedure Laterality Date INFORMATION Bilateral cataract AK APPENDECTOMY AK OPEN REPAIR OF ROTATOR CUFF ACUTE AK RPR UMBILICAL HRNA 5 YRSOR MORE REDUCIBLE [...] pneumococcal vaccination Plan: PNEUMOCOCCAL VACC, PCV20, IM ([id number]) Vaccine given. See admin record. (Z12.11) Special [...] Description 11/09/2023 8:00 AM EDT Office Visit [facility] Surgery [facility] [address] [place] [address] Lillie Solitario MD 200 [facility] [place] [address] 01/05/2024 2:20 PM EDT Office Visit Family Practice 65 [facility], [place] 293 [facility], [place] [address] Keerthi Cano DO 293 [facility] [place] [address] 02/10/2024 9:00 AM EDT Office Visit Dermatology, [place] Carmen [address] [place] [address] [place] [address] Teagan Jaramillo PA-C [address] [place] [address] [place] [address] Scheduled Referrals Name Type Priority Associated Diagnoses [...] and were consensually agreed upon. Care Teams Architectural Project Manager Relationship Specialty Start Date End Date Keerthi Cano DO [address] [place] [address] PCP - General Family Medicine 07/29/23 documented as of this encounter
--- OUTSIDE RECORDS SUMMARY | 2023-12-24 15:55 | External Medical Summary | Summary of Care ---
Author Name Unknown Organization [facility] Address [address] [place] [address] Phone [phone] Care Team Providers Care Preschool Education Director Name Role Phone Keerthi Velásquez DO Primary Care Provider [phone] Reason for Visit * Reason Onset Date Comments Medication Refill 12/20/2023 Encounter Details Date Type Department Care Team (Late st Contact Info) Description 12/20/2023 Refill Family Practice [address], [place] 293 [place] [phone] Keerthi Velásquez DO 293 [place] [address] Allergies Active Allergy Reactions Criticality Noted Date Comments Lisinopril Cough 05/23/2019 documented as of this encounter (statuses as of 12/21/2023) Medications Medication Sig Dispensed Refills Start Date End Date Status Aspirin 81 MG Tablet Take 1 Tablet by mouth in the morning. Active Respiratory Therapy Supplies ERIC Use as directed at bedtime. BiPAP Active Ammonium Lactate 12 % External Cream (Lac-Hydrin) apply to the bottoms of feet daily 280 g 3 01/19/2023 Active Losartan Potassium 50 MG Oral Tablet (Cozaar) take 1 tablet by mouth daily in the morning 90 Tablet 1 06/09/2023 Active Emtricitabine-T enofovir DF 200-300 MG Oral Tablet (Truvada) Take 1 Tablet by mouth in the morning. 07/02/2023 Active Centrum Silver 50+Men Oral Tablet Take 1 Tablet by mouth in the morning. Active Systane 0.4-0.3 % Ophthalmic Solution (Artificial Tears) Instill 1 Drop into both eyes 2 times a day as needed for Dry eyes. Active Meclizine HCl 25 MG Oral Tablet (Antivert)Indic ations:Vestibul ar migraine Take 1 Tablet by mouth 3 times a day as needed for Other (vestibular migraine). 30 Tablet 09/02/2023 Active Celecoxib 200 MG Oral Capsule (CeleBREX) TAKE 1 CAP (200 mg) BY MOUTH daily in the morning for Osteoarthritis of hand 90 Capsule 1 09/20/2023 Active Sildenafil Citrate 100 MG Oral Tablet Take 1 Tablet by mouth as needed for Erectile Dysfunction. 10 Tablet 1 12/21/2023 Active Sildenafil Citrate 100 MG Oral Tablet Take 1 Tablet by mouth as needed for Erectile Dysfunction. 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 Colitis, acute 05/23/2019 documented as of this encounter (statuses as of 12/21/2023) Immunizations Name Administration Dates Next Due COVID-19 mRNA, LNP-s, No Pre serve, 2-Dose Series ([email or web address]) 10/09/2020,09/18/2020 Pneumococcal Conjugate Vaccine, 20-valent (Prevn ar20) 09/02/2023 Seasonal Influenza, PF, 6 M & above, IM , (FluLaval or Fluzone) 05/24/2019 TDAP, Age 7 and older, IM (Adacel) 11/23/2021 Zoster Vaccine Recombinant (Shingrix) 03/18/2020 ,01/09/2020 [...] Miscellaneous Notes * Telephone Encounter - Keerthi Velásquez DO - 12/21/2023 8:04 AM EDTSigned Prescriptions: Disp Refills Sildenafil Citrate 100 MG Oral Tablet 10 Tab*1 Sig: Take 1 Tablet by mouth as needed for Erectile Dysfunction. Authorizing Provider: KEERTHI VELÁSQUEZ * Telephone Encounter - Azul Delgadob, [facility] - 12/20/2023 4:06 PM EDTPending Prescriptions: Disp Refills Sildenafil Citrate 100 MG Oral Tablet 10 Tab*1 Sig: Take 1 Tablet by mouth as needed for Erectile Dysfunction. * Telephone Encounter - Azul Delgado [facility] - 12/20/2023 4:05 PM EDT Did you pend patient's preferred pharmacy and medication before forwarding?yes Pharmacy: [id number] [address] [facility] Pending Prescriptions: Disp Refills Sildenafil Citrate 100 MG Oral Tablet 10 Tab*1 Sig: Take 1 Tablet by mouth as needed for Erectile Dysfunction. Last Visit: 09/02/2023 (in office), Visit date not found (telemedicine) Next Visit: 02/06/2024 If no future appointments scheduled, and last appointment is greater than a year ago, please schedule patient for a follow-up appointment Last date the medication was ordered: 08/15/23 Is this request for a controlled substance?No Urine Drug Screen:No results found for this or any previous visit. Patient Phone Numbers Labs: Lab Results Component Value Date/Time CREAT 1.20 02/03/2022 12:00 AM CREAT 0.9 05/24/2019 05:42 AM POTASSIUM 4.6 02/03/2022 12:00 AM POTASSIUM Specimen too Hemolyzed. Reorder if needed. 05/24/2019 05:42 AM TSH 1.246 02/03/2022 12:00 AM LDLCALC 86 02/03/2022 12:00 AM ALT 26 05/24/2019 05:42 AM HGBA1C 5.7 (A) 02/03/2022 12:00 AM documented in this encounter Plan of Treatment Upcoming Encounters Date Type Department Care Team (Latest Contact Info) Description 01/17/2024 1:15 PM EDT Office Visit [facility] Surgery [facility] [address] [place] [address] Lillie Solitario MD 200 [facility] [place] [address] 02/06/2024 2:20 PM EDT Office Visit Family Practice [address], [place] 293 [facility] [place] [address] Keerthi Velásquez, DO 293 [facility] [place] [address] 03/06/2024 9:30 AM EDT Hospital Encounter ENDO [facility], Endoscopy Room [facility] [address] [place] [phone] Kirsten Schwartz DO [address] [place] [address] 03/06/2024 9:30 AM EDT - 03/06/2024 10:00 AM EDT Surgery ENDO [facility], Endoscopy Room [facility] [address] [place] [phone] Kirsten Schwartz DO [address] [place] [address] COLONOSCOPY FLEXIBLE PROXIMAL DIAGNOSTIC Scheduled Procedures Name [...] filedocumented as of this encounter Advance Directives * No Code (Latest Code Status on File) Date Activated Date Inactivated Comments 05/23/2019 5:16 PM 05/24/2019 9:25 PM This order reflects the patients wishes and were consensually agreed upon. Care Teams Preschool Education Director Relationship Specialty Start Date End Date Keerthi Velásquez DO [address] [place] [address] PCP - General Family Medicine 07/29/23 documented as of this encounter
--- OUTSIDE RECORDS SUMMARY | 2023-12-24 15:55 | External Medical Summary | Summary of Care ---
Author Name Unknown Organization [facility] Address [address] [place] [address] Phone [phone] Care Team Providers Care Build Manager Name Role Phone Keerthi Cano DO Primary Care Provider [phone] Reason for Referral * Ancillary Services (Within 30 days (routine)) - Authorized Specialty Diagnoses / Procedures Referred By Contac t Referred To Contact Gastroenterology Diagnoses Special screening for malignant neoplasms, colon Keerthi Cano DO [address] [place] [address] Referral ID Status Reason Start Date Expiration Date Visits Requested Visits Authorized [id number] Authorized Ancillary Services Required 09/02/[phone] Question Answer Referral Priority Within 30 days (routine) Where should this appointment be scheduled? [facility] ALERT: Do not order for pediatric patients (18 years or younger). Cancel off screen and order PEDS GASTROENTEROLOGY CONSULT (Type: 1 visit only-Evaluate and Treat) The following Pt. Instructions are available: - Gastro Colonoscopy Prep Instructions [53971] - Gastro Colonoscopy Prep Instructions (Romansh Version) [81983] Go to the Pt. Instructions section within the Visit Navigator to access. Colonoscopy ASGE Guidelines: Average risk screening (begin at age 50, 10 year intervals) ADDITIONAL INFORMATION 1. Is the patient on Coumadin? No 2. Is the patient on Pradaxa? No Reason for Visit * Reason Comments Follow Up Encounter Details Date Type Department Care Team ([facility] st Contact Info) Description 09/02/2023 4:00 PM EST Office Visit Family Practice [address], [place] [address] [place] [phone] Keerthi Cano DO [address] [place] [address] Vestibular migraine*; Need for pneumococcal vaccination; Special [...] Male 08/05/2023 7:10 AM EST Sexual Orientation Simosn 08/05/2023 7: 10 AM EST Job Start [...] provider Abdominal pain Vomiting Date Last Reviewed: 05/14/201519996930-5754 The [employer]. [address] [place] [address]. All rights reserved. This information is not [...] History: Procedure Laterality Date INFORMATION Bilateral cataract IA APPENDECTOMY IA OPEN REPAIR OF ROTATOR CUFF ACUTE IA RPR UMBILICAL HRNA 5 YRSOR MORE REDUCIBLE [...] pneumococcal vaccination Plan: PNEUMOCOCCAL VACC, PCV20, IM ([id number]) Vaccine given. See admin record. (Z12.11) Special [...] Description 11/09/2023 8:00 AM EDT Office Visit [facility] Surgery [facility] [address] [place] [address] Lillie Solitario MD 200 [facility] [place] [address] 01/05/2024 2:20 PM EDT Office Visit Family Practice 65 [facility], [place] 293 [facility], [place] [address] Keerthi Cano DO 293 [facility] [place] [address] 02/10/2024 9:00 AM EDT Office Visit Dermatology, [place] Carmen [address] [place] [address] [place] [address] Teagan Jaramillo PA-C [address] [place] [address] [place] [address] Scheduled Referrals Name Type Priority Associated Diagnoses [...] and were consensually agreed upon. Care Teams Build Manager Relationship Specialty Start Date End Date Keerthi Cano DO [address] [place] [address] PCP - General Family Medicine 07/29/23 documented as of this encounter
--- OUTSIDE RECORDS SUMMARY | 2023-12-24 15:56 | External Medical Summary | Summary of Care ---
Author Name Unknown Organization [facility] Address [address] [place] [address] Phone [phone] Care Team Providers Care Photographic Enlarger Operator Name Role Phone Keerthi Cano DO Primary Care Provider Encounter Details Date Type Department Care Team (Late st Contact Info) Description 08/01/2023 Orders Only Family Practice [address] [place] [address] [place] [phone] Keerthi Cano DO [address] [place] [address] Allergies Active Allergy Reactions Criticality Noted Date Comments Lisinopril Cough 05/23/2019 documented as of this encounter (statuses as of 08/01/2023) Medications Medication Sig Dispensed Refills Start Date [...] the morning 90 Tablet 1 06/09/2023 Active predniSONE 20 MG Oral Tablet (Deltasone) take 3 tablets by mouth daily for 3 days, then 2 tablets daily for 3 days, then 1 tablet daily for 3 days, take with food. 18 Tablet 0 07/18/2023 Active Emtricitabine-Ten ofovir DF 200-300 MG Oral Tablet (Truvada) Take 1 Tablet by mouth in the morning. 0 07/02/2023 Active Sildenafil Citrate 100 MG Oral Tablet Take 1 Tablet by mouth as needed. 0 06/15/2023 Active Diclofenac Sodium 1 % External Gel (Voltaren) Apply topically to affected area. Apply to knees as needed 0 Active Centrum Silver 50+Men Oral Tablet Take 1 Tablet by mouth in the morning. 0 Active Systane 0.4-0.3 % Ophthalmic Solution (Artificial Tears) Instill 1 Drop into both eyes 2 times a day as needed for Dry eyes. 0 Active documented as of this encounter (statuses as of 08/01/2023) Active Problems Problem Noted Date Diagnosed Date Shigella infection 05/24/2019 Benign essential hypertension 05/23/2019 Disorder of ejaculation 05/23/2019 Obstructive sleep apnea syndrome 05/23/2019 Herpes labialis 05/23/2019 Colitis, acute 05/23/2019 documented as of this encounter (statuses as of 08/01/2023) Immunizations Name Administration Dates Next Due COVID-19 mRNA, LNP-s, No Pre serve, 2-Dose Series ([employer]) 10/09/2020,09/18/2020 Seasonal Influenza, PF, 6 M & [...] Information Value Date Recorded Sex Assigned at Not on file Gender Identity Not on file Sexual Orientation Not on file Job Start Date Occupation Industry Not on [...] No 05/23/2019 documented as of this encounter Plan of Treatment Upcoming Encounters Date Type Department Care Team (Late st Contact Info) Description 08/05/2023 8:40 AM EST Office Visit Dermatology, [place] Carmen [address] [place] [place] [address] Teagan Jaramillo PA-C [address] [place] [address] Health Maintenance Due Date Last Done Comments [...] 11/24/2031 11/23/2021 Zoster Vaccines Completed 03/18/2020, 01/09/2020 Hepatitis C Screening Completed 02/03/2022 GARDASIL-HPV IMMUNIZATION SERIES Aged Out No longer eligible b ased on patient's age to complete this topic Hepatitis B Aged Out No longer eligi ble based on patient's age to complete this topic MENINGOCOCCAL (MENACTRA/MENVEO) Aged Out No longer eligible b ased on patient's age to complete this topic documented as of this encounter Medical Devices Not on filedocumented as of this encounter Procedures Procedure Name Priority Date/Time Associated Diagnosis Comments OUTSIDE LAB-CORONAVIRUS (COVID-19) Routine 01/07/2023 CHEMISTRY-OUTSIDE Routine 02/03/2022 HEPATITIS C ANTIBODY Routine 02/03/2022 TSH Routine 02/03/2022 CTA CHEST NON-CORONARY W CONTRAST Routine 10/11/2020 CTA CHEST NON-CORONARY W CONTRAST Routine 10/09/2020 documented in this encounter Results * OUTSIDE LAB-CORONAVIRUS (COVID-19) (01/07/2023) [id number] E LAB NEGATIVE NEGATIVE OUTSIDE LAB (SEE SCANNED REPORT) 01/07/2023 History Per Patient LABORATORY OUTSIDE LAB (SEE SCANNED REPORT) * TSH (02/03/2022) TSH - OUTSIDE LAB 1.246 0.300 - 4.500 UIU/ML OUTSIDE LAB (SEE SCANNED REPORT) Blood Venous blood specimen / Unknown 02/03/2022 History Per Patient LAB BLOOD ORDERABLES Performing Organization Address City/[facility]/ZIP Co de Phone Number OUTSIDE LAB (SEE SCANNED REPORT) * HEPATITIS C ANTIBODY (02/03/2022) Blood Venous blood specimen / Unknown 02/03/2022 History Per Patient LAB BLOOD ORDERABLES Performing Organization Address City/[facility] Co de Phone Number OUTSIDE LAB (SEE SCANNED REPORT) * (ABNORMAL) CHEMISTRY-OUTSIDE (02/03/2022) Not all results display below - see scan for full detail OUTSIDE LAB (SEE SCANNED REPORT) Comment:SEE SCAN - CHEM,CALC IUM,LIPID,A1C,TSH,HEPC CREATININE-OUTSID E LAB 1.20 0.6 - 1.4 MG/DL OUTSIDE LAB (SEE SCANNED REPORT) EGFR-OUTSIDE LAB 62.6 ML/MIN OUT SIDE LAB (SEE SCANNED REPORT) POTASSIUM-OUTSIDE LAB 4.6 3.5 - 5.1 MMOL/L OUTSIDE LAB (SEE SCANNED REPORT) GLUCOSE-OUTSIDE LAB 94 70 - 99 MG/DL OUTSIDE LAB (SEE SCANNED REPORT) HOURS FASTING OUTSID E LAB (SEE SCANNED REPORT) TRIGLYCERIDES-OUT SIDE LAB 106 0 - 150 MG/DL OUTSIDE LAB (SEE SCANNED REPORT) CHOLESTEROL-OUTSI DE LAB 143 0 - 200 MG/DL OUTSIDE LAB (SEE SCANNED REPORT) HDL-OUTSIDE LAB 36(A) 40 - 60 MG/DL OUTSIDE LAB (SEE SCANNED REPORT) CHOL/HDL RATIO-OUTSIDE LAB 4.0 0 - 5 OUTSIDE LA B (SEE SCANNED REPORT) LDL (CALCULATED)-OUTS ANAYELI LAB 86 MG/DL OUTSIDE LAB (SEE SCANNED REPORT) LDL (DIRECT MEASURE)-OUTSIDE LAB OUTSIDE LAB (SEE SCANNED REPORT) HEMOGLOBIN, [id number] LAB 5.7(A) 4.5 - 5.6 % OUTSIDE LAB (SEE SCANNED REPORT) PHOSPHORUS-OUTSID E LAB OUTSIDE LAB (SEE SCANNED REPORT) PTH-OUTSIDE LAB OUTS ANAYELI LAB (SEE SCANNED REPORT) MICROALBUMIN RATIO-OUTSIDE LAB OUTSIDE LA B (SEE SCANNED REPORT) PROTEIN, UA-OUTSIDE LAB OUTSIDE LAB (SEE SCANNED REPORT) HEMOGLOBIN-OUTSID E LAB OUTSIDE LAB (SEE SCANNED REPORT) 02/03/2022 History Per Patient LABORATORY OUTSIDE LAB (SEE SCANNED REPORT) * CTA CHEST NON-CORONARY W CONTRAST (10/11/2020) Anatomical Region Laterality Modality Chest, Cardio, Body Other 10/11/2020 Raymond Arzola MD RAD CT * CTA CHEST NON-CORONARY W CONTRAST (10/09/2020) Anatomical Region Laterality Modality Chest, Cardio, Body Other 10/09/2020 Jayant Jacinto PA-C RAD CT documented in this encounter Advance Directives Latest Code Status on File Code Status Date Activated Date Inactivated Comments No Code 05/23/2019 5:16 PM 05/24/2019 9:25 PM Thi s order reflects the patients wishes and were consensually agreed upon. Care Teams Photographic Enlarger Operator Relationship Specialty Start Date End Date Keerthi Cano DO [address] [place] [address] PCP - General Family Medicine 07/29/23 documented as of this encounter
--- OUTSIDE RECORDS SUMMARY | 2023-12-24 15:56 | External Medical Summary | Summary of Care ---
Author Name Unknown Organization [facility] Address [address] [place] [address] Phone [phone] Care Team Providers Care Simplex Operator Name Role Phone Keerthi Cano DO Primary Care Provider [phone] Reason for Visit * Reason Onset Date Comments Appointment 08/01/2023 MRI Encounter Details Date Type Department Care Team (Late st Contact Info) Description 08/01/2023 Telephone Family Practice [address] [place] [address] [place] [phone] Keerthi Cano DO [address] [place] [address] Appointment (MRI) Allergies Active Allergy Reactions Criticality Noted Date [...] mRNA, LNP-s, No Pre serve, 2-Dose Series ([employer]) 10/09/2020,09/18/2020 Seasonal Influenza, PF, 6 M & [...] Telephone Encounter - Ashlee Duran OSA - 08/01/2023 9:51 AM EST Left message on machine to call to schedule MRI documented in this encounter Plan of Treatment Upcoming Encounters Date Type Department Care Team (Late st Contact Info) Description 08/01/2023 1:45 PM EST Imaging Radiology [address] [facility] [place] [id number] 08/05/2023 8:40 AM EST Office Visit Dermatology, Jarocho Carmen [address] [place] [phone] Teagan Jaramillo PA-C [address] [place] [address] 08/09/2023 3:40 PM EST Office Visit Family Practice [address], [place] [address] [place] [phone] Keerthi Cano DO [address] [place] [address] Health Maintenance Due Date Last Done Comments [...] and were consensually agreed upon. Care Teams Simplex Operator Relationship Specialty Start Date End Date Keerthi Cano DO [address] [place] [address] PCP - General Family Medicine 07/29/23 documented as of this encounter
--- OUTSIDE RECORDS SUMMARY | 2023-12-24 15:56 | External Medical Summary | Summary of Care ---
Author Name Unknown Organization [facility] Address [address] [place] [address] Phone [phone] Care Team Providers Care Bottle Selector Name Role Phone Keerthi Cano DO Primary Care Provider Reason for Visit * Reason Comments Medication Management Dosage Adjustment In Person (Anticoag Cl inic) Encounter Details Date Type Department Care Team (Late st Contact Info) Description 07/29/2023 9:50 AM [facility] Pharm[facility] Family Practice [address] [facility] [address] [place] [address] College, Pharmacist [address] [address] Encounter for long-term (current) use of medications* Allergies Active Allergy Reactions Criticality Noted Date Comments Lisinopril Cough 05/23/2019 documented as of this encounter (statuses as of 07/29/2023) Medications Medication Sig Dispensed Refills Start Date [...] with food. 18 Tablet 0 07/18/2023 Active losartan (COZAAR) 50 MG Tablet Take 1 Tab by mouth daily. 0 05/25/2016 4 Discontinue d(Medicatio n List Clean Up) celecoxib (CELEBREX) 200 MG Capsule Take 1 Capsule by mouth in the morning. 0 4 Discontinue d(Medicatio n List Clean Up) Terbinafine HCl 250 MG Oral Tablet (Lamisil) TAKE ONE TABLET BY MOUTH EVERY DAY 90 Tablet 0 01/06/2023 4 Discontinue d(Medicatio n List Clean Up) documented as of this encounter (statuses as of 07/29/2023) Active Problems Problem Noted Date Diagnosed Date Shigella infection 05/24/2019 Benign essential hypertension 05/23/2019 Disorder of ejaculation 05/23/2019 Obstructive sleep apnea syndrome 05/23/2019 Herpes labialis 05/23/2019 Colitis, acute 05/23/2019 documented as of this encounter (statuses as of 07/29/2023) Immunizations Name Administration Dates Next Due COVID-19 mRNA, LNP-s, No Pre serve, 2-Dose Series ([employer]) 10/09/2020,09/18/2020 Seasonal Influenza, PF, 6 M & [...] as of this encounter Progress Notes * Jo Andrade, Azul Lance, [facility] - 07/29/2023 8:16 AM EST Medication Therapy [facility] - Medication Reconciliation Abdi Clarke is an 68 year old being seen for medication reconciliation. Prescription insurance information: [employer] Do you have any other prescription coverage: No Preferred pharmacy: [facility] ([email or web address]) [x] Problem list reviewed [x] Allergies reviewed and updated if needed [x] Drug interaction check completed [x] HEDIS list addressed Immunizations: indicated for prevnar, flu and covid. Has been nervous since he has had these episodes since after his covid shot so wants to wait for now. Medication Organization/Adherence: Has home care nurse or caregiver: no Patient uses a pill box? Yes, refill(s) completed by self When you are at home, how often do you miss doses of medications? Less than once a week How difficult is it for you to pay for your medications? Not difficult at all How often do you experience side effects from your medications? Never Labs/Vitals/Risk Scores: The ASCVD Risk score (Iman LEE, et al., 2019) failed to calculate for the following reasons: Cannot find a previous HDL lab Cannot find a previous total cholesterol lab BP Readings from Last 3 Encounters: 07/29/23 128/72 05/24/19 100/65 No results for input(s): "HGBA1C" in the last 54588 hours. No results for input(s): "EGFR" in the last 64048 hours. Creatinine clearance cannot be calculated (Patient's most recent lab result is older than the maximum 180 days allowed.) Assessment & Plan: Medication discrepancies identified: updated per patient intake Dose/frequency of medications appropriate for current renal function? yes Other medication problems identified: having Patient education provided: regarding vaccinations, advised taking celecoxib with food Referral pended for follow up management of: N/A Summary- Changes & Recommendations: Med rec completed with patient. Repeat med rec visit in 1 year Azul Moreira RPh Clinical Pharmacist - [facility] 07/29/2023, 8:19 AM documented in this encounter Plan of Treatment Upcoming Encounters Date Type Department Care Team (Late st Contact Info) Description 08/05/2023 8:40 AM EST Office Visit Dermatology, Jarocho Carmen [address] [place] [address] Teagan Jaramillo PA-C [address] [place] [address] Health Maintenance Due Date Last Done Comments Lipid Panel 1955 Depression Screening 1967 Albumin/Creatinine Ratio 1973 Hepatitis C Screening 1973 Cologuard 2000 Colonoscopy 2000 Colorectal Cancer Screening 2000 Fecal Occult Blood Test 2000 Sigmoidoscopy 2000 Pneumococcal Vaccine: 65+ Years (1 - PCV) 2020 GFR 05/24/2020 05/24/2019, 05/23/2019 Diabetes Screening 05/24/2022 05/24/2019, 05/23/2019 Influenza Vaccine (FLU shot) (#1) 2023 05/24/2019 COVID-19 Vaccine (3 - 2022-2 4 season) 2023 10/09/2020, 09/18/2020 Postponed from 03/11/2023 (Patient Declined After Education) DTaP,Tdap,and Td Vaccines (2 - Td or [...] as of this encounter Visit Diagnoses Diagnosis Encounter for long-term (current) use of medications- Primary Encounter for long-term (current) use of other medications documented in this encounter Advance Directives Latest Code Status on File Code Status Date Activated Date Inactivated Comments No Code 05/23/2019 5:16 PM 05/24/2019 9:25 PM Thi s order reflects the patients wishes and were consensually agreed upon. Care Teams Bottle Selector Relationship Specialty Start Date End Date Keerthi Cano DO [address] [place] [address] PCP - General Family Medicine 07/29/23 documented as of this encounter
--- OUTSIDE RECORDS SUMMARY | 2023-12-24 15:56 | External Medical Summary | Summary of Care ---
Author Name Unknown Organization [facility] Address [address] [place] [address] Phone [phone] Care Team Providers Care Cashier Receptionist Name Role Phone Keerthi Cano DO Primary Care Provider Reason for Referral * Precert (Within 10 days (routine)) - Pending Review Specialty Diagnoses / Procedures Referred By Contac t Referred To Contact Radiology Diagnoses Near syncope Other headache syndrome Dizziness Procedures MRI INTERNAL AUDITORY CANAL W WO CONTRAST Keerthi Cano DO [address] [place] [address] Referral ID Status Reason Start Date Expiration Date V isits Requested Visits Authorized [id number] Pending Review 07/29/2023 999 999 * Evaluate & Treat - Unlimited Visits (Within 3 days (urgent)) - Authorized Specialty Diagnoses / Procedures Referred By Contsania t Referred To Contact Dermatology Diagnoses Non-healing skin lesion Keerthi Cano DO [address] [place] [address] Referral ID Status Reason Start Date Expiration Date Visits Requested Visits Authorized [id number] Authorized Specialty Services Required 07/29/2023 999 999 Question Answer Referral Priority Within 3 days (urgent) Where should this appointment be scheduled? [facility] Are you referring the patient for Mohs Surgery and have a current positive skin cancer biopsy result? No What is the reason for the patient referral? Rash/Skin Check/Eval of Lesion or Mole Reason for Visit * Reason Comments NEW PATIENT Encounter Details Date Type Department Care Team (Late st Contact Info) Description 07/29/2023 10:00 AM EST Office Visit Family Practice [address], [place] [address] [place] [address] Keerthi Cano, DO [address] [place] [address] Essential hypertension with goal blood pressure less than 140/90*; Non-healing skin lesion; Near syncope; Dizziness; Other headache syndrome; Chronic pain of right knee; Open-angle glaucoma, unspecified glaucoma stage, unspecified laterality, unspecified open-angle glaucoma type; Risk and functional assessment Allergies Active Allergy Reactions Criticality Noted Date [...] with food. 18 Tablet 0 07/18/2023 Active Emtricitabine-T enofovir DF 200-300 MG Oral [...] as needed for Dry eyes. 0 Active losartan (COZAAR) 50 MG Tablet Take [...] No Pre serve, 2-Dose Series (Pfizer) 10/09/2020,09/18/2020 Seasonal Influenza, PF, 6 M & [...] Sign Reading Time Taken Comments Blood Pressure 128/72 07/29/2023 10:18 AM EST Pulse 88 07/29/2023 10:18 AM EST Temperature 36.1 C (97 F) 07/29/2023 10:18 AM EST Respiratory Rate 14 07/29/2023 10:18 AM EST Oxygen Saturation 96% 07/29/2023 10:18 AM EST Inhaled Oxygen Concentration - - Weight 89.1 kg (196 lb 8 oz) 07/29/2023 10:18 AM EST Height 177.8 cm (5' 10") 07/29/2023 10:18 AM EST Body Mass Index 28.19 07/29/2023 10:18 AM EST documented in this [...] * Patient Instructions* Yu Arora LPN - 07/29/2023 10:29 AM EST Patient Instructions - Fall Prevention (This education is for all patients over 65 regardless of symptoms) Remember to take your current medications as prescribed. In order to prevent falls, you are encouraged to: Exercise Utilize assistive/adaptive devices Avoid multifocal lenses when walking Avoid hazards in home Maintain a regular toileting schedule Any questions please contact our office. Preventing Falls in the Home (This education is for all patients over 65 regardless of symptoms) As you get older, falls are more likely. Thats because your reaction time slows. Your muscles and joints may also get stiffer, making them less flexible. Illness, medications, and vision changes can also affect your balance. A fall could leave you unable to live on your own. To make your home safer, follow these tips: Floors Put nonskid pads under area rugs Remove throw rugs Replace worn floor coverings Tack carpets firmly to each step on carpeted stairs. Put nonskid strips on the edges of uncarpeted stairs Keep floors and stairs free of clutter and cords Arrange furniture so there are clear pathways Clean up any spills right away Bathrooms Install grab bars in the tub or shower Apply nonskid strips or put a nonskid rubber mat in the tub or shower Sit on a bath chair to bathe Use bathmats with nonskid backing Lighting Keep a flashlight in each room Put a nightlight along the pathway between the bedroom and the bathroom [employer]ige Patient Education Copyright 2008 - 2010 [employer] except where otherwise noted Preventing Falls: Exercises to Improve Balance, Flexibility, Strength, and Staying Power (This education is for all patients over 65 regardless of symptoms) Certain types of exercises may help make you less likely to fall. Try the ones below. Or do other exercises that your healthcare provider suggests. Depending on your health, you may need to start slowly. Dont let that stop you. Even small amounts of exercise can help you. Be sure to talk to yourhealthcare provider before starting any exercise program. Improve Balance Many types of exercise can help improve balance. Dawson chi and yoga are good examples. Heres another one to try. You can do it anytime and almost anywhere. Stand next to a counter or solid support. Push yourself up onto your tiptoes. Hold for 5 seconds. If you start to lose your balance, hold on to the counter. Rest and repeat 5 times. Work up to holding for 20 to 30 seconds, if you can. Increase Flexibility Being more flexible makes it easier for you to move around safely. Try exercises like the seated hamstring stretch. Sit in a chair and put one foot on a stool. Straighten your leg and reach with both hands down either side of your leg. Reach as far down your leg as you can. Hold for about 20 seconds. Go back to the starting position. Then repeat 5 times. Switch legs. Build Strength Resistance exercises help build strength. You can do them without equipment. Or you can use weights, elastic bands, or special machines. One such exercise is called the biceps curl. You can hold a 1 pound weight or even a can of soup. Do this exercise at least 3 times a week. Strive for everyday. Sit up straight in a chair. Keep your elbow close to your body and your wrist straight. Bend your arm, moving your hand up to your shoulder. Then slowly lower your arm. Repeat 5 times. Switch to the other arm. Build Your Staying Power Aerobic exercises make your heart and lungs stronger so you can keep moving longer. Walking and swimming are two of the best types of exercises you can do. Using a stationary bike is great, too. Find an aerobic exercise that you enjoy. Start slowly and build up. Even 5 minutes is helpful. Aimfor a goal of 30 minutes, at least 3 times a week. You dont have to do 30 minutes in one session. Break it up and walk a little throughout the day. More Helpful Tips Start easy. Slowly work up to doing more. Talk with your healthcare provider about the best exercises for you. Call senior centers or health clubs about exercise programs. If needed, have a family member watch you walk every so often to check your stability. Exercise with a friend. Choose an activity you both enjoy. Try exercises that you can do anytime, anywhere. Here are two examples. Have someone with you when you first try these: Practice walking by placing one foot right in front of the other. Stand up and sit down 10 times. Repeat this throughout the day. Paige Patient Education Copyright 2009 - 2010 [employer] except where otherwise noted. Preventing Falls: Moving Safely Using a Cane or Walker (This education is for all patients over 65 regardless of symptoms) Keep the cane away from your feet so you dont trip. A walking aid, such as a cane or walker, can help you stay more independent and avoid falls. Remember to keep your walking aid within easy reach when youre in a chair or in bed. And learn how to use it safely so you dont injure yourself. Using a Cane If you have a stronger side, hold the cane on that side. Get your balance. Move the cane and your weaker leg forward. Support your weight on both the cane and your weaker side. Step with your stronger leg. Start again from step 1. If youre using a folding walker, be sure you know how to lock it open. Check that its locked open before each use. Using a Walker Roll the walker (or lift it, if youre using one without wheels) forward about 12 inches. Step forward with your weaker leg first. Use the walker to help keep your balance. Bring your other foot forward to the center of the walker. Start again from step 1. Helpful Tips Check with your healthcare provider about the right walking aid to use. Ask about a walker with a seat attached. Check the tips of your cane or walker to make sure they have nonskid covers. Move slowly from room to room. Dont baugh. Sit down to get dressed. Use a andrew pack or backpack to keep your hands free. Get help for jobs that mean climbing, even on a stepstool. Paige Patient Education Copyright 2008 - 2010 [employer] except where otherwise noted. Treating Urinary Incontinence in Men (This education is for all patients over 65 regardless of symptoms) You can't always control the release of urine. You may leak urine. Or you may not be able to hold your urine until you can get to a bathroom. This is called urinary incontinence. The problem can be managed. Talk to your doctor about your treatment options. Taking Medications Prescription medications may help you. They may: Help the sphincter to work better. (This is the muscle that closes to keep urine from leaking out of the bladder.) Help stop the bladder from reji too often to push urine out. Help the bladder muscles contract with more force. Help relax the sphincter muscle and allow urine to flow more freely. Making Changes to Your Routine Certain changes in your daily routine may help. These include: Avoiding caffeine and alcohol. Using timed voiding. This is following a schedule for drinking fluids and urinating. Doing Kegel exercises daily. These exercises involve tightening the muscles in your sphincter and around your bladder to help strengthen them. Your doctor can explain how to do them. Using a Catheter A catheter is a narrow tube that is inserted through the urethra into the bladder. It drains urine.A condom catheter covers the penis. It channels urine into a collection bag. It is worn most of thetime. Intermittent catheterization means inserting a catheter to drain the bladder, then removing it. This is done on a regular schedule. Having Surgery If other options don't work, surgery may be recommended. If surgery is an option, your healthcare provider can discuss it with you and explain its risks and benefits. Healing After Prostate Surgery Surgery on the prostate gland can cause incontinence. Most often, the incontinence is only for a short time. It clears up when healing is complete. Very rarely, prostate surgery can result in permanent incontinence. documented in this encounter Progress Notes * Vale Cooper RN - 07/29/2023 12:04 PM EST Zio patch applied-serial # [id number]. Pt to wear x 14 days. * Azul Delgado [facility] - 07/29/2023 10:04 AM EST [facility] Possible equilibrium issue that is being worked up? October 2020 had episode at the gym and almost passed out. Had cardio and neuro workups but all came up negative. Has continued - Eye sight gets blurry and peripheral vision goes - eventually gets mentally foggy and then feels like on a boat when helays down at night. Having some of that today. Skin patch on L arm, back and a few on face. PCP started on prednisone as of 07/21 for 9 days. Aheadof seeing PCP had been using steroid creams and eczema lotions as well for 4-6 weeks. Brother has issues with eczema. Knee pain - was started on diclofenac. Electronically signed by Azul Delgado [facility] at 08/01/2023 9:52 AM EST * Keerthi Cano DO - 07/29/2023 9:49 AM EST SUBJECTIVE: Chief Complaint Patient presents with NEW PATIENT HPI: Abdi Clarke is a 68 year old male who presents today to establish care. [facility] was [facility]. Pt states that he had a COVID vaccine in 2020 and he was at the gym two days later and he was sitting on the floor the next thing he knew. He notes that he ended up in the hospital. He had the secondvaccine while in the hospital. He was seen by neurology and cardiology. He states that the neurologist did not see any issue. He said that cardiology said there may be an issue if it persisted. He notes that he will get peripheral vision issues and then his equilibrium will be off. He will feel like things are fuzzy. He states that it is irritating. He states if it is bad at night, it is like being on a raft in the ocean. He states that he had a good summer and fall with no episode. He states that then two Saturdays ago, he had symptoms. He states that his PCP told him that things fell through the cracks so he came here. He had an EMG yesterday and was told it was normal. He said he was told there was no other testing to do. He notes that these will stretch over a couple of days. He states that being still is helpful. He tries to avoid peripheral stimulation. He notes he will get more dizzy with stimulation. He states it will feel like he is on a strong medication, the room will move a bit. He feels that his balance is off but it is not. He would avoid driving when he had these episodes initially. He does get headaches with them. No nausea. He notes being still helps because he isless stimulated. He notes no hearing issues. No ringing in his ears. He has been to the eye doctor and there are no issues. He gets some sparkles or blinking in his vision, mostly when they are closed. He is seen every 6 months. Pt notes that he started to get a few small areas of skin issues. They are small patches that started in the last 6 months. They are itchy. They are scaly. He notes the forehead and the cheek were more scaly than visibly noticeable for a period of time. He thinks that the prednisone has helped withthis. Pt is on Truvada for PrEP. He has lab studies done quarterly. He has not tested positive for HIV. Pt has some issues with right knee pain. He had a previous injury. He feels that it has never quitegone completely back to normal. He notes that it is primarily on the sides of his knee cap. More soif he were to run. 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 Ammonium Lactate 12 % External Cream (Lac-Hydrin) apply to the bottoms of feet daily 280 g 3 Celecoxib 200 MG Oral Capsule (CeleBREX) 200 mg orally daily in the morning for Osteoarthritis of hand 90 Capsule 1 Losartan Potassium 50 MG Oral Tablet (Cozaar) take 1 tablet by mouth daily in the morning 90 Tablet1 predniSONE 20 MG Oral Tablet (Deltasone) take 3 tablets by mouth daily for 3 days, then 2 tablets daily for 3 days, then 1 tablet daily for 3 days, take with food. 18 Tablet 0 Emtricitabine-Tenofovir DF 200-300 MG Oral Tablet (Truvada) Take 1 Tablet by mouth in the morning. Sildenafil Citrate 100 MG Oral Tablet Take 1 Tablet by mouth as needed. Diclofenac Sodium 1 % External Gel (Voltaren) Apply topically to affected area. Apply to knees as needed Centrum Silver 50+Men Oral Tablet Take 1 Tablet by mouth in the morning. Systane 0.4-0.3 % Ophthalmic Solution (Artificial Tears) Instill 1 Drop into both eyes 2 times a day as needed for Dry eyes. Respiratory Therapy Supplies ERIC Use as directed at bedtime. BiPAP No current facility-administered medications for this visit. No past medical history on file. No past surgical history on file. Review of patient's allergies indicates: Allergen Reactions Lisinopril Cough No family history on file. No family status information on file. Social History Tobacco Use Smoking status: Never Smokeless tobacco: Never Substance Use Topics Alcohol use: Not Currently Vaping/E-Cigarette Use Vaping/E-Cigarette Substances Vaping/E-Cigarette Devices REVIEW OF SYSTEMS: Review of Systems Constitutional: Negative for chills, fatigue, fever and unexpected weight change. HENT: Negative for congestion, ear pain, rhinorrhea, sinus pressure, sinus pain and sore throat. Eyes: Positive for visual disturbance. Negative for discharge and redness. Respiratory: Negative for cough, chest tightness, shortness of breath and wheezing. Cardiovascular: Negative for chest pain, palpitations and leg swelling. Gastrointestinal: Negative for abdominal pain, constipation, diarrhea, nausea and vomiting. Musculoskeletal: Positive for arthralgias. Negative for gait problem and joint swelling. Skin: Negative for color change, pallor and rash. Neurological: Positive for dizziness and headaches. OBJECTIVE: BP 128/72 (BP Site: Left Arm, BP Position: Sitting, BP Cuff Size: Regular) | Pulse 88 | Temp 36.1 C (97 F) (Tympanic) | Resp 14 | Ht 1.778 m (5' 10") | Wt 89.1 kg (196 lb 8 oz) | SpO2 96% | BMI 28.19 kg/m | BSA 2.1 m PHYSICAL EXAM: Physical Exam Constitutional: General: He is not in acute distress. Appearance: He is well-developed. HENT: Head: Normocephalic and atraumatic. Right Ear: Tympanic membrane, ear canal and external ear normal. Left Ear: Tympanic membrane, ear canal and external ear normal. Nose: Nose normal. No mucosal edema or rhinorrhea. Mouth/Throat: Pharynx: No oropharyngeal exudate. Eyes: General: No scleral icterus. Conjunctiva/sclera: Conjunctivae normal. Pupils: Pupils are equal, round, and reactive to light. Neck: Thyroid: No thyromegaly. Cardiovascular: Rate and Rhythm: Normal rate and regular rhythm. Heart sounds: No murmur heard. No friction rub. No gallop. Pulmonary: Effort: No respiratory distress. Breath sounds: Normal breath sounds. No wheezing, rhonchi or rales. Chest: Chest wall: No tenderness. Abdominal: General: Bowel sounds are normal. Palpations: Abdomen is soft. There is no mass. Tenderness: There is no abdominal tenderness. There is no guarding. Musculoskeletal: General: No tenderness or deformity. Normal range of motion. Cervical back: Normal range of motion and neck supple. Comments: Unable to elicit significant discomfort of right knee today Lymphadenopathy: Cervical: No cervical adenopathy. Skin: General: Skin is warm and dry. Findings: Lesion (left forearm and back- raised red and rough) present. No rash. Neurological: Mental Status: He is alert and oriented to person, place, and time. Psychiatric: Speech: Speech normal. Behavior: Behavior normal. Thought Content: Thought content normal. ASSESSMENT/PLAN: (I10) Essential hypertension with goal blood pressure less than 140/90 (primary encounter diagnosis) Plan: BP controlled. He is on losartan 50mg. No changes for now. (L98.9) Non-healing skin lesion Plan: DERMATOLOGY REFERRAL OP Concern for skin cancer of forearm and back. Derm referral placed. (R55) Near syncope (R42) Dizziness (G44.89) Other headache syndrome Plan: EXTERNAL EKG 8 TO 15 DAYS, MRI INTERNAL AUDITORY CANAL W WO CONTRAST Pt with previously disjointed and incomplete work-up. Check Zio. Given symptoms, will check MRI of IAC. I suspect vestibular migraine but will await results of further work-up. (M25.561, G89.29) Chronic pain of right knee Plan: XR KNEE 4 OR MORE VIEWS Will check x-ray. Had previous injection with orthopedics. (H40.10X0) Open-angle glaucoma, unspecified glaucoma stage, unspecified laterality, unspecified open-angle glaucoma type Plan: pt will keep f/u with eye doctor. Had previous procedure. (Z13.9) Risk and functional assessment Plan: See nursing note. Follow-up: after MRI Total time today including reviewing chart before the visit, pertinent labs, imaging reports, face to face time, and documentation time was 48 minutes. Keerthi Cano DO documented in this encounter Nursing Notes * Yu Arora LPN - 07/29/2023 10:24 AM EST Patient here to establish as a new patient. Patient reports he is experiencing some episodes with changes in eyesight and equilibrium. States it has been going on for a couple of years now. EEG yesterday - states came back normal. States he has a little dizziness. States can be severe or just bothersome. States it can be bad when he lays down at night. States he has seen cardiology. Doesn't feel t hat his PCP was addressing his issues. States he has seen ENT in the past also. documented in this encounter Plan of Treatment Upcoming Encounters Date Type Department Care Team (Late st Contact Info) Description 08/05/2023 8:40 AM EST Office Visit Dermatology, [facility] [address] [address] [place] [address] Teagan Jaramillo PA-C [address] [place] [address] [place] [id number] Scheduled Orders Name Type Priority Associated Diagnoses Orde r Schedule EXTERNAL EKG 8 TO 15 DAYS Holter Routine Near syncope Expected: 07/30/2023 (Approximate), Expires: 07/29/2024 MRI INTERNAL AUDITORY CANAL W WO CONTRAST Medical Imaging Routine Near syncope Other headache syndrome Dizziness Ordered: 07/29/2023 Scheduled Referrals Name Type Priority Associated Diagnoses Orde r Schedule DERMATOLOGY REFERRAL OP Referral Within 3 days (urgent) Non-healing skin lesion Ordered: 07/29/2023 Health Maintenance Due Date Last Done Comments [...] Procedure Name Priority Date/Time Associated Diagnosis Comments XR KNEE 4 OR MORE VIEWS Routine 07/29/2023 12:06 PM EST Chronic pain of right knee documented in this encounter Results * XR KNEE 4 OR MORE VIEWS (07/29/2023 12:06 PM EST) Anatomical Region Laterality Modality Knee, Lower Extremity Digital Ra diography 07/29/2023 6:40 PM EST Impressions 07/29/2023 6:38 PM EST IMPRESSION 1. No acute RT KNEE osseous finding. Narrative 07/29/2023 6:38 PM EST EXAM RT KNEE XR KNEE 4 OR MORE VIEWS - 07/29/2023 12:06 pm HISTORY right knee pain COMPARISON None TECHNIQUE Radiography of the RT KNEE was performed. FINDINGS No acute fracture or dislocation. Mild tricompartmental osteoarthritis. Quadriceps tendinosis. Procedure Note Hans Gonzalez MD - 07/29/2023 EXAM RT KNEE XR KNEE 4 OR MORE VIEWS - 07/29/2023 12:06 pm HISTORY right knee pain COMPARISON None TECHNIQUE Radiography of the RT KNEE was performed. FINDINGS No acute fracture or dislocation. Mild tricompartmental osteoarthritis.Quadriceps tendinosis. IMPRESSION IMPRESSION 1. No acute RT KNEE osseous finding. Keerthi Cano DO RADIOLOGY (RAD GENER AL) documented in this encounter Visit Diagnoses Diagnosis Essential hypertension with goal blood pressure less than 140/90- Primary Non-healing skin lesion Unspecified disorder of skin and subcutaneous tissue Near syncope Syncope and collapse Dizziness Dizziness and giddiness Other headache syndrome Chronic pain of right knee Open-angle glaucoma, unspecified glaucoma stage, unspecified laterality, unspecified open-angle glaucoma type Risk and functional assessment Screening for unspecified condition documented in this encounter Advance Directives Latest Code Status on File Code Status Date Activated Date Inactivated Comments No Code 05/23/2019 5:16 PM 05/24/2019 9:25 PM Thi s order reflects the patients wishes and were consensually agreed upon. Care Teams Cashier Receptionist Relationship Specialty Start Date End Date Keerthi Cano DO [address] [place] [address] PCP - General Family Medicine 07/29/23 documented as of this encounter
--- OUTSIDE RECORDS SUMMARY | 2023-12-24 15:56 | External Medical Summary | Summary of Care ---
Author Name Unknown Organization [facility] Address [address] [place] [address] Phone [phone] Care Team Providers Care General Cargo Clerk Name Role Phone Keerthi Cano DO Primary Care Provider Reason for Visit * Reason Onset Date Comments Appointment 08/01/2023 MRI Encounter Details Date Type Department Care Team (Late st Contact Info) Description 08/01/2023 Telephone Family Practice [address] [place] [address] [place] [id number] Keerthi Cano DO [address] [place] [address] Appointment (MRI) Allergies Active Allergy Reactions Criticality [...] mRNA, LNP-s, No Pre serve, 2-Dose Series ([employer]) 10/09/2020,09/18/2020 Seasonal Influenza, PF, 6 M & [...] [address] [place] [address] [place] [address] Teagan Jaramillo PA-C [address] [place] [address] Health Maintenance Due Date Last Done Comments [...] and were consensually agreed upon. Care Teams General Cargo Clerk Relationship Specialty Start Date End Date Keerthi Cano DO [address] [place] [address], [place] [address] PCP - General Family Medicine 07/29/23 documented as of this encounter
--- OUTSIDE RECORDS SUMMARY | 2023-12-24 15:56 | External Medical Summary | Summary of Care ---
Author Name Unknown Organization [facility] Address [address] [place] [address] Phone [phone] Care Team Providers Care Airplane Designer Name Role Phone Keerthi Cano DO Primary Care Provider [phone] Reason for Referral * Precert (Within 10 days (routine)) - Pending Review Specialty Diagnoses / Procedures Referred By Contac t Referred To Contact Radiology Diagnoses Near syncope Other headache syndrome Dizziness Procedures MRI INTERNAL AUDITORY CANAL W WO CONTRAST Keerthi Cano DO [address] [place] [address] Referral ID Status Reason Start Date Expiration Date V isits Requested Visits Authorized [id number] Pending Review 07/29/2023 999 999 * Evaluate & Treat - Unlimited Visits (Within 3 days (urgent)) - Authorized Specialty Diagnoses / Procedures Referred By Contsania t Referred To Contact Dermatology Diagnoses Non-healing skin lesion Keerthi Cano DO [address] [place] [address] Referral ID Status Reason Start Date Expiration Date Visits Requested Visits Authorized [id number] Authorized Specialty Services Required 07/29/2023 999 999 [...] EST Office Visit Family Practice [address], [place] 293 [facility] [place] [address] Keerthi Cano, DO 293 [place] [address] Essential hypertension with goal blood pressure less [...] Paige Patient Education Copyright 2008 - 2010 [employer] except where otherwise noted. Treating Urinary Incontinence [...] 12:04 PM EST Zio patch applied-serial # [id number]. Pt to wear x 14 days. * Azul Delgado [facility] - 07/29/2023 10:04 AM EST [facility] Possible equilibrium issue that is being worked [...] Knee pain - was started on diclofenac. * Keerthi Cano DO - 07/29/2023 9:49 AM EST SUBJECTIVE: Chief Complaint Patient presents with NEW PATIENT HPI: Abdi Clarke is a 68 year old male who presents today to establish care. [facility] Pt states that he had a COVID [...] 08/05/2023 8:40 AM EST Office Visit Dermatology, [address] [facility] [address] [place] [address] [place] [address] Teagan Jaramillo PA-C [address] [place] [address] [place] [address] 08/26/2023 11:15 AM EST Imaging Radiology [facility] 1st [facility], [place] [address] [facility] [place] [address] 09/02/2023 4:00 PM EST Office Visit Family Practice [address], [place] [address] [place] [address] Keerthi Cano DO [address] [place] [address] Scheduled Orders Name Type Priority Associated Diagnoses [...] and were consensually agreed upon. Care Teams Airplane Designer Relationship Specialty Start Date End Date Keerthi Cano DO [address] [place] [address] PCP - General Family Medicine 07/29/23 documented as of this encounter
--- OUTSIDE RECORDS SUMMARY | 2023-12-24 15:56 | External Medical Summary | Summary of Care ---
Author Name Unknown Organization [facility] Address [address] [place] [address] Phone [phone] Care Team Providers Care Boiler Operators Supervisor Name Role Phone Keerthi Cano DO Primary Care Provider [phone] Reason for Referral * Evaluate & Treat - Unlimited Visits (Within 30 days (routine)) - Authorized Specialty Diagnoses / Procedures Referred By Francisco harding Referred To Contact Dermatology Diagnoses Basal cell carcinoma of skin of nose Teagan Jaramillo PA-C [address] [place] [address] Referral ID Status Reason Start Date Expiration Date Visits Requested Visits Authorized [id number] Authorized Specialty Services Required 08/10/2023 1 1 Question Answer Referral Priority Within 30 days (routine) Are you referring the patient for Mohs Surgery and have a current positive skin cancer biopsy result? Yes Where should this appointment be scheduled? August Type of Procedure MOHS Surgery Reason for Visit * Reason Onset Date Comments Referral 08/10/2023 Encounter Details Date Type Department Care Team (Late st Contact Info) Description 08/10/2023 Telephone Dermatology, [place] [address] [place] [address] [place] [address] Teagan Jaramillo PA-C [address] [place] [address] [place] [address] Referral Allergies Active Allergy Reactions Criticality Noted Date Comments Lisinopril Cough 05/23/2019 documented as of this encounter (statuses as of 08/11/2023) Medications Medication Sig Dispensed Refills Start Date [...] as of this encounter (statuses as of 08/11/2023) Active Problems Problem Noted Date Diagnosed Date Open-angle glaucoma 08/01/2023 Open-angle glaucoma 08/01/2023 Shigella infection 05/24/2019 Essential hypertension with goal blood pressure less than 140/90 05/23/2019 Disorder of ejaculation 05/23/2019 Obstructive sleep apnea syndrome 05/23/2019 Herpes labialis 05/23/2019 Colitis, acute 05/23/2019 documented as of this encounter (statuses as of 08/11/2023) Immunizations Name Administration Dates Next Due COVID-19 mRNA, LNP-s, No Pre serve, 2-Dose Series ([employer]) 10/09/2020,09/18/2020 Seasonal Influenza, PF, 6 M & [...] encounter Miscellaneous Notes * Telephone Encounter - Debo Maravilla, RICHARD - 08/11/2023 9:13 AM EST Spoke to patient and scheduled for mohs with DR Solitario for 11/08 at 8am. Will mail a mohs packet. * Telephone Encounter - Teagan Jaramillo PA-C - 08/10/2023 11:18 AM EST B. Skin, right nose, shave: Basal cell carcinoma, at least nodular type documented in this encounter Plan of Treatment Upcoming Encounters Date Type Department Care Team (Late st Contact Info) Description 08/26/2023 11:15 AM EST Imaging Radiology [address] 132 [facility] [place] [address] 09/02/2023 4:00 PM EST Office Visit Family Practice [facility] 293 [place] [address] Keerthi Cano DO 293 [place] [address] 11/09/2023 8:00 AM EDT Office Visit [facility] [address] [place] [address] Lillie Solitario MD [address] [place] [address] 02/10/2024 9:00 AM EDT Office Visit Dermatology, [place] [address] [place] [address] Teagan Jaramillo PA-C [address] [place] [address] [place] [address] Scheduled Referrals Name Type Priority Associated Diagnoses [...] Diagnosis Basal cell carcinoma of skin of nose- Primary Basal cell carcinoma of skin of other and unspecified parts of face documented in this encounter Advance Directives Latest Code Status on File Code Status Date Activated Date Inactivated Comments No Code 05/23/2019 5:16 PM 05/24/2019 9:25 PM Thi s order reflects the patients wishes and were consensually agreed upon. Care Teams Boiler Operators Supervisor Relationship Specialty Start Date End Date Keerthi Cano DO [address] [place] [address] PCP - General Family Medicine 07/29/23 documented as of this encounter
--- OUTSIDE RECORDS SUMMARY | 2023-12-24 15:56 | External Medical Summary | Summary of Care ---
Author Name Unknown Organization [facility] Address [address] [place] [address] Phone [phone] Care Team Providers Care Brand Designer Name Role Phone Keerthi Cano DO Primary Care Provider [phone] Reason for Visit * Reason Comments NEW PATIENT PCP referred for sev eral skin lesions on face, L forearm, and back. * Evaluate & Treat - Unlimited Visits (Within 3 days (urgent)) - Authorized Specialty Diagnoses / Procedures Referred By Francisco harding Referred To Contact Dermatology Diagnoses Non-healing skin lesion Keerthi Cano DO [address] [place] [address] Referral ID Status Reason Start Date Expiration Date Visits Requested Visits Authorized [id number] Authorized Specialty Services Required 07/29/2023 999 999 Encounter Details Date Type Department Care Team (Late st Contact Info) Description 08/05/2023 8:40 AM EST Office Visit Dermatology, [place] a[facility]en [address] [facility] [address] [place] [address] Teagan Jaramillo PA-C 27 [facility] [address] [place] [address] Neoplasm of uncertain behavior of skin*; AK (actinic keratosis) Allergies Active Allergy Reactions Criticality Noted Date Comments Lisinopril Cough 05/23/2019 documented as of this encounter (statuses as of 08/05/2023) Medications Medication Sig Dispensed Refills Start Date [...] as needed for Dry eyes. 0 Active predniSONE 20 MG Oral Tablet (Deltasone) take 3 tablets by mouth daily for 3 days, then 2 tablets daily for 3 days, then 1 tablet daily for 3 days, take with food. 18 Tablet 0 07/18/2023 4 Discontinue d(Patient preference/ discontinua tion) documented as of this encounter (statuses as of 08/05/2023) Active Problems Problem Noted Date Diagnosed Date Open-angle glaucoma 08/01/2023 Open-angle glaucoma 08/01/2023 Shigella infection 05/24/2019 Essential hypertension with goal blood pressure less than 140/90 05/23/2019 Disorder of ejaculation 05/23/2019 Obstructive sleep apnea syndrome 05/23/2019 Herpes labialis 05/23/2019 Colitis, acute 05/23/2019 documented as of this encounter (statuses as of 08/05/2023) Immunizations Name Administration Dates Next Due COVID-19 mRNA, LNP-s, No Pre serve, 2-Dose Series ([facility]) 10/09/2020,09/18/2020 Seasonal Influenza, PF, 6 M & [...] as of this encounter Progress Notes * Teagan Jaramillo PA-C - 08/05/2023 8:50 AM EST SUBJECTIVE: HPI: Abdi Clarke is a 68 year old male seen as a new patient for evaluation and treatment of facial lesions. Several spots on the face, left arm and back x almost 1 year. Itchy and scaly. Has tried applying triple antibiotic and eczema creams, gets some relief with the itching but they never heal. Patient alone today. DERMATOLOGIC HISTORY: H/o skin cancer: None H/o skin disorders: None Sunscreen use: Sometimes H/o tanning bed use: None FAMILY HISTORY: Skin cancer: Father, brother - unsure type Skin disorders: None SOCIAL HISTORY: Retired - medical officer psychiatry REVIEW OF SYSTEMS: SKIN: No other new or changing moles. HEME/LYMPH: No new or enlarging lumps or bumps. CONSTITUTIONAL: No nausea, vomiting, fevers, chills, diarrhea. No recent unintended weight loss, night sweats, appetite or malaise. Past Medical History: Diagnosis Date Hypertension Neuropathy Osteoarthritis Patien t Active Problem List Diagnosis Code Essential hypertension with goal blood pressure less than 140/90 I10 Disorder of ejaculation N53.19 Obstructive sleep apnea syndrome G47.33 Herpes labialis B00.1 Colitis, acute K52.9 Shigella infection A03.9 Open-angle glaucoma H40.10X0 Open-angle glaucoma H40.10X0 MEDICA TIONS: Current Outpatient Medications Medication Sig Dispense Refill [...] a day as needed for Dry eyes. No current facility-administered medications for this visit. ALLERG Y: Lisinopril OBJECTIVE: GEN: Healthy, alert, no distress, appears oriented, pleasant, and cooperative. SKIN: Detailed exam of hair, face including lids and lips, neck, back, chest, abdomen, right and left upper extremities, right and left lower extremities including the nails and digits completed and are normal except: 1. Central mid back - 1.8 cm pink plaque 2. Right nose - 3 mm pink eroded papule 3. Left forearm - 8 mm hyperkeratotic pink papule 4. Face - several rough pink scaling papules ASSESSMENT/PLAN: 1. Favor basal cell carcinoma vs squamous cell carcinoma in situ - Removal by shave: 1 lesion(s) removed Location(s): central mid back Removal by shave was recommended which the patient was agreeable to. The risks, benefits, indications, alternatives, and complications were discussed, and informed consent was obtained. Specifically,the expectation of a permanent scar and risk of possible infection were explained and understood. If the procedure were to be declined, the lesion could not be evaluated microscopically for diagnosisor abnormality, including cancer. A pre-procedure time-out was performed to verify the procedure, site and appropriate supplies. We cleaned the site(s) with alcohol and anesthetized with less than 3 mL of 0.5% lidocaine with epinephrine at 1:200,000 concentration. Removal via horizontal technique was performed. Curettage performed for cure. Hemostasis was obtained with aluminum chloride. Petrolatum and bandage were applied. The patient tolerated the procedure well without complications and withminimal blood loss. Written wound care instructions were given. Specimen(s) sent to pathology. We will call with results and arrange appropriate follow-up care as indicated. Size of lesion: 1.8 cm Size of wound after curettage: 1.6 cm 2. Basal cell carcinoma vs squamous cell carcinoma vs actinic keratosis - Biopsy by shave: 1 lesion(s) biopsied Location(s): right nose Biopsy by shave was recommended which the patient was agreeable to. The risks, benefits, indications, alternatives, and complications were discussed, and informed consent was obtained. Specifically, the expectation of a permanent scar and risk of possible infection were explained and understood. Ifthe procedure were to be declined, the lesion could not be evaluated microscopically for diagnosis or abnormality, including cancer. A pre-procedure time-out was performed to verify the procedure, site and appropriate supplies. We cleaned the site(s) with alcohol and anesthetized with less than 3 mL of 0.5% lidocaine with epinephrine at 1:200,000 concentration. Biopsy via horizontal technique was performed. Hemostasis was obtained with aluminum chloride. Petrolatum and bandage were applied. Thepatient tolerated the procedure well without complications and with minimal blood loss. Written wound care instructions were given. Specimen(s) sent to pathology. We will call with biopsy results and arrange appropriate follow-up care as indicated. 3. Hyperkeratotic actinic keratosis vs squamous cell carcinoma in situ vs basal cell carcinoma - Removal by shave: 1 lesion(s) removed Location(s): left forearm Removal by shave was recommended which the patient was agreeable to. The risks, benefits, indications, alternatives, and complications were discussed, and informed consent was obtained. Specifically,the expectation of a permanent scar and risk of possible infection were explained and understood. If the procedure were to be declined, the lesion could not be evaluated microscopically for diagnosisor abnormality, including cancer. A pre-procedure time-out was performed to verify the procedure, site and appropriate supplies. We cleaned the site(s) with alcohol and anesthetized with less than 3 mL of 0.5% lidocaine with epinephrine at 1:200,000 concentration. Removal via horizontal technique was performed. Curettage performed for cure. Hemostasis was obtained with aluminum chloride. Petrolatum and bandage were applied. The patient tolerated the procedure well without complications and withminimal blood loss. Written wound care instructions were given. Specimen(s) sent to pathology. We will call with results and arrange appropriate follow-up care as indicated. Size of lesion: 8 mm Size of wound after curettage: 1.6 cm 4. Actinic Keratoses - A total of 4 lesion(s) were treated with cryotherapy. - The patient was counseled on the premalignant nature of these lesions, and they were treated withcryotherapy today which the patient is agreeable to. The risks, benefits, indications, alternatives, and complications were discussed, and informed consent was obtained. Specifically, the risks of permanent scar, loss or darkening of skin color, blister and recurrence of lesion were discussed.The patient tolerated the procedure well without complications. Wound care instructions were given. - If no resolution in 3-4 weeks patient to notify clinic for re-evaluation Images taken of #1-4 today Follow-up: 6 months Contact patient via [employer] Patient Phone Numbers Applicable photos (if any) and chart reviewed by Dr. Dc Garvey Presumed diagnoses, expected natural histories, and management options discussed with the patient at length. Questions were addressed and anticipatory guidance provided.The patient was encouraged to contact me with any further questions or concerns. Teagan Jaramillo PA-C 08/05/2023 * Tai Garvey MD - 08/05/2023 8:40 AM EST I have reviewed the relevant notes and photographs taken by Teagan Jaramillo PA-C. I have reviewed and agree with the assessment and plan. Tai Garvey MD documented in this encounter Nursing Notes * Margarette James MED ASSIST - 08/05/2023 8:50 AM EST Chief Complaint Patient presents with NEW PATIENT PCP referred for several skin lesions on face, L forearm, and back. documented in this encounter Plan of Treatment Upcoming Encounters Date Type Department Care Team (Late st Contact Info) Description 08/26/2023 11:15 AM EST Imaging Radiology [facility] 1st [facility], [place] [address] [place] [place] [address] 09/02/2023 4:00 PM EST Office Visit Family Practice [address] [place] [address] [place] [address] Keerthi Cano DO 293 [place] [address] 02/10/2024 9:00 AM EDT Office Visit Dermatology, [place] [facility] [address] [place] [address] [place] [address] Teagan Jaramillo PA-C [address] [place] [address] [place] [address] Pending Results Name Type Priority Associated Diagnoses Date /Time SURGICAL PATHOLOGY Pathology Routine Neoplasm of uncertain behavior of skin 08/05/2023 9:05 AM EST SURGICAL PATHOLOGY Pathology Routine Neoplasm of uncertain behavior of skin 08/05/2023 9:26 AM EST Health Maintenance Due Date Last Done Comments [...] Procedure Name Priority Date/Time Associated Diagnosis Comments DERM IMAGE (SITE) Routine 08/05/2023 Neoplasm of uncertain behavior of skin documented in this encounter Results * DERM IMAGE (SITE) (08/05/2023) 08/05/2023 Teagan Cheryl Jaramillo PA-C DIGITAL PHOTOGRAPHY documented in this encounter Visit Diagnoses Diagnosis Neoplasm of uncertain behavior of skin- Primary AK (actinic keratosis) Actinic keratosis documented in this encounter Advance Directives Latest Code Status on File Code Status Date Activated Date Inactivated Comments No Code 05/23/2019 5:16 PM 05/24/2019 9:25 PM Thi s order reflects the patients wishes and were consensually agreed upon. Care Teams Brand Designer Relationship Specialty Start Date End Date Keerthi Cano DO [address] [place] [address] PCP - General Family Medicine 07/29/23 documented as of this encounter
--- OUTSIDE RECORDS SUMMARY | 2023-12-24 15:56 | External Medical Summary | Summary of Care ---
Author Name Unknown Organization [facility] Address [address] [place] [address] Phone [phone] Care Team Providers Care Netting Weaver Name Role Phone Keerthi Cano DO Primary Care Provider Reason for Visit * Reason Comments NEW PATIENT PCP referred for sev eral skin lesions on face, L forearm, and back. * Evaluate & Treat - Unlimited Visits (Within 3 days (urgent)) - Authorized Specialty Diagnoses / Procedures Referred By Francisco harding Referred To Contact Dermatology Diagnoses Non-healing skin lesion Keerthi Cano DO [address] [place] [address] Referral ID Status Reason Start Date Expiration Date Visits Requested Visits Authorized [id number] Authorized Specialty Services Required 07/29/[phone] Encounter Details Date Type Department Care Team (Late st Contact Info) Description 08/05/2023 8:40 AM EST Office Visit Dermatology, [place] [address] [facility] [address] [place] [address] Teagan Jaramillo PA-C 27 [facility] [place] [address] [place] [address] Neoplasm of uncertain behavior of skin*; AK [...] mRNA, LNP-s, No Pre serve, 2-Dose Series ([employer]) 10/09/2020,09/18/2020 Seasonal Influenza, PF, 6 M [...] Skin disorders: None SOCIAL HISTORY: Retired - quality officer REVIEW OF SYSTEMS: SKIN: No other new [...] today Follow-up: 6 months Contact patient via [employer] Patient Phone Numbers Applicable photos (if any) and chart reviewed by Dr. Dc Garvey Presumed diagnoses, expected natural histories, and management options discussed with the patient at length. Questions were addressed and anticipatory guidance provided.The patient was encouraged to contact me with any further questions or concerns. Teagan Jaramillo PA-C 08/05/2023 documented in this encounter Nursing Notes * Margarette James MED ASSIST - 08/05/2023 8:50 AM EST Chief Complaint Patient presents with NEW PATIENT PCP referred for several skin lesions on face, L forearm, and back. documented in this encounter Plan of Treatment Upcoming Encounters Date Type Department Care Team (Late st Contact Info) Description 08/26/2023 11:15 AM EST Imaging Radiology [facility] 1st [facility] [place] 132 [facility] [place] [address] 09/02/2023 4:00 PM EST Office Visit Family Practice [address] [place] [address] [place] [address] Keerthi Cano DO [address] [place] [address] 02/10/2024 9:00 AM EDT Office Visit Dermatology, [place] Carmen [address] [place] [address] [place] [address] Teagan Jaramillo PA-C [address] [place] [address] [place] [address] Pending Results Name Type Priority Associated Diagnoses [...] as of this encounter Visit Diagnoses Diagnosis Neoplasm of uncertain behavior of skin- Primary AK (actinic keratosis) Actinic keratosis documented in this encounter Advance Directives Latest Code Status on File Code Status Date Activated Date Inactivated Comments No Code 05/23/2019 5:16 PM 05/24/2019 9:25 PM Thi s order reflects the patients wishes and were consensually agreed upon. Care Teams Netting Weaver Relationship Specialty Start Date End Date Keerthi Cano DO [address] [place] [address] PCP - General Family Medicine 07/29/23 documented as of this encounter
--- OUTSIDE RECORDS SUMMARY | 2023-12-24 15:56 | External Medical Summary | Summary of Care ---
Author Name Unknown Organization [facility] Address [address] [place] [address] Phone [phone] Care Team Providers Care Rrts Name Role Phone Keerthi Cano DO Primary Care Provider Reason for Visit * Reason Onset Date Comments Order Request 08/15/202308/15 Information 08/15/202308/16; 08/17; 08/18 Encounter Details Date Type Department Care Team (Late st Contact Info) Description 08/15/2023 Telephone Family Practice [address], [place] [address] [place] [id number] Keerthi Cano DO [address] [place] [address] Order Request (08/15); Information (08/16; 08/17... Allergies Active Allergy Reactions Criticality Noted Date Comments Lisinopril Cough 05/23/2019 documented as of this encounter (statuses as of 08/18/2023) Medications Medication Sig Dispensed Refills Start Date [...] as of this encounter (statuses as of 08/18/2023) Active Problems Problem Noted Date Diagnosed Date Open-angle glaucoma 08/01/2023 Open-angle glaucoma 08/01/2023 Shigella infection 05/24/2019 Essential hypertension with goal blood pressure less than 140/90 05/23/2019 Disorder of ejaculation 05/23/2019 Obstructive sleep apnea syndrome 05/23/2019 Herpes labialis 05/23/2019 Colitis, acute 05/23/2019 documented as of this encounter (statuses as of 08/18/2023) Immunizations Name Administration Dates Next Due COVID-19 mRNA, LNP-s, No Pre serve, 2-Dose Series ([employer] 10/09/2020,09/18/2020 Seasonal Influenza, PF, 6 M & [...] encounter Miscellaneous Notes * Telephone Encounter - Yu Arora LPN - 08/18/2023 11:01 AM EST Call placed to patient. He states he did receive his CPAP supplies from [employer]. No furtherneeds at this time. * Telephone Encounter - Ashlee Duran OSA - 08/18/2023 10:49 AM EST Received a box of supplies. Please give call * Telephone Encounter - Yu Arora LPN - 08/18/2023 10:19 AM EST Spoke to patient. Pt states he follows annually with Sleep medicine at [facility]. States he has an appt coming up in November. Pt reports he takes CPAP chip to sleep medicine for reviews. Discussed with pt that he will need to contact sleep medicine for supplies. Pt stated that [facility] has been notifying him that they are working with sleep medicine for supplies. Pt then stated he has not used his CPAP in a long time as the tubing is broken. States he was taping it together. States he has had the current CPAP for years. Again instructed pt to contact sleep medicine for assistance. Pt stated that sleep medicine will not order the supplies. Will contact [facility] for more information. Pt states he has been working with [facility] at [facility]. * Telephone Encounter - Ashlee Duran OSA - 08/18/2023 9:27 AM EST Returning call * Telephone Encounter - Yu Arora LPN - 08/17/2023 11:56 AM EST Call placed to patient - no answer. Message left to return call to [phone]. MyG also sent to patient. * Telephone Encounter - Yu Arora LPN - 08/16/2023 2:42 PM EST Call placed to patient - no answer. Message left to return call to [phone]. * Telephone Encounter - Vale Berman LPN - 08/15/2023 1:17 PM EST Called, left message for patient to return call. Thank you * Telephone Encounter - Keerthi Cano DO - 08/15/2023 10:23 AM EST Typically, I refer back to sleep medicine but if he has been stable without issue, we can order. Would need specifics and understanding that if there is an issue, we would send him back to sleep med. * Telephone Encounter - Vale Berman LPN - 08/15/2023 10:[address] Cano, patient had seen sleep med 5 years ago. Is this ok to order? Thank you * Telephone Encounter - Lashon Almeida OSA - 08/15/2023 8:38 AM EST Patient called in and needs replacement tubing/hose, mask and straps for his CPAP machine. Patient uses [facility] documented in this encounter Plan of Treatment Upcoming Encounters Date Type Department Care Team (Late st Contact Info) Description 08/26/2023 11:15 AM EST Imaging Radiology [facility] 1st Floor, [place] [address] [facility] [place] [address] 09/02/2023 4:00 PM EST Office Visit Family Practice [address], [place] [address] [place] [phone] Keerthi Cano DO [address] [facility], [place] [address] 11/09/2023 8:00 AM EDT Office Visit [facility] Surgery [facility] [address] [place] [address] Lillie Solitario MD [address] [place] [address] 02/10/2024 9:00 AM EDT Office Visit Dermatology, Jar[facility]o Carmen [address] [place] [address] [place] [address] Teagan Jaramillo PA-C [address] [place] [address] [place] [address] Health Maintenance Due Date Last Done Comments [...] and were consensually agreed upon. Care Teams Rrts Relationship Specialty Start Date End Date Keerthi Cano DO [address] [place], [place] [address] PCP - General Family Medicine 07/29/23 documented as of this encounter
[2023-12-24] MEDS: ASPIRIN 81 MG ECTAB PO SCH (16:22)
[2023-12-24] MEDS: EMTRICITABINE/TENOFOVIR TAB PO SCH (16:22)
[2023-12-24] MEDS: LOSARTAN POTASSIUM 50 MG TAB PO SCH (16:23)
--- NOTE | 2023-12-24 17:52 | Electrocardiogram Report ---
Test Reason : Blood Pressure : / mmHG Vent. Rate : 067 BPM Atrial Rate : 067 BPM P-R Int : 188 ms QRS Dur : 146 ms QT Int : 412 ms P-R-T Axes : 068 249 013 degrees QTc Int : 435 ms Sinus rhythm with fusion beats Possible Left atrial enlargement Right bundle branch block T wave abnormality, consider lateral ischemia Abnormal ECG When compared with ECG of 11-OCT-2020 05:49, fusion beats are now Present Right bundle branch block is now Present Confirmed by Ras Delgadillo ([id number]) on 12/24/2023 5:52:29 PM Referred By: REFERRED SELF Confirmed By:Eyal Delgadillo
[2023-12-24] MEDS: HEPARIN SOD 5,000 UNIT/0.5 ML VIAL SQ SCH (20:28)
[2023-12-24] MEDS: CIPROFLOXACIN 500 MG TAB PO SCH (20:28)
[2023-12-25 08:54] LABS: BUN Creatinine Ratio 12.8 (10-20); Calcium 8.3 mg/dl (8.6-10.3); Creatinine Clr Calc Pharmacy 54.9 ml/min; Est GFR (African American) 63.2 ml/min; Est GFR (Non-African American) 54.5 ml/min; Potassium 3.7 mmol/L (3.5-5.1)
[2023-12-25] MEDS: ADVANCED PROBIOTIC 625 MG CAPSULE PO SCH (08:59)
--- NOTE | 2023-12-25 09:02 | Cardiology Consultation ---
Date of Consultation December 25, 2023 Assessment & Plan (1) Salmonella infection: (2) LUIS (acute kidney injury): (3) Right bundle branch block: (4) Second degree AV block, Mobitz type I: Plan Patient admitted after several days of abdominal pain, nausea, diarrhea. Diagnosed with Shigella and Salmonella. Started on antibiotics. Initially found to have 2nd degree AV block, Type I on EKG and intermittently on telemetry upon admission. Now resolved. No symptoms. Troponin at 21 and 23, likely due to LUIS with creatinine of 1.6 on admission. EKG without acute ischemic changes. Echo with normal LVEF, no wall motion abnormalities. Patient currently asymptomatic. Continue treatment for underlying infectious process. No further cardiac testing warranted at this time. Case discussed with Dr. Mookie Hubbard spent a total of 45 minutes on the date of service in preparation, delivery, and documentation of the care provided to this patient, excluding any time spent in the performance of separately billed services. Susan Durand PA-C Department of Cardiology, [facility] This chart was completed in part utilizing Speech Voice Recognition Software. Grammatical errors, random word insertions, pronoun errors, and incomplete sentences are an occasional consequence of this system due to software limitations, ambient noise, and hardware issues. Any formal questions or concerns about the content, text, or information contained within the body of this dictation should be directly addressed to the provider for clarification. Supervising Physician Co-Signing Physician Notes Patient was seen and personally examined. Full assessment and plan as outlined above. Care and management discussed with advanced provider and personally endorsed Patient currently asymptomatic. Initial Mobitz type I second-degree AV block observed on telemetry and EKG now resolved after correction and volume status and electrolytes. No underlying cardiac disease per patient history and echocardiogram. High functional capacity with good tolerance No further cardiac workup History of Present Illness Reason for Consultation: 2nd degree AV block type I Requesting Physician: August Hospitalist Team Attending Physician: Dr. Damico History of Present Illness Patient is a 68 year old male who presents to presents to [facility] with complaints of generalized weakness after 5 days of fever, myalgias, diarrheal illness. Diagnosed with Salmonella and shigella per stool PCR testing. Started on antibiotics. Cardiology consulted as he was found to have transient 2nd degree AV block type I on initial EKG and last night on telemetry. No symptoms reported. Troponin drawn and was 21 and 23 respectively. No symptoms. no acute EKG changes. He does report intermittent past dizziness with visual changes. he has had extensive cardio and neuro work up in 2022 and 2023 without acute findings. this included past ZIO without arrhythmias. Symptoms were thought to be related to atypical migraine and now improved. No recent syncope or near syncope. Remains active. No chest pain or dyspnea to suggest angina. When patient arrived to [facility] he was found to have elevated creatinine at 1.6 secondary due to dehydration. Started on IV fluids. At time of consult, patient resting in bed feeling well. Abdominal pain and diarrhea now improved. No dizziness or lightheadedness. No chest pain or dyspnea. No recurrent fevers No nausea or vomiting. Hoping to be discharged later today. Allergies Allergy/AdvReac Type Severity Reaction Status Date / Time lisinopril AdvReac Mild cough Verified 12/24/23 09:31 Home Medications Medication Instructions Recorded Confirmed Type CPAP Machine #1 ea 04/10/20 07/18/23 Rx aspirin 81 mg tablet,delayed 81 mg PO QAM 10/09/20 12/24/23 History release (Adult Aspirin Regimen) zublihqf-fi-jjbki 300 mcg-K 60 1 tab PO DAILY 01/05/21 12/24/23 History mcg-lycop 600 mcg-lutein 300 mcg tablet (Centrum Silver Men) CPAP Supplies #1 ea 11/25/21 07/18/23 Rx diclofenac sodium 1 % topical gel 2 g topical QID PRN pain, moderate 06/10/22 12/24/23 Rx #100 grams sildenafil 100 mg tablet 100 mg PO DAILY PRN sexual 09/28/22 12/24/23 Rx activity #10 tabs losartan 50 mg tablet 50 mg PO QAM #90 tabs 06/09/23 12/24/23 Rx celecoxib 200 mg capsule 200 mg PO QAM Osteoarthritis of 09/20/23 12/24/23 Rx hand #90 caps carboxymethylcellulose sodium 1 % 1 drp ophthalmic (eye) BID PRN Dry 12/24/23 12/24/23 History eye liquid gel drops Eyes emtricitabine 200 mg-tenofovir 1 tab PO DAILY 12/24/23 12/24/23 History disoproxil fumarate 300 mg tablet L.acidop,casei,lactis,rham-B.lact,jada 1 cap PO DAILY #7 caps 12/26/23 Rx 625 mg (10 billion cell) capsule (Advanced Probiotic) ciprofloxacin HCl 500 mg tablet 500 mg PO BID #10 tabs 12/26/23 Rx Patient History Medical History Abscess or cellulitis of scalp History of- 2016 MRSA hx of- followed with ID Generalized osteoarthritis of hand Idiopathic peripheral neuropathy Palpitations Hx of - has since resolved Hypertension Sleep apnea cpap Surgical History Ventral hernia (01/15/21) Open Incarcerated Ventral Hernia Repair with Ventralex Mesh Dr. Herring 01/15/2021 S/P rotator cuff repair History of cataract surgery LEFT and right History of tooth extraction History of tonsillectomy History of appendectomy History of colonoscopy Family History Brother Family history of diabetes mellitus Hypertension Lymphoma Father Family history of diabetes mellitus Hypertension Diabetes Mother Brain tumor Cancer Family/Other Cardiac disorder Grandfather (Paternal) Stroke Myocardial infarction Uncle Stroke Grandfather (Maternal) Myocardial infarction Grandfather Heart disease Grandmother Stroke Denies family history of Ovarian cancer Prostate cancer Breast cancer Colorectal cancer Social History Smoking Status: Never smoker Second Hand Exposure: No; Do You Dip or Chew Tobacco: No; Hx Alcohol Use: No Hx Substance Use: No Preferred Language: Frisian Communication Ability: Effective Visual Impairment: No Limitations Hearing Ability: Normal Sign Designer Required: No Beliefs That Will Affect Care: None marital status: Single Current Living Situation: Alone current occupational status: retired How many Children do You have: 0 Feels Safe at Home: Yes Childhood Exposure to Second-Hand Smoke: No Diet: regular Diet Comment: regular caffeine: Yes during the past year weight has: remained stable Dental Care, Regularly: Yes Physical Activity Frequency: Daily Seatbelt Use: always Sunscreen Use: Yes Assistive Devices: Glasses Review of Systems Review of Systems: All systems reviewed & are unremarkable except as noted in HPI & below Physical Exam Constitutional: WD/WN, vitals as above no acute distress Respiratory: normal respiratory effort, lungs clear to auscultation Cardiovascular: Rate/Rhythm: regular rate and regular rhythm Heart Sounds: normal S1 and normal S2; no murmur Vessels: no JVD Extremities: no edema Gastrointestinal (Abdomen): Inspection/Auscultation: normal bowel sounds Percussion/Palpation: abdomen nontender Skin: no rashes, warm and dry Neurologic: PERRL, EOMI, accommodation nl, no face palsy, no dysarthria Psychiatric: A+Ox3, euthymic affect Results & Data Vital Signs (Past 12 Hours) Vital Signs Temp Pulse Pulse Resp BP BP Pulse Ox 12/25/23 07:08 71 20 127/71 98 12/25/23 03:40 37.5 C 76 17 113/66 97 12/24/23 22:07 90 O2 Del Method 12/25/23 07:08 Room Air 12/25/23 03:40 Room Air 12/24/23 22:07 Laboratory Results Comprehensive Metabolic Panel 12/25/23 Range/Units 08:18 Sodium 136 (136-145) mmol/L Potassium 3.7 (3.5-5.1) mmol/L Chloride 108 H (98-107) mmol/L Carbon Dioxide 25 (21-32) mmol/L BUN 17 (6-23) mg/dl Creatinine 1.33 D (0.6-1.4) mg/dl Glucose 111 H (70-99(Fasting)) mg/dl Calcium 8.3 L (8.6-10.3) mg/dl Intake and Output 12/24/23 12/25/23 12/25/23 22:59 06:59 14:59 Intake Total 999 636 / 636 Balance 999 636 / 636 Intake: IV 999 636 / 636 Sodium Chloride 0.9% 1,000 ml @ 1000 / 999 636 / 636 80 mls/hr IV .[id number] [facility] Rx#: [id number] Other: Weight 85.6 kg 85.6 kg Weight Measurement Method Built in [facility] Diagnostic Findings Telemetry reviewed: Currently NSR. Upon initial admission he was having several episodes of asymptomtaic 2nd degree AV block type I. Now resolved EKG reviewed from admission: 2nd degree AV block, Mobitz I RBBB T wave inversion in inferior and lateral leads Repeat EKG reviewed from 12/24: NSR, RBBB T wave inversion in inferior leads Echo reviewed from 12/25/23: LV is normal in size Mild concentric LVH LVEF is normal at 55-60% No significant valvular disease Outside data: [facility] 07/2023 Patient had a min HR of 48 bpm, max HR of 153 bpm, and avg HR of 80 bpm. Predominant underlying rhythm was Sinus Rhythm. Bundle Branch Block/IVCD was present. 1 run of Ventricular Tachycardia occurred lasting 6 beats with a max rate of 103 bpm (avg 103 bpm). 2 Supraventricular Tachycardia runs occurred, the run with the fastest interval lasting 7 beats with a max rate of 114 bpm (avg 109 bpm); the run with the fastest interval was also the longest. Isolated SVEs were rare (<1.0%), SVE Couplets were rare (<1.0%), and SVE Triplets were rare (<1.0%). Isolated VEs were rare (<1.0%, 5291), VE Couplets were rare (<1.0%, 101), and VE Triplets were rare (<1.0%, 1). Ventricular Bigeminy and Trigeminy were present. Agree with Preliminary Findings The patient's triggered events and diary entries correlated mostly to sinus rhythm. Echo 10/11/20 ([facility]) EF 55-60% Mild concentric left ventricular hypertrophy Grade I diastolic dysfunction No significant valvular disease Medications Administered Current Inpatient Medications Acetaminophen (Acetaminophen 325 Mg Tab) 650 mg PO Q4H PRN PRN Reason: Pain or Fever Stop: 01/23/24 09:59 Last Admin: 12/25/23 09:04 Dose: 650 mg Al Hydrox/Mg Hydrox/Simethicone (Aluminum/Magnesium Susp 30 Ml Udc) 15 ml PO Q4H PRN PRN Reason: Dyspepsia Stop: 01/23/24 09:59 Aspirin (Aspirin 81 Mg Ectab) 81 mg PO QAM [facility] Stop: 01/23/24 15:14 Last Admin: 12/24/23 16:22 Dose: 81 mg Ciprofloxacin (Ciprofloxacin 500 Mg Tab) 500 mg PO BID [facility]; Protocol Stop: 01/03/24 20:59 Last Admin: 12/25/23 08:59 Dose: 500 mg Emtricitabine/Tenofovir (Emtricitabine/Tenofovir Tab) 1 tab PO DAILY [facility]; Protocol Stop: 01/23/24 14:59 Last Admin: 12/25/23 08:59 Dose: 1 tab Heparin Sodium (Porcine) (Heparin Sod 5,000 Unit/0.5 Ml Vial) 5,000 units SQ Q12 [facility] Stop: 01/23/24 20:59 Last Admin: 12/25/23 09:00 Dose: 5,000 units Sodium Chloride (Nss) 1,000 mls @ 80 mls/hr IV .[id number] [facility] Stop: 12/25/23 23:29 Last Admin: 12/25/23 09:12 Dose: 80 mls/hr Lactobacillus Acidophilus (Advanced Probiotic 625 Mg Capsule) 1,250 mg PO DAILY [facility] Stop: 01/24/24 08:59 Last Admin: 12/25/23 08:59 Dose: 1,250 mg Losartan Potassium (Losartan Potassium 50 Mg Tab) 50 mg PO QAM [facility] Stop: 01/23/24 15:14 Last Admin: 12/25/23 08:59 Dose: 50 mg Nitroglycerin (Nitroglycerin Sl 0.4 Mg/Tab Tab) 0.4 mg SL Q5M PRN PRN Reason: Chest Pain Stop: 01/23/24 09:59
--- NOTE | 2023-12-25 13:07 | Hospitalist Progress Note ---
Date of Service December 25, 2023 Assessment & Plan (1) LUIS (acute kidney injury): Plan Patient is a 68-year-old gentleman is admitted and is being managed for the following: Acute Gastroenteritis Sepsis--POA Secondary to Salmonella/Shigella infection --Blood Cx:pending -- Stool PCR positive for Salmonella, Shigella BioFire negative Serology for tickborne illness pending Continue ciprofloxacin, IV fluids Clinically improving Acute kidney injury Cr:1.6>>1.3 --Renal USD:No renal calculi or hydronephrosis identified by ultrasound. Avoid nephrotoxic agents as able Monitor renal function Continue IV fluids Losartan on hold Mild troponin elevation Likely secondary to sepsis, LUIS RICHARD CPAP HS HTN Preventative therapy with Truvada Continue losartan Monitor BP DVT Px: Heparin DQ Code Status DNI/DNI Admission and Anticipated Discharge Date Admission Date: December 24, 2023 Subjective Patient is seen and examined at bedside Diarrhea improving Denies any nausea, vomiting, abdominal pain, chest pain, dyspnea Offers no other complaints Review of Systems Review of Systems: All systems reviewed & are unremarkable except as noted in Subjective Physical Exam Physical Exam: Physical Exam: Vitals signs as noted above General Appearance:Moderately built and nourished, no apparent distress Head: normocephalic, Atraumatic Eyes: normal inspection, EOMI Neck: supple, Trachea midline Respiratory/Chest: Normal breath sounds, CTA, No accessory muscle use Cardiovascular: S1, S2, No murmur Abdomen/GI:Soft, Non tender, Bowel sounds present Extremities/Musculoskeletal:normal inspection, no edema Neurologic/Psych:AAOX3, grossly no focal neurological deficits Skin: normal color, warm Results & Data Results & Data Vital Signs (Past 12 Hours) Vital Signs Temp Pulse Pulse Resp BP BP Pulse Ox 12/25/23 11:31 36.7 C 62 19 115/69 97 12/25/23 09:00 74 12/25/23 07:08 71 20 127/71 98 12/25/23 03:40 37.5 C 76 17 113/66 97 O2 Del Method 12/25/23 11:31 Room Air 12/25/23 09:00 12/25/23 07:08 Room Air 12/25/23 03:40 Room Air Laboratory Results [facility] 12/25/23 08:18 Sodium 136 Potassium 3.7 Chloride 108 H Carbon Dioxide 25 BUN 17 Creatinine 1.33 D Glucose 111 H Calcium 8.3 L
--- NOTE | 2023-12-25 14:51 | Electrocardiogram Report ---
Test Reason : Blood Pressure : / mmHG Vent. Rate : 070 BPM Atrial Rate : 070 BPM P-R Int : 200 ms QRS Dur : 138 ms QT Int : 432 ms P-R-T Axes : 055 242 002 degrees QTc Int : 466 ms Normal sinus rhythm Right bundle branch block Abnormal ECG When compared with ECG of 24-DEC-2023 07:17, T wave inversion no longer evident in Lateral leads Confirmed by Anthony Potter ([id number]) on 12/25/2023 2:50:43 PM Referred By: REFERRED SELF Confirmed By:Anthony Potter
[2023-12-26 07:15] LABS: Hematocrit (blood only) 44.1 % (42.0-52.0); Hemoglobin 15.5 g/dl (14.0-18.0); Mean Corpuscular Hemoglobin 31.9 pg (25.0-34.0); Mean Corpuscular Hgb Conc 35.1 g/dL (32.0-36.0); Mean Corpuscular Volume 90.7 fL (80.0-100.0); Mean Platelet Volume 9.1 fL (9.4-12.4); Platelet Count 151 K/uL (130-400); RDW Coefficient of Variation 13.7 % (11.5-14.5); RDW Standard Deviation 46.3 fL (36.4-46.3); Red Blood Count 4.86 M/uL (4.70-6.10); White Blood Count 4.05 K/ul (4.8-10.8)
[2023-12-26 07:29] LABS: BUN Creatinine Ratio 12.4 (10-20); Calcium 8.8 mg/dl (8.6-10.3); Creatinine Clr Calc Pharmacy 64.6 ml/min; Est GFR (Non-African American) 66.4 ml/min; Potassium 3.7 mmol/L (3.5-5.1)
[2023-12-26 07:45] LABS: Thyroid Stimulating Hormone 3.018 uIu/ml (0.300-4.500)
[2023-12-26] MEDS: POTASSIUM CHLORIDE 10 MEQ TABCR PO ONE (09:34)
--- NOTE | 2023-12-26 11:25 | Hospitalist Progress Note ---
Date of Service December 26, 2023 Assessment & Plan (1) LUIS (acute kidney injury): Plan Patient is a 68-year-old gentleman is admitted and is being managed for the following: Acute Gastroenteritis Sepsis--POA Secondary to Salmonella/Shigella infection --Blood Cx:Megative to date -- Stool PCR positive for Salmonella, Shigella BioFire negative Serology for tickborne illness pending Continue ciprofloxacin Discontinue IV fluids Diarrhea resolved Plan to be discharged home today Acute kidney injury Cr:1.6>>1.3>1.1 --Renal USD:No renal calculi or hydronephrosis identified by ultrasound. Avoid nephrotoxic agents as able Monitor renal function Received IV fluids Losartan on hold Mild troponin elevation Likely secondary to sepsis, LUIS RICHARD CPAP HS HTN Preventative therapy with Truvada Continue losartan Monitor BP DVT Px: Heparin DQ Code Status DNI/DNI Disposition Home Admission and Anticipated Discharge Date Admission Date: December 24, 2023 Subjective Patient is seen and examined at bedside Doing well today Diarrhea resolved Offers no new complaints Denies any nausea, vomiting, abdominal pain, chest pain, dyspnea Plan to be discharged home today Review of Systems Review of Systems: All systems reviewed & are unremarkable except as noted in Subjective Physical Exam Physical Exam: Physical Exam: Vitals signs as noted above General Appearance:Moderately built and nourished, no apparent distress Head: normocephalic, Atraumatic Eyes: normal inspection, EOMI Neck: supple, Trachea midline Respiratory/Chest: Normal breath sounds, CTA, No accessory muscle use Cardiovascular: S1, S2, No murmur Abdomen/GI:Soft, Non tender, Bowel sounds present Extremities/Musculoskeletal:normal inspection, no edema Neurologic/Psych:AAOX3, grossly no focal neurological deficits Skin: normal color, warm Results & Data Results & Data Vital Signs (Past 12 Hours) Vital Signs Temp Pulse Pulse Resp BP BP Pulse Ox 12/26/23 10:00 58 L 12/26/23 08:12 36.5 C 57 L 21 129/67 98 12/26/23 03:57 36.7 C 55 L 18 120/72 96 O2 Del Method 12/26/23 10:00 12/26/23 08:12 Room Air 12/26/23 03:57 Room Air Laboratory Results Short CBC 12/26/23 Range/Units 06:35 WBC 4.05 L (4.8-10.8) K/ul Hgb 15.5 D (14.0-18.0) g/dl Hct 44.1 (42.0-52.0) % Plt Count 151 (130-400) K/uL [facility] 12/26/23 06:35 Sodium 140 Potassium 3.7 Chloride 108 H Carbon Dioxide 28 BUN 14 Creatinine 1.13 Glucose 108 H Calcium 8.8
--- NOTE | 2023-12-26 11:31 | Discharge Summary ---
Date of Service December 26, 2023 Admission HPI Per Admitting Provider 68-year-old male with PMH of RICHARD on CPAP, Truvada as preventative therapy, HTN, migraine on prn meclizine per pt, open-angle glaucoma presented to the ED with complaint of feeling not well/generalized body aches/intermittent fever [ patient states moderate fever], progressive weakness/had hard time moving around, could not sleep since Tuesday. Patient reports having sore throat and diarrhea starting from . Reports headache on and off. Denies nausea and vomiting, reports decreased appetite. Patient denies cough/chest pain/palpitation/belly pain. Patient denies pain or burning while passing urine. Patient declines smoking/alcohol/recreational drug use. Medications were reviewed with the patient Plan of care was discussed with the patient in detail. He was understanding and was agreeable. DNR/DNI as per my discussion with the patient. Admission Exam Per Admitting Provider GENERAL: Alert and oriented x3. NAD, on RA. HEENT: No pallor, no icterus. Pupils equal, round and reactive to light. Oral mucosa moist. NECK: No JVD, no neck masses. HEART: S1 and S2 heard. Regular rate and rhythm. No murmur, no gallop. RESPIRATORY SYSTEM: Normal AP diameter. No accessory muscle use. No wheezing, no crackles. ABDOMEN: Soft, bowel sounds present, nontender, no distention. CENTRAL NERVOUS SYSTEM: No facial droop. Speech is clear. Obeys simple commands. Moves extremities. EXTREMITIES: No edema, no erythema seen. Principal Diagnosis Acute Gastroenteritis Sepsis Acute kidney injury Second degree AV block, Mobitz type I--Resolved Discharge Data Allergies Allergy/AdvReac Type Severity Reaction Status Date / Time lisinopril AdvReac Mild cough Verified 12/24/23 09:31 Consultations 12/24/23 09:25 ED Decision to Admit Stat 12/24/23 10:00 Consult Cardiology Routine Procedures Performed Laboratory Results WBC 4.05 K/ul (4.8-10.8) L 12/26/23 06:35 RBC 4.86 M/uL (4.70-6.10) 12/26/23 06:35 Hgb 15.5 g/dl (14.0-18.0) D 12/26/23 06:35 Hct 44.1 % (42.0-52.0) 12/26/23 06:35 MCV 90.7 fL (80.0-100.0) 12/26/23 06:35 MCH 31.9 pg (25.0-34.0) 12/26/23 06:35 MCHC 35.1 g/dL (32.0-36.0) 12/26/23 06:35 RDW Std Deviation 46.3 fL (36.4-46.3) 12/26/23 06:35 RDW Coeff of Ciro 13.7 % (11.5-14.5) 12/26/23 06:35 Plt Count 151 K/uL (130-400) 12/26/23 06:35 MPV 9.1 fL (9.4-12.4) L 12/26/23 06:35 Immature Gran % (Auto) 0.1 % 12/24/23 07:25 Neut % (Auto) 81.5 % 12/24/23 07:25 Lymph % (Auto) 10.2 % 12/24/23 07:25 Frontier % (Auto) 7.8 % 12/24/23 07:25 Eos % (Auto) 0.0 % 12/24/23 07:25 Baso % (Auto) 0.4 % 12/24/23 07:25 Neut # (Auto) 5.66 K/uL (1.40-6.50) 12/24/23 07:25 Lymph # (Auto) 0.71 K/uL (1.20-3.40) L 12/24/23 07:25 Frontier # (Auto) 0.54 K/uL (0.11-0.59) 12/24/23 07:25 Eos # (Auto) 0.00 K/uL (0.00-0.50) 12/24/23 07:25 Baso # (Auto) 0.03 K/uL (0.00-0.20) 12/24/23 07:25 Immature Gran # (Auto) 0.01 K/uL (0.01-0.20) 12/24/23 07:25 Toxic Vacuolation 1+ 12/24/23 07:25 Sodium 140 mmol/L (136-145) 12/26/23 06:35 Potassium 3.7 mmol/L (3.5-5.1) 12/26/23 06:35 Chloride 108 mmol/L (98-107) H 12/26/23 06:35 Carbon Dioxide 28 mmol/L (21-32) 12/26/23 06:35 Anion Gap 4 (3-11) 12/26/23 06:35 BUN 14 mg/dl (6-23) 12/26/23 06:35 Creatinine 1.13 mg/dl (0.6-1.4) 12/26/23 06:35 Est Cr Clr Drug Dosing 64.6 ml/min 12/26/23 06:35 Est GFR ( Amer) 77.0 ml/min 12/26/23 06:35 Est GFR (Non-Af Amer) 66.4 ml/min 12/26/23 06:35 BUN/Creatinine Ratio 12.4 (10-20) 12/26/23 06:35 Glucose 108 mg/dl (70-99(Fasting)) H 12/26/23 06:35 Lactate 1.8 mmol/L (0.4-2.0) 12/24/23 07:25 Calcium 8.8 mg/dl (8.6-10.3) 12/26/23 06:35 Magnesium 2.1 mg/dl (1.7-2.4) 12/24/23 07:25 Total Bilirubin 0.7 mg/dl (0.2-1.0) 12/24/23 07:25 Direct Bilirubin 0.1 mg/dl (0-0.2) 12/24/23 07:25 AST 20 U/L (13-39) 12/24/23 07:25 ALT 18 U/L (7-52) 12/24/23 07:25 Alkaline Phosphatase 61 U/L (34-104) 12/24/23 07:25 Total Creatine Kinase 141 U/L (30-223) 12/24/23 09:25 Troponin I High Sens 23.1 pg/ml (0-20) H 12/24/23 09:25 C-Reactive Protein 14.40 mg/dl (0-0.5) H 12/24/23 09:25 Total Protein 7.9 gm/dl (6.0-8.3) 12/24/23 07:25 Albumin 4.4 gm/dl (3.4-5.0) 12/24/23 07:25 Procalcitonin 0.37 ng/ml (0-0.5) 12/24/23 07:25 TSH 3.018 uIu/ml (0.300-4.500) 12/26/23 06:35 Free T4 0.82 ng/dl (0.61-1.60) 12/24/23 09:25 Urine Color Dark Yellow 12/24/23 09:30 Urine Appearance Clear (Clear) 12/24/23 09:30 Urine pH 5.5 (4.5-7.5) 12/24/23 09:30 Ur Specific [place] 1.028 (1.000-1.030) 12/24/23 09:30 Urine Protein 2+ (Negative) H 12/24/23 09:30 Urine Glucose (UA) Negative (Negative) 12/24/23: Urine Ketones Trace (Negative) H 12/24/23 09:30 Urine Blood 1+ (Negative) H 12/24/23 09:30 Urine Nitrite Negative (Negative) 12/24/23 09: Urine Bilirubin Negative (Negative) 12/24/23 09:30 Urine Urobilinogen Negative (Negative) 12/24/23 09:30 Ur Leukocyte Esterase Negative (Negative) 12/24/23 09:30 Urine WBC (Auto) 0-5 /hpf (0-5) 12/24/23:30 Urine RBC (Auto) 3-5 /hpf (0-2) H 12/24/23 09:30 U Hyaline Cast (Auto) 0-2 /lpf (0-2) 12/24/23 09:30 U Epithel Cells (Auto) 0-2 /hpf (0-2) 12/24/23 09:30 Urine Bacteria (Auto) None Seen (None Seen) 12/24/23 09:30 Urine Mucus Present (None Prsent) A 12/24/23 09: Stl C. cayetanensis PCR Not Detected (NotDetected) 12/24/23 09: Stool Rotavirus A PCR Not Detected (NotDetected) 12/24/23 09:30 Stl Adenov F 40/41 PCR Not Detected (NotDetected) 12/24/23 09:30 Stool Astrovirus (PCR) Not Detected (NotDetected) 12/24/23 09: Stool Campylobacter PCR Not Detected (NotDetected) 12/24/23 09:30 Stl C. diff Tox B Gene Negative Cdiff Gene (Neg) 12/24/23 09:30 Stool Cryptosporidium PCR Not Detected (NotDetected) 12/24/23 09:30 Stl E.coli Shiga Tox PCR Not Detected (NotDetected) 12/24/23 09:30 Stl Enterotoxigenic E PCR Not Detected (NotDetected) 12/24/23 09:30 Stool EPEC (PCR) Not Detected (NotDetected) 12/24/23 09:30 Stool EAEC (PCR) Not Detected (NotDetected) 12/24/23 09:30 Stl E. histolytica PCR Not Detected (NotDetected) 12/24/23 09:30 Stool Giardia Lamblia PCR Not Detected (NotDetected) 12/24/23 09:30 Stool Salmonella PCR DETECTED (NotDetected) A* 12/24/23 09:30 Stool Sapovirus (PCR) Not Detected (NotDetected) 12/24/23 09:30 Stl P. shigelloides PCR Not Detected (NotDetected) 12/24/23 09:30 Stl Shigella/EIEC PCR DETECTED (NotDetected) A* 12/24/23 09:30 St Y.enterocolitica PCR Not Detected (NotDetected) 12/24/23 09:30 Stool Vibrio (PCR) Not Detected (NotDetected) 12/24/23 09:30 Stl Vibrio cholerae PCR Not Detected (NotDetected) 12/24/23 09:30 Stl Norovirus GI/GII PCR Not Detected (NotDetected) 12/24/23 09:30 Adenovirus (PCR) Not Detected (NotDetected) 12/24/23 07:35 Anaplasma Smear See Comment 12/24/23 09:25 Babesia Smear See Comment 12/24/23 09:25 B. pertussis DNA (PCR) Not Detected (NotDetected) 12/24/23 07:35 B.parapertussis DNA PCR Not Detected (NotDetected) 12/24/23 07:35 Lyme Disease Screen Negative (Negative) 12/24/23 09:25 C. pneumoniae DNA (PCR) Not Detected (NotDetected) 12/24/23 07:35 Coronavirus OC43 (PCR) Not Detected (NotDetected) 12/24/23 07:35 Coronavirus HKU1 (PCR) Not Detected (NotDetected) 12/24/23 07:35 Coronavirus 229E (PCR) Not Detected (NotDetected) 12/24/23 07:35 SARS-CoV-2 (PCR) Not Detected (NotDetected) 12/24/23 07:35 Coronavirus NL63 (PCR) Not Detected (NotDetected) 12/24/23 07:35 Human Metapneumovir PCR Not Detected (NotDetected) 12/24/23 07:35 Influenza Type A (PCR) Not Detected (NotDetected) 12/24/23 07:35 Influenza Type B (PCR) Not Detected (NotDetected) 12/24/23 07:35 M. pneumoniae (PCR) Not Detected (NotDetected) 12/24/23 07:35 Parainfluenza 1 (PCR) Not Detected (NotDetected) 12/24/23 07:35 Parainfluenza 2 (PCR) Not Detected (NotDetected) 12/24/23 07:35 Parainfluenza 3 (PCR) Not Detected (NotDetected) 12/24/23 07:35 Parainfluenza 4 (PCR) Not Detected (NotDetected) 12/24/23 07:35 RSV (PCR) Not Detected (NotDetected) 12/24/23 07:35 Entero/Rhino (PCR) Not Detected (NotDetected) 12/24/23 07:35 Impressions Chest X-Ray 12/24/23 07:06 XR chest 1V portable HISTORY: 68 years-old Male Sepsis acute sepsis COMPARISON: 10/10/2020 TECHNIQUE: AP view of the chest FINDINGS: Cardiomediastinal and hilar silhouettes are within normal limits. The lungs are clear. No pneumothorax or pleural effusion. IMPRESSION: No acute process. ACT 112: Negative or not required by law. The above report was generated using voice recognition software. It may contain grammatical, syntax or spelling errors. Electronically signed by: John Montes M.D. 12/24/2023 8:05 AM Renal Ultrasound 12/24/23 10:00 RENAL ULTRASOUND HISTORY: Acute kidney injury w/u luis COMPARISON: CT abdomen and pelvis 05/20/2019. FINDINGS: Right kidney: 11.8 cm. Exophytic cyst of the inferior pole measures 2.8 x 2.3 x 3.0 cm, 2.5 cm on the prior exam. No solid renal mass lesion is identified. No hydronephrosis. Normal corticomedullary differentiation and cortical thickness. Left kidney: 12.9 cm. 2.0 x 1.6 x 2.4 cm cyst of the superior pole, previously 1.6 cm. No solid renal mass lesion is identified. No hydronephrosis. Normal corticomedullary differentiation and cortical thickness. Bladder: No bladder wall thickening. The bilateral ureteral jets were identified. Prostatomegaly. IMPRESSION: No renal calculi or hydronephrosis identified by ultrasound. ACT 112: Negative or not required by law. Electronically signed by: John Montes M.D. 12/24/2023 12:26 PM Ordered Studies 12/24/23 10:00 US Renal Bladder [US renal/blad retro comp] Routine Hospital Course (1) LUIS (acute kidney injury): Plan Patient is a 68-year-old gentleman is admitted and is being managed for the following: Acute Gastroenteritis Sepsis--POA Secondary to Salmonella/Shigella infection --Blood Cx:Megative to date -- Stool PCR positive for Salmonella, Shigella BioFire negative Serology for tickborne illness pending Continue ciprofloxacin Discontinue IV fluids Diarrhea resolved Plan to be discharged home today Acute kidney injury Cr:1.6>>1.3>1.1 --Renal USD:No renal calculi or hydronephrosis identified by ultrasound. Avoid nephrotoxic agents as able Monitor renal function Received IV fluids Losartan on hold Second degree AV block, Mobitz type I--POA Incidental finding on initial EKG Resolved Appreciate cardiology input Echo reviewed Mild troponin elevation Likely secondary to sepsis, LUIS RICHARD CPAP HS HTN Preventative therapy with Truvada Continue losartan Monitor BP DVT Px: Heparin DQ Code Status DNI/DNI Disposition Home Total Time Total Time Spent Total Time Spent (In Minutes): 54 minutes Discharge Plan Discharge Items Patient Disposition: Home - Self-Care Reason For Visit: generalized weaknes, diarrhea Discharge Diagnosis: Acute Gastroenteritis Sepsis Acute kidney injury Second degree AV block, Mobitz type I--Resolved Activity: Per Instructions section Exercise/Sports: Gradually increase as tolerated Non-emergency contact: Primary Care Provider Call non-emergency contact if: you have any medication questions, your symptoms worsen, your pain is concerning for you and you have a fever Follow-up/Referrals: Keerthi Cano, [Primary Care Provider] - (The [facility] office is aware of your discharge. Dr Cano's office will contact you for a follow up appointment.) Diet: Heart Healthy Addtl Attending Provider Instructions: Follow-up with your primary care physician in 1 week Consider following with your physicist nuclear for further evaluation of abnormal EKG noted at the time of your admission. -- Complete the antibiotic course ciprofloxacin as prescribed Seek immediate medical attention if your symptoms reoccur or worsen Please take all medications as instructed on discharge list below. Please call if you have any questions or problems. You can reach a [facility] hospitalist on duty at [facility] 24 hours a day by calling [phone] Pending Studies at Discharge: Yes Studies:: Blood cultures Stand-Alone Forms: My [facility], Smoking Cessation Medications and DC Order Prescriptions: New ciprofloxacin HCl 500 mg Tablet 500 mg PO BID Qty: 10 0RF Advanced Probiotic 625 mg (10 billion cell) Capsule 1 cap PO DAILY Qty: 7 0RF Continued sildenafil 100 mg tablet 100 mg PO DAILY PRN (Reason: sexual activity) Qty: 10 5RF Rx Instructions: administer 30 minutes to 4 hours before activity Centrum Silver Men 300-600-300 mcg tablet 1 tab PO DAILY (DME) CPAP Supplies Misc .Route Qty: 1 0RF Rx Instructions: CPAP supplies including tubing, mask, filters, and hoses, lifetime need, [facility] (DME) CPAP Machine Misc See Rx Instructions .ROUTE .MEDSUPPLY Qty: 1 0RF Rx Instructions: 10 cmH2O diclofenac sodium 1 % gel 2 g topical QID PRN (Reason: pain, moderate) Qty: 100 2RF aspirin [Adult Aspirin Regimen] 81 mg tablet,delayed release (DR/EC) 81 mg PO QAM carboxymethylcellulose sodium [Refresh] 1 % Drops, Liquid Gel 1 drp OPHTHALMIC (EYE) BID PRN (Reason: Dry Eyes) emtricitabine-tenofovir (TDF) 200-300 mg tablet 1 tab PO DAILY Held losartan 50 mg tablet 50 mg PO QAM Qty: 90 1RF Hold Instructions: surplus celecoxib 200 mg capsule 200 mg PO QAM Qty: 90 1RF Hold Instructions: excess supply at home Discharge Orders: Discharge Order (Routine); Ordered 12/26/23 Ordered By: Karsten Price Admission Data Admit Date/Time: 12/24/23 10:01 Attending Provider: Karsten Price Admit Provider: Suly Enriquez Primary Care Provider: Keerthi Cano Other Providers: Suly Enriquez; Christiano Damico
--- NOTE | 2023-12-26 17:11 | Electrocardiogram Report ---
Test Reason : Blood Pressure : / mmHG Vent. Rate : 066 BPM Atrial Rate : 053 BPM P-R Int : 216 ms QRS Dur : 134 ms QT Int : 418 ms P-R-T Axes : 046 217 014 degrees QTc Int : 438 ms Sinus bradycardia with 1st degree A-V block with frequent Premature ventricular complexes Right bundle branch block Septal infarct , age undetermined Abnormal ECG When compared with ECG of 25-DEC-2023 06:41, Premature ventricular complexes are now Present Septal infarct is now Present Confirmed by Anthony Potter ([id number]) on 12/26/2023 5:11:15 PM Referred By: REFERRED SELF Confirmed By:Anthony Potter
== END 2023-12-26 12:13 | disposition home or self-care (01) | DRG 872 ==
LOC: ED 06:37 → EDINP 10:01 → SUATTDRO 10:01 → 4W 14:59
DX: A03.9 Shigellosis, unspecified; R65.20 Severe sepsis without septic shock; I24.89 Other forms of acute ischemic heart disease; A41.9 Sepsis, unspecified organism; Z79.82 Long term (current) use of aspirin; G47.33 Obstructive sleep apnea (adult) (pediatric); G43.909 Migraine, unspecified, not intractable, without status migrainosus; H40.10X0 Unspecified open-angle glaucoma, stage unspecified; I10 Essential (primary) hypertension; A02.0 Salmonella enteritis; Z88.8 Allergy status to other drugs, medicaments and biological substances; I44.1 Atrioventricular block, second degree; I45.10 Unspecified right bundle-branch block; N17.9 Acute kidney failure, unspecified; Z79.899 Other long term (current) drug therapy